=== PATIENT | female | born 1950 | race Caucasian/White ===

== ENCOUNTER 2016-05-08 05:30 | Inpatient (IN) | payer OTHER ==
--- NOTE | 2016-05-07 17:22 | GHP ---
DATE OF ADMISSION: 05/08/2016 HISTORY: The patient is a pleasant 66-year-old woman who sustained an L2 compression fracture in February of 2016 when picking up a heavy log that she tossed into a fire place and then fell backward. Currently, 80% of her symptoms are referable to left lower extremity pain and 20% are referable to low back pain. She does have a history of osteopenia. The patient denies any loss of bowel or bladder control, but she has had urinary retention for the last 1 year and uses a catheter occasionally. On a 1-10 scale, her daily pain is a 9. Treatments have included pain medication, epidural steroid injections, and physical therapy as well as massage therapy. She recently underwent an EMG that showed lumbar radiculopathy. SOCIAL HISTORY: Negative for tobacco. She uses alcohol occasionally. She is retired. FAMILY HISTORY: Cancer, lung disease, and heart disease. PAST MEDICAL HISTORY: Osteopenia, urinary retention, lumbar spinal stenosis, hypercholesterolemia, and coronary artery disease. PAST SURGICAL HISTORY: Bilateral cataract surgery and left tear duct surgery. DRUG ALLERGIES: None. MEDICATIONS: Fluoxetine, Troy, clonazepam, Lipitor, tamsulosin, and gabapentin. REVIEW OF SYSTEMS: A 10-point review is negative for any pertinent positives. PHYSICAL EXAM: VITAL SIGNS: Blood pressure is 128/82. Height is 5 feet 6 inches tall and weight is 130 pounds. CARDIAC: Regular rate and rhythm without any detectable murmur, rub, or gallop. LUNGS: Clear to auscultation. She has no wheezing or rhonchi. ABDOMEN: Benign with good bowel sounds and is nontender. NEUROLOGIC: Shows her gait to be antalgic. Strength of bilateral lower extremities is 5/5 throughout, with the exception of the left quadriceps, is 4/5. Light touch is intact to bilateral lower extremities. Patellar and Achilles reflexes are 1/4 bilaterally. Straight-leg raising is negative x2. SPINE: She does have an active shingles breakout at approximately T11 on the left. She is also tender to palpation in the left sciatic notch. L2 is mildly tender to palpation. RADIOGRAPHIC STUDIES: MRI of the lumbar spine dated 04/09/2016 shows an endplate fracture inferiorly at L2. This appears to be a compression fracture. She also has moderate degenerative disk disease, L3-4. There is scoliosis. There is also a left L2-3 disc herniation and severe stenosis, L3-4, L4-5, and moderate at L2-3. Recent DEXA scan does show osteoporosis. IMPRESSION: 1. Osteoporotic L2 compression fracture. 2. Left L2-3 disc herniation. 3. Left L3 radiculopathy. 4. Degenerative lumbar scoliosis. 5. Severe stenosis, L3-L5, and moderate stenosis, L2-3. PLAN: The patient will be admitted for an L2-L5 partial laminectomy and posterior fusion with instrumentation using intraspinous process devices. Potential risks, benefits, possible complications have been thoroughly discussed with the patient including, but not limited to, dural tear with CSF leak, meningitis, nerve root injury, partial or complete paralysis, lack of improvement in symptomatology, specifically her left leg pain and weakness, nonunion, breakage or pullout of internal fixation, need for further surgery, DVT, PE, pneumonia, stroke, heart attack, hemorrhage, blindness, and . The patient understands the risks and benefits and wishes to proceed with the aforementioned operation. I anticipate a 2-3 day hospital stay. /[id number]/MODL MTDD
[2016-05-08] MEDS ORDERED: LIDOCAINE 1% 5 ML SDV ONE (06:36)
[2016-05-08] MEDS ORDERED: BACITRACIN 50,000 UNITS/10 ML SYR IRR ONE (06:46)
[2016-05-08] MEDS ORDERED: BUPIVACAINE 0.25% 30 ML SDV ONE (06:46)
[2016-05-08] MEDS ORDERED: THROMBIN (RECOMBINANT) 20,000 UNIT VIAL TP ONE (06:46)
[2016-05-08] MEDS ORDERED: fentaNYL 250 MCG/5 ML INJ ONE (07:11)
[2016-05-08] MEDS ORDERED: PROPOFOL/EMULSION 500 MG/50 ML BOTTLE IV ONE (07:11)
[2016-05-08] MEDS ORDERED: MIDAZOLAM 2 MG/2 ML VIAL ONE (07:15)
[2016-05-08] MEDS ORDERED: REMIFENTANIL HCL 1 MG VIAL ONE (07:46)
[2016-05-08] MEDS ORDERED: ceFAZolin 2 GM/DEXTROSE 100 ML IV ONE (08:00)
[2016-05-08] MEDS ORDERED: VASOPRESSIN 20 UNIT/ML VIAL ONE (08:29)
[2016-05-08] MEDS ORDERED: AVITENE POWDER 1 GM JAR TP ONE (08:34)
[2016-05-08] MEDS ORDERED: SUGAMMADEX SODIUM 200 MG/2 ML VIAL IVP ONE (09:01)
[2016-05-08] MEDS ORDERED: THROMBIN (RECOMBINANT) 5,000 UNIT VIAL TP ONE (09:03)
[2016-05-08] MEDS ORDERED: PHENYLEPHRINE HCL 100 MCG/ML SYR ONE (10:07)
[2016-05-08] MEDS ORDERED: ROCURONIUM 50 MG/5 ML VIAL ONE ×2 (10:07)
[2016-05-08] MEDS ORDERED: epHEDrine SULFATE 10 MG/ML SYR ONE (10:07)
[2016-05-08] MEDS ORDERED: DEXAMETHASONE 4 MG/ML VIAL ONE (10:27)
[2016-05-08] MEDS ORDERED: ONDANSETRON 4 MG/2 ML VIAL ONE (10:27)
[2016-05-08] MEDS ORDERED: ceFAZolin 1 GM VIAL ONE (10:34)
[2016-05-08] MEDS ORDERED: ONDANSETRON DISINTEGRATING 4 MG TAB PO PRN (10:43)
[2016-05-08] MEDS ORDERED: PROMETHAZINE HCL 25 MG/ML INJ IVP PRN (10:43)
[2016-05-08] MEDS ORDERED: ONDANSETRON 4 MG/2 ML VIAL IVP PRN (10:43)
[2016-05-08] MEDS ORDERED: LACTULOSE 20 GM/30 ML UDCUP PO PRN (10:43)
[2016-05-08] MEDS ORDERED: POLYETHYLENE GLYCOL 3350 17 GM PKT PO PRN (10:43)
[2016-05-08] MEDS ORDERED: PROCHLORPERAZINE MALEATE 10 MG TAB PO PRN (10:43)
[2016-05-08] MEDS ORDERED: DIAZEPAM 5 MG TAB PO PRN (10:43)
[2016-05-08] MEDS ORDERED: diphenhydrAMINE 25 MG CAP PO PRN (10:43)
[2016-05-08] MEDS ORDERED: BISACODYL 10 MG SUPP PR PRN (10:43)
[2016-05-08] MEDS ORDERED: DIAZEPAM 10 MG/2 ML SYR IVP PRN (10:43)
[2016-05-08] MEDS ORDERED: MAGNESIUM HYDROXIDE 30 ML UDCUP PO PRN (10:43)
[2016-05-08] MEDS ORDERED: ACETAMINOPHEN 325 MG TAB PO PRN (10:43)
--- NOTE | 2016-05-08 10:43 | POSTOPPROG ---
Post Op Note Date of Operation: 05/08/16 Surgeon: Kaykay Woodard Third Miller: Jarrett De Los Santos SA Anesthesiologist: MD Jazmine Anesthesia: GET(General Endotracheal) Pre-op Diagnosis: Left L3 radic, L2 comp fx, L2-5 severe stenosis, scoliosis Post-op Diagnosis: same Indication: L2 comp fx, LLE pain, stenosis, scoliosis Procedure: L2-5 partial lamis, L2-5 post fusion, instru with ISPDs Findings: severe osteoporosis, sev. stenosisL2-5, scoliosis Inf/Abcess present in the surg proc area at time of surgery?: No Depth: Deep Incisional (Fascial) EBL: 100 cc Complications: None. 'No changes in neuromonitoring, Drains: Devin Harry
[2016-05-08] MEDS ORDERED: HYDROCODONE/APAP 5/325 TAB PO PRN (10:49)
[2016-05-08] MEDS: HYDROCODONE/APAP 10/325 TAB PO PRN (13:50)
--- NOTE | 2016-05-08 14:37 | GOP ---
DATE OF OPERATION: 05/08/2016 SURGEON: Kaykay Garza MD DEFECTIVE CIGARETTE SLITTER: Krishna De Los Santos SA. ANESTHESIA: General endotracheal intubation. ANESTHESIOLOGIST: PREOPERATIVE DIAGNOSIS: 1. L2 compression fracture. 2. Severe spinal stenosis L3-4, L4-5, and moderate stenosis L2-3. 3. Left L3 radiculopathy. 4. Degenerative lumbar scoliosis. POSTOPERATIVE DIAGNOSIS: 1. L2 compression fracture. 2. Severe spinal stenosis L3-4, L4-5, and moderate stenosis L2-3. 3. Left L3 radiculopathy. 4. Degenerative lumbar scoliosis. PROCEDURE PERFORMED: 1. L2-3, L3-4 and L4-5 partial laminectomies, bilateral foraminotomies. 2. L2-L5 posterolateral arthrodesis. 3. L2-L5 posterior nonsegmental instrumentation with [employer] interspinous process devices. 4. Use of size large bone morphogenic protein and crushed cancellous allograft for arthrodesis L2-L 5. FINDINGS: ESTIMATED BLOOD LOSS: 100 cc. INDICATIONS: Gabi is a pleasant 66-year-old woman who sustained a compression fracture in February of 2016. She has had severe left lower extremity pain and low back pain since then. She has tried numerous nonoperative treatments, including epidural steroid injection, pain medication and massage therapy. She also underwent an EMG of the left lower extremity that did show a lumbar radiculopath y. Most of her pain is in the left L3 distribution. A DEXA bone density scan did show osteoporosis . Patient is elected to undergo surgery. No guarantees were given in regard to surgical outcome. Potential risks, benefits, and possible complications have been thoroughly discussed with the patien t, including but not limited to, dural tear with CSF leak, meningitis, nerve root injury, partial or complete paralysis, cauda equina syndrome, lack of improvement of symptomatology, breakage or pullo ut of internal fixation, need for further surgery, infection, DVT, PE, pneumonia, stroke, heart giuseppe ck, hemorrhage, blindness, and . DESCRIPTION OF PROCEDURE: After obtaining both written and verbal consent from the patient, she was brought to the operating room where she underwent a general endotracheal intubation. Patient recei viky IV antibiotics. Shelton catheter was placed. The patient was rolled to the prone position on the Hedrick table. All 4 extremities were padded well. The face and eyes were padded per the anesthes iologist. A lateral fluoroscopic x-ray was obtained using an 18-gauge needle as a metallic marker. A time-out was then performed for the entire operating room team, confirming patient's name, date o f , planned surgical procedure, including levels and sides. The lumbar spine was prepped and d raped in a normal sterile fashion. A midline longitudinal incision was made from L2-L5. The incisi on was brought down through skin and subcutaneous tissues into the overlying dorsal fascia. Paraspi nal muscles were stripped in a subperiosteal fashion. A self-retaining retractor was placed. An in traoperative x-ray was obtained for localization. This showed the metallic marker to be at the L4 s pinous process. This was removed. The operating microscope was brought in for further visualizatio n. The patient's scoliosis was quite evident as was her significant osteoporosis. Under the operat ing microscope, a rongeur was used to remove the supraspinous and interspinous ligaments at L2-3, L3 -4 and L4-5. Local bone was saved for the arthrodesis. A 2-0 curved curette was used to create a p hermann between the ligamentum flavum and the epidural space at L2-3. It should also be mentioned that somatosensory evoked potentials, motor evoked potentials and EMGs were being performed throughout t he entire surgery. A 2 mm Kerrison and 3 mm Kerrison were used to create a laminotomy at L2-3. Lig amentum flavum was quite severely hypertrophied, causing pclrjzev-bf-xwrsib stenosis. Given the pat ient's left L3 radiculopathy, the L2-3 level on the left was very carefully observed. There was sev ere foraminal stenosis bilaterally, left greater than right, and this was decompressed using a 2 mm Kerrison. Care was taken to protect the dura at all times. The left foramen was visualized and the exiting L2 nerve root was fully decompressed as well as the traversing left L3 nerve root as well. The disk bulge was not a herniation or free fragment, and therefore it was left in place. Then, th e L3-4 level was addressed in a similar fashion. The ligamentum flavum was severely hypertrophied c ausing profound central lateral recess stenosis and foraminal stenosis. Furthermore the scoliosis p layed a part in the foraminal stenosis. The ligamentum flavum was removed using a 2 and 3 mm Kerris on, and foraminotomies were performed as well, and there was severe stenosis bilaterally. Then, the L4-5 level was addressed. This level also showed severe central stenosis, lateral recess stenosis and bilateral foraminal stenosis. This is mainly due to loss of disk space height and degenerative disk disease. The ligamentum flavum was removed completely, and the dura was fully decompressed as well as the exiting nerve roots. As mentioned, the patient had very severe osteoporosis. Then, at this time, Gel-Foam was placed over the dura at the L2-3, L3-4 and L4-5 levels. There were no polanco es in spinal cord monitoring. Using the [employer] Spine StabiLink System, the caliper was utilized t o measure the interspinous spaces. At L4-5, there was a 10 mm space at L3-4; it was 8 mm, and at L2 -3 the decompression and opening was 12 mm. Therefore the appropriate sized dual lamina interspinou s process clamps were assembled and placed. Initially, the 10 mm dual lamina interspinous process d evice was attached at the L4-5 level with very good purchase of the lamina interspinous process and tightened down. It was torqued per the denial resolution specialist's recommendation, and then the research home economist was rem estee. The tray device and the locking device were in good contact with the bone. Then, the same wa s performed at L3-4, which was an 8 mm dual lamina clamp and at L2-3 was a 12 mm. All had good purc hase and were placed in tandem from L2-L5. An AP and a lateral fluoroscopic view showed good positi on of internal fixation from L2-L5. Irrigation was performed. Hemostasis was obtained to the best of our ability, but because the patient still had some very mild oozing a [address] was place d deep to the fascial layer and sewn in with a 2-0 nylon suture. The deep fascial layer was closed using a #1 Vicryl, and then the subcutaneous layers were closed with a 2-[address] skin [address] aples. 20 cc of 0.25% Marcaine was infiltrated into the subcutaneous tissues for additional postope rative pain control. A sterile dressing was applied. Lumbar Warm and Form corset was placed. Mary ent was rolled to the supine position after x-rays had been obtained, showing good position of the i nterspinous process devices to L2-L5. There were no changes in spinal cord monitoring. Shelton jannette ter was removed, and patient was extubated in the operating room and brought to the recovery room in satisfactory condition. POSTOPERATIVE PLAN: Close neurologic observation, close airway observation, PT/OT and pain control. /[id number]/MODL
[2016-05-08] MEDS: D5W 1/2 NS W/ 20 KCl/L 1,000 ML IV SCH (14:59)
[2016-05-08] MEDS: morphINE SR 15 MG TAB PO SCH (20:32)
[2016-05-08] MEDS: SENNOSIDES/DOCUSATE SODIUM TAB PO SCH (20:32)
[2016-05-08] MEDS: clonazePAM 0.5 MG TAB PO SCH (20:32)
[2016-05-08] MEDS: FAMOTIDINE 20 MG/NACL 50 ML IV SCH (20:33)
[2016-05-08] MEDS ORDERED: GABAPENTIN 100 MG CAP PO SCH (21:00)
[2016-05-09] MEDS: D5W 1/2 NS W/ 20 KCl/L 1,000 ML IV SCH (02:15)
[2016-05-09] MEDS: HYDROCODONE/APAP 10/325 TAB PO PRN ×2 (02:16→19:25)
[2016-05-09] MEDS: HYDROmorphONE/DILAUDID 1 MG/ML SYR IVP PRN ×2 (06:35→19:25)
[2016-05-09] MEDS: SENNOSIDES/DOCUSATE SODIUM TAB PO SCH ×2 (09:42→21:14)
[2016-05-09] MEDS: morphINE SR 15 MG TAB PO SCH ×2 (09:42→21:14)
[2016-05-09] MEDS: FAMOTIDINE 20 MG/NACL 50 ML IV SCH ×2 (09:43→21:15)
[2016-05-09] MEDS: CHOLECALCIFEROL VIT D3 1,000 UNITS TAB PO SCH (09:43)
[2016-05-09] MEDS: IRBESARTAN 150 MG TAB PO SCH (09:43)
[2016-05-09] MEDS: ATORVASTATIN CALCIUM 10 MG TAB PO SCH (09:43)
[2016-05-09] MEDS: FLUoxetine 20 MG CAP PO SCH (09:43)
[2016-05-09] MEDS: clonazePAM 0.5 MG TAB PO SCH ×2 (09:43→21:13)
[2016-05-09 15:27] VITALS: O2SAT 93
--- NOTE | 2016-05-09 15:45 | SOAPPROG ---
SOAP Progress Note Assessment/Plan: Assessment: post op day 1, s/p L2-5 partial lami, post fusion, instru with ISPD. Pt doing quite well. LLE preop nerve pain has resolved. Plan: Discussed with pt her preop Gabepentin use. Will change order and start to wean her. Cont PT and OT (shower tomorrow). Probable d/c to home tomorrow with home health care. 05/09/16 15:42 Subjective: Pt very pleased that Left hip and leg pain are gone. Objective: Vital Signs Temp Pulse Resp BP Pulse Ox 36.8 C 66 16 107/68 93 05/09/16 15:26 05/09/16 15:26 05/09/16 15:26 05/09/16 15:26 05/09/16 15:26 05/08/16 05/09/16 05/10/16 05:59 05:59 05:59 Intake Total 3800 Output Total 1175 630 Balance 2625 -630 Lumbar drain functioning properly. BLE motor 5/5. Mechelle's negative x 2. ICD10 Worksheet Patient Problems: Problems Problem Status Onset Hypochloremia Acute Hyponatremia Acute Spinal stenosis Acute Urinary tract infection Acute
[2016-05-09] MEDS: GABAPENTIN 300 MG CAP PO SCH ×2 (16:25→21:14)
[2016-05-09 23:23] VITALS: PULSE 71; RESP 17; TEMP 98.5
[2016-05-10] MEDS ORDERED: FAMOTIDINE 20 MG TAB PO SCH (09:30)
--- NOTE | 2016-05-10 09:59 | SOAPPROG ---
SOAP Progress Note Assessment/Plan: Assessment: post op day 1, s/p L2-5 partial lami, post fusion, instru with ISPD. Pt doing quite well. LLE preop nerve pain has resolved. Plan: Discussed with pt her preop Gabepentin use. Will change order and start to wean her. Cont PT and OT (shower tomorrow). Probable d/c to home tomorrow with home health care. 05/09/16 15:42 05/10/16 09:58 post op day 2, pt doing very well Ready for discharge to home. Subjective: Pt has no leg pain. Objective: Vital Signs Temp Pulse Resp BP Pulse Ox 36.9 C 71 17 136/82 H 93 05/09/16 23:21 05/09/16 23:21 05/09/16 23:21 05/09/16 23:21 05/09/16 23:21 05/09/16 05/10/16 05/11/16 05:59 05:59 05:59 Intake Total 3800 400 Output Total 1175 1225 Balance 2625 -825 Lumbar wound clean and dry. Drain removed without difficulty BLE motor 5/5 ICD10 Worksheet Patient Problems: Problems Problem Status Onset Hypochloremia Acute Hyponatremia Acute Spinal stenosis Acute Urinary tract infection Acute
--- NOTE | 2016-05-10 10:06 | PDIAF ---
- Diagnosis Diagnosis: s/p L2-5 lami, fusion, instr Code Status: Full Code - Medication Management Discharge Medications: Medications to Continue on Transfer Atorvastatin Calcium [Lipitor 10 mg (*)] 10 mg PO DAILY 05/03/15 [Last Taken 08:00] Cholecalciferol Vit D3 [Vitamin D3 (*)] 2,000 units PO DAILY 05/03/15 [Last Taken 05/02/16] FLUoxetine [Prozac 20 MG (*)] 20 mg PO DAILY 05/03/15 [Last Taken 05/07/16 08:00 ] Irbesartan [Avapro 150 mg (*)] 150 mg PO DAILY 05/03/15 [Last Taken 05/07/16 08: 00] clonazePAM [Klonopin (*)] 0.5 mg PO BID 05/03/15 [Last Taken 05/07/16 08:00] Acetaminophen [Tylenol 325mg (*)] 325 - 650 mg PO Q4HRS PRN #0 tab 05/10/16 [ Last Taken Unknown] Atorvastatin Calcium [Lipitor 10 mg (*)] 10 mg PO DAILY #0 tab 05/10/16 [Last Taken Unknown] Cholecalciferol Vit D3 [Vitamin D3 (*)] 2,000 units PO DAILY #0 tab 05/10/16 [ Last Taken Unknown] Diazepam [Valium 5 MG (*)] 5 mg PO Q8 PRN #30 tab 05/10/16 [Last Taken Unknown] FLUoxetine [Prozac 20 MG (*)] 20 mg PO DAILY #0 cap 05/10/16 [Last Taken Unknown ] Gabapentin [Neurontin 300 MG (*)] 300 mg PO TID #42 cap 05/10/16 [Last Taken Unknown] Irbesartan [Avapro 150 mg (*)] 150 mg PO DAILY #0 tab 05/10/16 [Last Taken Unknown] clonazePAM [Klonopin (*)] 0.5 mg PO BID #0 tab 05/10/16 [Last Taken Unknown] morphINE SR [Ms Contin/Oramorph 15 mg (*)] 15 mg PO BID #20 tab 05/10/16 [Last Taken Unknown] Discharge Medications: Refer to the Discharge Home Medication list for PRN reason. PICC Care - Routine: N/A - Orders Services needed: Registered Nurse, Physical Therapy Home Care Face to Face: 05/10/16 Diet Recommendation: no restrictions on diet Diet Texture: Regular Texture Diet Jeffry Stockings Discontinue Date: 05/13/16 Wound Care Instructions: Daily dry dressing change to lumbar wound. Pt to shower daily with dressing off. Activity/Weight Bearing Restrictions: NO bending, lifting, twisting. - Follow Up Care Current Providers and Referrals: Lilian Sandoval MD [Primary Care Provider] -
[2016-05-10] MEDS: ATORVASTATIN CALCIUM 10 MG TAB PO SCH (10:14)
[2016-05-10] MEDS: CHOLECALCIFEROL VIT D3 1,000 UNITS TAB PO SCH (10:14)
[2016-05-10] MEDS: clonazePAM 0.5 MG TAB PO SCH (10:14)
[2016-05-10] MEDS: FLUoxetine 20 MG CAP PO SCH (10:14)
[2016-05-10] MEDS: GABAPENTIN 300 MG CAP PO SCH (10:15)
[2016-05-10] MEDS: morphINE SR 15 MG TAB PO SCH (10:15)
[2016-05-10] MEDS: SENNOSIDES/DOCUSATE SODIUM TAB PO SCH (10:15)
[2016-05-10] MEDS: IRBESARTAN 150 MG TAB PO SCH (10:24)
[2016-05-10 10:26] VITALS: BP 109/73
[2016-05-10] MEDS: FAMOTIDINE 20 MG/NACL 50 ML IV SCH (10:30)
--- NOTE | 2016-05-15 12:51 | GDS ---
HOSPITAL COURSE: The patient is a pleasant 66-year-old woman who sustained a compression fracture o f L2 in February 2016. Since that time, she has had severe left lower extremity pain and increasing back pain. She has tried numerous nonoperative treatments. She was admitted to the hospital for s urgical treatment of the fracture as well as severe stenosis at L3-4 and L4-5 and moderate stenosis at L2-3. On 05/08/2016, patient was admitted and underwent a general anesthetic. She then underwent L2-3, L3 -4, and L4-5 partial laminectomies with bilateral foraminotomies and an L2-L5 posterolateral arthrod esis with nonsegmental instrumentation using [employer] interspinous process devices. At the time of surgery, the patient was found to have osteoporosis, which we knew in advance. Surg frances went well. There were no changes in spinal cord monitoring during the surgical procedure. A 10 flat PATRICA drain was placed in the wound for postoperative hemostasis. Postoperatively, it should be noted that the patient's left lower extremity pain resolved immediately and she was very happy. She was seen in physical therapy and occupational therapy. She was kept on IV antibiotics until the dr de la cruz was removed by me on postoperative day #2. The patient tolerated the procedure well, and pain control was reasonably straightforward with MS Co ntin 15 mg 1 p.o. b.i.d. as well as Valium and Percocet p.r.n. Neurologically, she improved with in creased strength of the left lower extremity. The wound was clean, dry, and intact without any signs of infection during her hospital course, and the dressing was changed daily. The patient tolerated a regular diet. There was no significant nausea or vomiting. Patient was discharged to home on 05/10/2016 with home health services, including PT and registered nurse for both ambulation around the home as well as wound care and dressing changes. The patient's instructions are as follows: She needs to wear her back brace at all times except for during showers. She needs to have her dressing changed once a day and no ointment applied. She ne eds to avoid antiinflammatories and no bending, lifting, or twisting. Patient has a followup appoin tment in my office in approximately 2 weeks. If she were to notice any signs of infection or have a ny increasing pain or neurologic changes, she is to call my office immediately or go to the nearest emergency room. Prescriptions were given. These included Percocet, Valium, and Keflex. The iliana lu has done exceedingly well and is being discharged to home in satisfactory condition on 05/10/2016. /[id number]/MODL
== END 2016-05-10 14:32 | disposition home health service (06) | DRG 460 ==
LOC: F3N 05:30
PROVIDERS: ADMIT Orthopaedic Surgery Orthopaedic Surgery of the Spine; ATTEND Orthopaedic Surgery Orthopaedic Surgery of the Spine
PROC: 00NY0ZZ Release Lumbar Spinal Cord, Open Approach (ICD-10-PCS; principal; 2016-05-08 07:15)
PROC: 3E0U0GB Introduction of Recombinant Bone Morphogenetic Protein into Joints, Open Approach (ICD-10-PCS; principal; 2016-05-08 07:15)
PROC: 0SG10AJ Fusion of 2 or more Lumbar Vertebral Joints with Interbody Fusion Device, Posterior Approach, Anterior Column, Open Approach (ICD-10-PCS; principal; 2016-05-08 07:15)
DX: M51.16 Intervertebral disc disorders with radiculopathy, lumbar region (principal); M48.06 Spinal stenosis, lumbar region; M41.26 Other idiopathic scoliosis, lumbar region; M80.08XD Age-related osteoporosis with current pathological fracture, vertebra(e), subsequent encounter for fracture with routine healing; I10 Essential (primary) hypertension
CPT/HCPCS: 97116-GP; 97161-GP; 97165-GO; 97535-GO; C1713; C1762; G8978-GP-CI; G8979-GP-CI; G8980-GP-CI; G8987-GO-CJ; G8988-GO-CI; G8989-GO-CI; J0690; J1100; J1170; J2250; J2370; J2405; J2704; J3010

== ENCOUNTER 2016-05-31 15:38 | Emergency (ER) | payer OTHER ==
[2016-05-31] MEDS ORDERED: NS 1,000 ML IV ONE (15:54)
--- NOTE | 2016-05-31 16:12 | EDPHY ---
H & P Stated Complaint: Liquid stool, constipation, thinks has bowel obst. Time Seen by Provider: 05/31/16 15:53 HPI/ROS: CHIEF COMPLAINT: Constipation in the setting of chronic narcotic use HISTORY OF PRESENT ILLNESS: The patient presents to the ED with complaints of constipation in the setting of fairly frequent narcotic use since her lumbar surgery several weeks ago. The patient reports her last normal bowel movement was 2-3 days ago. She has been using MiraLax. The patient denies any acute numbness or weakness since her surgery. She has no complaints of fever. REVIEW OF SYSTEMS: A comprehensive 10 point review of systems is otherwise negative aside from elements mentioned in the history of present illness. Source: Patient Exam Limitations: No limitations - Personal History Current Tetanus/Diphtheria Vaccine: Unsure Current Tetanus Diphtheria and Acellular Pertussis (TDAP): Unsure - Medical/Surgical History Hx Asthma: No Hx Chronic Respiratory Disease: No Hx Diabetes: No Hx Cardiac Disease: No Hx Renal Disease: No Hx Cirrhosis: No Hx Alcoholism: No Hx HIV/AIDS: No Hx Splenectomy or Spleen Trauma: No Other PMH: htn, eye surgery after blocked tearduck. anxiety. depression, ORIF , fusion L1-5-2017. - Social History Smoking Status: Never smoked - Physical Exam Exam: General Appearance: Alert, no distress Eyes: Pupils equal and round no pallor or injection ENT, Mouth: Mucous membranes moist Respiratory: There are no retractions, lungs are clear to auscultation Cardiovascular: Regular rate and rhythm Gastrointestinal: Minimal lower abdominal tenderness, normal bowel sounds, no peritoneal signs Neurological: A&O, normal motor function, normal sensory exam, normal cranial nerves Skin: Surgical incision clean dry and intact Musculoskeletal: Neck is supple nontender Extremities: symmetrical, full range of motion Constitutional: Initial Vital Signs Temperature (C) 36.9 C 05/31/16 15:39 Heart Rate 98 05/31/16 15:39 Respiratory Rate 16 05/31/16 15:39 Blood Pressure 112/78 05/31/16 15:39 O2 Sat (%) 97 05/31/16 15:39 O2 Delivery Mode Room Air Allergies/Adverse Reactions: No Known Allergies Allergy (Verified 05/31/16 15:48) Home Medications: Medication Instructions Recorded Atorvastatin Calcium [Lipitor 10 10 mg PO DAILY 05/03/15 mg (*)] Cholecalciferol Vit D3 [Vitamin D3 2,000 units PO DAILY 05/03/15 (*)] FLUoxetine [Prozac 20 MG (*)] 20 mg PO DAILY 05/03/15 Irbesartan [Avapro 150 mg (*)] 150 mg PO DAILY 05/03/15 clonazePAM [Klonopin (*)] 0.5 mg PO BID 05/03/15 Acetaminophen [Tylenol 325mg (*)] 325 - 650 mg PO Q4HRS PRN #0 tab 05/10/16 Atorvastatin Calcium [Lipitor 10 10 mg PO DAILY #0 tab 05/10/16 mg (*)] Cholecalciferol Vit D3 [Vitamin D3 2,000 units PO DAILY #0 tab 05/10/16 (*)] Diazepam [Valium 5 MG (*)] 5 mg PO Q8 PRN #30 tab 05/10/16 FLUoxetine [Prozac 20 MG (*)] 20 mg PO DAILY #0 cap 05/10/16 Gabapentin [Neurontin 300 MG (*)] 300 mg PO TID #42 cap 05/10/16 Irbesartan [Avapro 150 mg (*)] 150 mg PO DAILY #0 tab 05/10/16 clonazePAM [Klonopin (*)] 0.5 mg PO BID #0 tab 05/10/16 Docusate Sodium [Colace 100 MG (*)] 100 mg PO BID PRN #30 cap 05/31/16 Magnesium Citrate [Magnesium 300 ml PO ONCE #1 bottle 05/31/16 Citrate 300 ml (*)] Oxycodone HCl/Acetaminophen 05/31/16 Medical Decision Making - Diagnostics Imaging: KUB x-ray: Mild right-sided constipation noted, no perforation or obstruction. Images reviewed by myself and with radiologist Dr. Chen. ED Course/Re-evaluation: The patient presents to the ED with complaints of constipation with chronic narcotic use. The patient has only been using Metamucil as a laxative. The patient has a benign abdominal examination. A KUB of her abdomen demonstrates no evidence of a bowel perforation or obstruction. The patient will be discharged home with a prescription for magnesium citrate and Colace. I have asked her to return to the emergency department for vomiting , worsening abdominal pain, fever, acute neurologic symptoms or other concerns. She will follow up with her primary care provider this week as scheduled. Differential Diagnosis: Differential diagnose this considered includes constipation, perforation, obstruction - Data Points Laboratory Results: Laboratory Results 05/31/16 16:10 05/31/16 16:10 05/31/16 05/31/16 16:10 16:10 WBC 6.37 10^3/uL 10^3/uL (3.80-9.50) RBC 4.39 10^6/uL 10^6/uL (4.18-5.33) Hgb 14.5 g/dL g/dL (12.6-16.3) Hct 42.2 % % (38.0-47.0) MCV 96.1 fL fL (81.5-99.8) MCH 33.0 pg pg (27.9-34.1) MCHC 34.4 g/dL g/dL (32.4-36.7) RDW 14.0 % % (11.5-15.2) Plt Count 110 10^3/uL L 10^3/uL (150-400) MPV 11.2 fL fL (8.7-11.7) Neut % (Auto) 55.2 % % (39.3-74.2) Lymph % (Auto) 26.5 % % (15.0-45.0) [place] % (Auto) 14.4 % H % (4.5-13.0) Eos % (Auto) 2.8 % % (0.6-7.6) Baso % (Auto) 0.8 % % (0.3-1.7) Nucleat RBC Rel Count 0.0 % % (0.0-0.2) Absolute Neuts (auto) 3.51 10^3/uL 10^3/uL (1.70-6.50) Absolute Lymphs (auto) 1.69 10^3/uL 10^3/uL (1.00-3.00) Absolute Monos (auto) 0.92 10^3/uL H 10^3/uL (0.30-0.80) Absolute Eos (auto) 0.18 10^3/uL 10^3/uL (0.03-0.40) Absolute Basos (auto) 0.05 10^3/uL 10^3/uL (0.02-0.10) Absolute Nucleated RBC 0.00 10^3/uL 10^3/uL (0-0.01) Immature Gran % 0.3 % % (0.0-1.1) Immature Gran # 0.02 10^3/uL 10^3/uL (0.00-0.10) Sodium 139 mEq/L mEq/L (134-144) Potassium 3.2 mEq/L L mEq/L (3.5-5.2) Chloride 105 mEq/L mEq/L (97-110) Carbon Dioxide 18 mEq/l L mEq/l (22-31) Anion Gap 16 mEq/L mEq/L (8-16) BUN 11 mg/dL mg/dL (7-23) Creatinine 0.6 mg/dL mg/dL (0.6-1.0) Estimated GFR > 60 Glucose 116 mg/dL H mg/dL (70-100) Calcium 10.7 mg/dL H mg/dL (8.5-10.4) Phosphorus 1.9 mg/dL L mg/dL (2.5-4.5) Medications Given: Discontinued Medications Sodium Chloride (Ns) 1,000 mls @ 0 mls/hr IV ONCE ONE PRN Reason: Wide Open Stop: 05/31/16 15:55 Last Admin: 05/31/16 16:19 Dose: 1,000 mls Departure - Departure Disposition: Home, Routine, Self-Care Clinical Impression: Constipation Condition: Good Instructions: Constipation (ED) Additional Instructions: 1. Please take magnesium citrate as prescribed for constipation. 2. Please return to the ED for severe abdominal pain, vomiting worsening symptoms. 3. Please take Colace as directed for assistance with your constipation while using narcotic pain medications. 4. Please schedule a follow-up appointment with your primary care provider for any unimproved symptoms. Referrals: Lilian Sandoval MD [Primary Care Provider] - As per Instructions Prescriptions: Docusate Sodium [Colace 100 MG (*)] 100 mg PO BID PRN #30 cap PRN Reason: for constipation Magnesium Citrate [Magnesium Citrate 300 ml (*)] 300 ml PO ONCE #1 bottle
[2016-05-31 16:24] LABS: % IMMATURE GRANULYOCYTES 0.3 % (0.0-1.1); ABSOLUTE IMMATURE GRANULOCYTES 0.02 10^3/uL (0.00-0.10); ADD DIFF? NO; ADD MORPH? NO; ADD SCAN? NO; ATYPICAL LYMPHOCYTE FLAG 10 (0-99); FRAGMENT RBC FLAG 0 (0-99); HEMATOCRIT 42.2 % (38.0-47.0); HEMOGLOBIN 14.5 g/dL (12.6-16.3); LEFT SHIFT FLG 0 (0-99); LIPEMIA HEMOLYSIS FLAG 90 (0-99); MEAN CELL HEMOGLOBIN CONCENTR. 34.4 g/dL (32.4-36.7); MEAN CELL VOLUME 96.1 fL (81.5-99.8); MEAN PLATELET VOLUME 11.2 fL (8.7-11.7); PLATELET CLUMPS FLAG 0 (0-99); PLATELET COUNT 110 10^3/uL (150-400); RED BLOOD CELL COUNT 4.39 10^6/uL (4.18-5.33)
[2016-05-31 16:37] LABS: ANION GAP 16 mEq/L (8-16); CALCIUM 10.7 mg/dL (8.5-10.4); CARBON DIOXIDE 18 mEq/l (22-31); CHLORIDE 105 mEq/L (97-110); CREATININE 0.6 mg/dL (0.6-1.0); GLOMERULAR FILTRATION RATE > 60; GLUCOSE 116 mg/dL (70-100); POTASSIUM 3.2 mEq/L (3.5-5.2); SODIUM 139 mEq/L (134-144)
[2016-05-31 17:14] VITALS: BP 121/64; PULSE 74; RESP 18; TEMP 97.9; O2SAT 95
== END 2016-05-31 17:25 | disposition home or self-care (01) ==
DX: K59.00 Constipation, unspecified (principal); I10 Essential (primary) hypertension
CPT/HCPCS: 96374

== ENCOUNTER → 2016-05-31 | Outpatient (CLI) | payer OTHER | LOC: FIMAGING 15:01 | PROVIDERS: ATTEND Orthopaedic Surgery Orthopaedic Surgery of the Spine | DX: Z09 Encounter for follow-up examination after completed treatment for conditions other than malignant neoplasm (principal); Z98.1 Arthrodesis status ==

== ENCOUNTER 2016-06-18 15:51 | Inpatient (IN) | payer OTHER ==
--- NOTE | 2016-06-18 16:13 | EDPHY ---
H & P Stated Complaint: laminectomy with ? overmedication Time Seen by Provider: 06/18/16 16:13 - Personal History Current Tetanus/Diphtheria Vaccine: No - Medical/Surgical History Hx Asthma: No Hx Chronic Respiratory Disease: No Hx Diabetes: No Hx Cardiac Disease: No Hx Renal Disease: No Hx Cirrhosis: No Hx Alcoholism: No Hx HIV/AIDS: No Hx Splenectomy or Spleen Trauma: No Other PMH: htn, eye surgery after blocked tearduck. anxiety. depression, ORIF , fusion L1-5-2017. - Social History Smoking Status: Never smoked Constitutional: Initial Vital Signs Temperature (C) 36.7 C 06/18/16 15:57 Heart Rate 100 06/18/16 15:57 Respiratory Rate 22 H 06/18/16 15:57 Blood Pressure 101/46 L 06/18/16 15:57 O2 Sat (%) 92 06/18/16 15:57 O2 Delivery Mode Room Air Allergies/Adverse Reactions: No Known Allergies Allergy (Verified 06/18/16 15:52) Home Medications: Medication Instructions Recorded Acetaminophen [Tylenol 325mg (*)] 325 - 650 mg PO Q4HRS PRN #0 tab 05/10/16 Atorvastatin Calcium [Lipitor 10 10 mg PO DAILY #0 tab 05/10/16 mg (*)] Cholecalciferol Vit D3 [Vitamin D3 2,000 units PO DAILY #0 tab 05/10/16 (*)] Diazepam [Valium 5 MG (*)] 5 mg PO Q8 PRN #30 tab 05/10/16 FLUoxetine [Prozac 20 MG (*)] 20 mg PO DAILY #0 cap 05/10/16 Gabapentin [Neurontin 300 MG (*)] 300 mg PO TID #42 cap 05/10/16 Irbesartan [Avapro 150 mg (*)] 150 mg PO DAILY #0 tab 05/10/16 Tramadol HCl 50 mg PO Q4H PRN 06/18/16 oxyCODONE/APAP 5/325 [Percocet 1 tab PO Q6H PRN 06/18/16 5/325 (*)] Medical Decision Making - Diagnostics Imaging: Imaging Impressions Head CT 06/18/16 17:18 Impression: 1. Mild cerebral and cerebellar atrophy. 2. No acute hemorrhage, hydrocephalus, or mass effect. 3. Cerebrovascular atherosclerosis. 4. No definite acute infarct. 5. Mild microvascular ischemic gliosis. 6. No epidural or subdural hematoma. Findings and recommendations discussed with Emergency Department physician, Kin Hardin MD at 17:56 hour, 06/18/2016. Final report concurs with initial preliminary interpretation. ED Course/Re-evaluation: CHIEF COMPLAINT: Confusion, chills, constipation. HISTORY OF PRESENT ILLNESS: The patient is a 66-year-old female status post L2- 5 fusion 6 weeks ago who presents with one week of constipation, confusion, and chills. She was sent in by her back specialist who believes she has been taking too many narcotics. She denies fever, chest pain, shortness of breath, or other complaints. The patient is able to answer basic questions but appears to be altered and the history is thus limited. REVIEW OF SYSTEMS: Limited due to AMS. PHYSICAL EXAM: HR, BP, O2 Sat, RR. Temp noted General Appearance: Alert, well hydrated, and non-toxic appearing. Patient lying curled in bed. Answers questions mostly appropriately. Head: Atraumatic without scalp tenderness or obvious injury Eyes: Pupils equal, round, reactive to light and accommodation, EOMI, no trauma , no injection. Ears: Clear bilaterally, no perforation, normal landmarks Nose: Atraumatic, no rhinorrhea, clear. Throat: There is no erythema or exudates, no lesions, normal tonsils, mucus membranes moist. Neck: Supple, 2+ carotid upstroke, nontender, no lymphadenopathy. Respiratory: No retractions, no distress, no wheezes, and no accessory muscle use. Lungs are clear to auscultation bilaterally. Cardiovascular: Regular rate and rhythm, no murmurs, rubs, or gallops. Bilateral carotid, radial, dorsalis pedis, and posterior tibial pulses intact. Good capillary refill all extremities. Gastrointestinal: Abdomen is soft, nontender, non-distended, no masses, no rebound, no guarding, no peritoneal signs. Musculoskeletal: Normal active ROM of all extremities, atraumatic. Neurological: Alert, appropriate, and interactive. The patient has normal DTRs and non-focal cranial nerves, motor, sensory, and cerebellar exam. Skin: No rashes, good turgor, no nodules on palpation. Past medical history: Hypertension, anxiety, depression. Past surgical history: Lumbar fusion. Family history: N/A. Social history: Here with daughter. DIAGNOSTICS/PROCEDURES/CRITICAL CARE TIME: I reviewed the patient's imaging on the PACS system. See "imaging" section for radiologist reports. DIFFERENTIAL DIAGNOSIS: The differential diagnosis included but was not limited to hypoglycemia, infectious process, electrolyte abnormality, head injury, UTI, neurologic process, anemia, cardiac process, and intoxicants. MEDICAL DECISION MAKING: I reviewed the note sent by the patient's Dr. Garza who reports that the patient has a one week history of confusion, constipation, and chills probably from being over-medicated and needs to be admitted. The patient is 6 weeks status-post Lumbar 2-5 fusion. On exam her surgical incision looks clean, dry, and intact. She is altered and a head CT has been ordered. She denies any other complaints but the history is limited. We will obtain blood work, blood cultures , and urine sample to determine what is the cause of the patient's symptoms as it may be more complex than simple over-medication. An IV was established. WBC elevated at 13.05. Lactic acid elevated at 3.3. Potassium low at 2.6. Patient does not meet sepsis criteria. 1750: Head CT results conveyed to me negative by Dr. Patel, radiology. Patient will be straight cathed to obtain urine as she has not urinated yet. 1805: Consulted with Dr. Pepper, hospitalist. She accepts admission. We discussed sepsis criteria. This patient does not meet SERS criteria. She is clearly dehydrated and hypoperfusing. 1837: Consulted with Dr. Sandoval, the patient's PCP. She is aware of the patient and will admit her. - Data Points Laboratory Results: Laboratory Results 06/18/16 16:30 06/18/16 16:30 06/18/16 06/18/16 06/18/16 18:05 18:05 16:30 WBC RBC Hgb Hct MCV MCH MCHC RDW Plt Count MPV Neut % (Auto) Lymph % (Auto) [place] % (Auto) Eos % (Auto) Baso % (Auto) Nucleat RBC Rel Count Absolute Neuts (auto) Absolute Lymphs (auto) Absolute Monos (auto) Absolute Eos (auto) Absolute Basos (auto) Absolute Nucleated RBC Immature Gran % Seg Neutrophils % Band Neutrophils % Lymphocytes % Monocytes % Immature Gran # Absolute Seg Neuts Absolute Band Neuts Absolute Lymphocytes Absolute Monocytes RBC/WBC/PLT Morphology Platelet Estimate Smear Review By PT 17.2 SEC H SEC (12.0-15.0) INR 1.41 H (0.83-1.16) APTT 32.9 SEC SEC (23.0-38.0) VBG Lactic Acid Sodium Potassium Chloride Carbon Dioxide Anion Gap BUN Creatinine Estimated GFR Glucose Calcium Total Bilirubin Conjugated Bilirubin Unconjugated Bilirubin Urine Color GIANNA Urine Appearance HAZY Urine pH 6.0 (5.0-7.5) Ur Specific [place] 1.011 (1.002-1.030) Urine Protein 1+ H (NEGATIVE) Urine Ketones NEGATIVE (NEGATIVE) Urine Blood 1+ H (NEGATIVE) Urine Nitrate POSITIVE H (NEGATIVE) Urine Bilirubin NEGATIVE (NEGATIVE) Urine Urobilinogen 2.0 EU H EU (0.2-1.0) Ur Leukocyte Esterase 3+ H (NEGATIVE) Urine RBC 1-3 /hpf /hpf (0-3) Urine WBC 50-182 /hpf H /hpf (0-3) Ur Epithelial Cells NONE SEEN /lpf /lpf (NONE-1+) Urine Bacteria 3+ /hpf H /hpf (NONE SEEN) Urine Glucose NEGATIVE (NEGATIVE) Urine Opiates Screen NEGATIVE (NEGATIVE) Acetaminophen Urine Barbiturates NEGATIVE (NEGATIVE) Ur Phencyclidine Scrn NEGATIVE (NEGATIVE) Ur Amphetamine Screen NEGATIVE (NEGATIVE) U Benzodiazepines Scrn NON-NEGATIVE H (NEGATIVE) Urine Cocaine Screen NEGATIVE (NEGATIVE) U Marijuana (THC) Screen NEGATIVE (NEGATIVE) Ethyl Alcohol 06/18/16 06/18/16 06/18/16 16:30 16:30 16:30 WBC 13.05 10^3/uL H 10^3/uL (3.80-9.50) RBC 4.31 10^6/uL 10^6/uL (4.18-5.33) Hgb 14.0 g/dL g/dL (12.6-16.3) Hct 38.7 % % (38.0-47.0) MCV 89.8 fL fL (81.5-99.8) MCH 32.5 pg pg (27.9-34.1) MCHC 36.2 g/dL g/dL (32.4-36.7) RDW 14.7 % % (11.5-15.2) Plt Count 56 10^3/uL L 10^3/uL (150-400) MPV 11.3 fL fL (8.7-11.7) Neut % (Auto) Not Reported Lymph % (Auto) Not Reported [place] % (Auto) Not Reported Eos % (Auto) Not Reported Baso % (Auto) Not Reported Nucleat RBC Rel Count 0.0 % % (0.0-0.2) Absolute Neuts (auto) Not Reported Absolute Lymphs (auto) Not Reported Absolute Monos (auto) Not Reported Absolute Eos (auto) Not Reported Absolute Basos (auto) Not Reported Absolute Nucleated RBC 0.00 10^3/uL 10^3/uL (0-0.01) Immature Gran % Not Reported Seg Neutrophils % 54 % % Band Neutrophils % 13 % % Lymphocytes % 8 % % Monocytes % 25 % % Immature Gran # Not Reported Absolute Seg Neuts 7.05 10^/uL H 10^/uL (1.70-6.50) Absolute Band Neuts 1.70 10^3/uL H 10^3/uL (0.00-0.70) Absolute Lymphocytes 1.04 10^3/uL 10^3/uL (1.00-3.00) Absolute Monocytes 3.26 10^3/uL H 10^3/uL (0.30-0.80) RBC/WBC/PLT Morphology NORMAL (NORMAL) Platelet Estimate ADEQUATE (ADEQ) Smear Review By Pending PT INR APTT VBG Lactic Acid 3.3 mmol/L H mmol/L (0.7-2.1) Sodium 128 mEq/L L mEq/L (134-144) Potassium 2.6 mEq/L L* mEq/L (3.5-5.2) Chloride 90 mEq/L L mEq/L (97-110) Carbon Dioxide 23 mEq/l mEq/l (22-31) Anion Gap 15 mEq/L mEq/L (8-16) BUN 49 mg/dL H mg/dL (7-23) Creatinine 1.3 mg/dL H mg/dL (0.6-1.0) Estimated GFR 41 Glucose 116 mg/dL H mg/dL (70-100) Calcium 10.2 mg/dL mg/dL (8.5-10.4) Total Bilirubin 3.4 mg/dL H mg/dL (0.1-1.4) Conjugated Bilirubin 1.9 mg/dL H mg/dL (0.0-0.5) Unconjugated Bilirubin 1.5 mg/dL H mg/dL (0.0-1.1) Urine Color Urine Appearance Urine pH Ur Specific [place] Urine Protein Urine Ketones Urine Blood Urine Nitrate Urine Bilirubin Urine Urobilinogen Ur Leukocyte Esterase Urine RBC Urine WBC Ur Epithelial Cells Urine Bacteria Urine Glucose Urine Opiates Screen Acetaminophen < 10 mcg/mL L mcg/mL (10.0-30.0) Urine Barbiturates Ur Phencyclidine Scrn Ur Amphetamine Screen U Benzodiazepines Scrn Urine Cocaine Screen U Marijuana (THC) Screen Ethyl Alcohol < 10 mg/dL mg/dL (0-10) Medications Given: Discontinued Medications Sodium Chloride (Ns) 1,000 mls @ 0 mls/hr IV ONCE ONE PRN Reason: Wide Open Stop: 06/18/16 19:44 Last Admin: 06/18/16 16:35 Dose: 1,000 mls Departure - Departure Disposition: [facility] Inpatient Acute Clinical Impression: Hypokalemia, Hyponatremia, Hypochloremia, Renal insufficiency Altered mental status Qualifiers: Altered mental status type: unspecified Qualified Code(s): R41.82 - Altered mental status, unspecified Condition: Fair Report Scribed for: Kin Hardin Report Scribed by: Abilio Banks Date of Report: 06/18/16 Time of Report: 16:55
[2016-06-18 16:39] LABS: ADD DIFF? YES; ADD MORPH? NO; ADD SCAN? NO; ATYPICAL LYMPHOCYTE FLAG 70 (0-99); FRAGMENT RBC FLAG 0 (0-99); HEMATOCRIT 38.7 % (38.0-47.0); LEFT SHIFT FLG 20 (0-99); LIPEMIA HEMOLYSIS FLAG 90 (0-99); MEAN CELL HEMOGLOBIN 32.5 pg (27.9-34.1); MEAN CELL HEMOGLOBIN CONCENTR. 36.2 g/dL (32.4-36.7); MEAN CELL VOLUME 89.8 fL (81.5-99.8); MEAN PLATELET VOLUME 11.3 fL (8.7-11.7); PLATELET CLUMPS FLAG 0 (0-99); PLATELET COUNT 56 10^3/uL (150-400); RED BLOOD CELL COUNT 4.31 10^6/uL (4.18-5.33); RED CELL DISTRIBUTION WIDTH 14.7 % (11.5-15.2)
[2016-06-18 17:06] LABS: INR 1.41 (0.83-1.16); PROTIME(PATIENT) 17.2 SEC (12.0-15.0)
[2016-06-18 17:07] LABS: APTT 32.9 SEC (23.0-38.0)
[2016-06-18 17:08] LABS: ANION GAP 15 mEq/L (8-16); BILIRUBIN,TOTAL 3.4 mg/dL (0.1-1.4); CALCIUM 10.2 mg/dL (8.5-10.4); CARBON DIOXIDE 23 mEq/l (22-31); CHLORIDE 90 mEq/L (97-110); CREATININE 1.3 mg/dL (0.6-1.0); ETHANOL SERUM < 10 mg/dL (0-10); GLOMERULAR FILTRATION RATE 41; GLUCOSE 116 mg/dL (70-100); SODIUM 128 mEq/L (134-144)
[2016-06-18 17:20] LABS: POTASSIUM 2.6 mEq/L (3.5-5.2)
[2016-06-18 17:30] LABS: PLATELET ESTIMATE ADEQUATE (ADEQ)
[2016-06-18 17:35] LABS: BILIRUBIN-CONJUGATED 1.9 mg/dL (0.0-0.5); BILIRUBIN-UNCONJUGATED 1.5 mg/dL (0.0-1.1); LACGHOST ORDER
[2016-06-18] MEDS ORDERED: POTASSIUM CL 20 MEQ TAB ONE (18:47)
[2016-06-18] MEDS ORDERED: NS 1,000 ML IV ONE (19:43)
--- NOTE | 2016-06-18 20:05 | SOAPPROG ---
SOAP Progress Note Assessment/Plan: Assessment: Plan: 06/18/16 20:15 1. Mental status change: per hx, this has been going on for about a week. May be primarily related to electrolyte abnormalities, dehydration, not eating well as her tox screen is negative except for benzodiazepines, which she has been on long-term. WBC is mildly elevated, though she is non-toxic appearing. Will hydrate, replace K+. She had some blood-tinged sputum that I observed, so will check CXR. Blood cx pending. UA just came back positive, which could also explain her sx. Will treat and send for cx. 2. Back pain: Had surgery not that long ago, and states she fell last night and broke her bones. Per friend, Dr. Woodard didn't check lumbar spine xray in office today, so will go ahead and check. Will hold percocet as she doesn't appear to have been taking it, and use tramadol instead for pain. 3. Hyponatremia--will hydrate 4. Hypokalemia--has received some K+ PO while here, so will continue to replace 5. Dehydration 6. Hypertension--normally on irbesartan. Will hold for now, and BP ok. 7. DVT prophylaxis: will use sequential compression device. 06/18/16 20:24 06/18/16 20:26 06/18/16 20:46 06/18/16 21:08 06/18/16 21:13 Subjective: 66 yo woman who underwent lumbar lami/fusion on 05/08/[address] Woodard. Surgery went well. Pt had been recovering well. Her brother stayed with her post -operatively for awhile, and since then, a friend of hers has been staying with her. Her brother called this afternoon from [place], concerned that she was very confused and not doing well. She had a f/u appt with Dr. Woodard this afternoon. Her friend took her to that appointment, and then subsequently brought her to the ER for confusion. Pt states she fell in the bathroom last night and broke all her bones. Her friend reports that Aman, the friend who has been staying with her, states she started to become confused about a week ago. She states that pt has become confused with narcotics in the past, but it usually resolves. This has persisted to where she isn't really able to care for herself. Pt didn't remember that she'd see Dr. Woodard today. She isn't all that sure what she has been taking. She does report some runny nose. She coughed up some bloody sputum while I was talking with her. She denies any SOB, fever, abdominal pain. She reports constipation and may have taken a laxative to relieve it. Appetite has been poor, and she hasn't been eating or drinking very well. She has a hx of alcoholism, but ran out of alcohol while her brother was here, and it hasn't been replaced. She also has a hx of urinary retention and frequent UTIs, but states that has been much better since the surgery. She denies dysuria. In the ED, her WBC is mildly elevated at 13.05. Differential is pending. H/H normal. Plt count low at 56, not a new finding, but lower than previous (110 on 05/31/16). INR is elevated at 1.4. Na is low at 128, K+ low at 2.6, Bun 49, Cr 1.3, bili up at 3.4. Urine tox screen is +for benzodiazepines, neg for alcohol, opiates. CT head neg. Blood cx and UA pending. Objective: Vital Signs Temp Pulse Resp BP Pulse Ox 36.7 C 77 18 111/67 95 06/18/16 19:25 06/18/16 19:25 06/18/16 19:25 06/18/16 19:25 06/18/16 19:25 PT 17.2 SEC (12.0-15.0) H 06/18/16 16:30 INR 1.41 (0.83-1.16) H 06/18/16 16:30 General: awake, alert. Fidgety but NAD HEENT: NC, AT. PERRL, EOMI. No scleral icterus. Auditory canals clear. TMs without erythema. Good light reflex. O/p without erythema. Neck: supple. No thyromegaly, thyroid tenderness, thyroid nodules. No carotid bruits. Lungs: clear bilaterally Back: some mild ecchymoses L back below scapula. No swelling, and not tender with palpation. Tender over surgical incision in lumbar spine. Incision is well- healed. Cardiovascular: RRR without murmur Abdomen: normal bowel sounds, soft, NT. No hepatosplenomegaly, masses Extremities: no clubbing, cyanosis, edema Neurologic: alert. Answers questions appropriately but inaccurately per her friend regarding events of today. Does acknowledge confusion. Moving all extremities. Restless. States its because her back hurts. Back brace around her thoracic spine rather than lumbar spine. ICD10 Worksheet Patient Problems: Problems Problem Status Onset Altered mental status Acute Hypochloremia Acute Hypokalemia Acute Hyponatremia Acute Renal insufficiency Acute Hypochloremia Acute Hyponatremia Acute Spinal stenosis Acute Urinary tract infection Acute
[2016-06-18 20:15] LABS: COLOR AMBER; LEUKOCYTE ESTERASE,URINE 3+ (NEGATIVE); NITRITE,URINE POSITIVE (NEGATIVE)
[2016-06-18 20:23] LABS: BACTERIA 3+ /hpf (NONE SEEN); WBC,URINE 50-182 /hpf (0-3)
[2016-06-18] MEDS ORDERED: LACTULOSE 20 GM/30 ML UDCUP PO PRN (20:27)
[2016-06-18] MEDS ORDERED: POLYETHYLENE GLYCOL 3350 17 GM PKT PO PRN (20:27)
[2016-06-18] MEDS ORDERED: ONDANSETRON DISINTEGRATING 4 MG TAB PO PRN (20:27)
[2016-06-18] MEDS ORDERED: ONDANSETRON 4 MG/2 ML VIAL IVP PRN (20:27)
[2016-06-18] MEDS ORDERED: BISACODYL 10 MG SUPP PR PRN (20:27)
[2016-06-18] MEDS ORDERED: MAGNESIUM HYDROXIDE 30 ML UDCUP PO PRN (20:27)
[2016-06-18] MEDS ORDERED: DIAZEPAM 5 MG TAB PO PRN (20:39)
[2016-06-18] MEDS ORDERED: CIPROFLOXACIN 250 MG TAB PO SCH (20:48)
--- NOTE | 2016-06-18 21:44 | GHP ---
[f rep st] HISTORY AND PHYSICAL DATE OF ADMISSION: 06/18/2016 HISTORY OF PRESENT ILLNESS: The patient is a 66-year-old woman who underwent lumbar laminectomy/fusion on 05/08/[address] Woodard. The surgery went well and the patient had been recovering well. Her brother stayed with her postoperatively for a while and since then, a friend of hers has been staying with her. Her brother called this afternoon from [place] concerned that she was very confused and not doing very well. She had a followup appointment scheduled this afternoon with Dr. Woodard, and her friend took her to that appointment and then subsequently brought her to the emergency department for further evaluation of the confusion. The patient states that she fell in the bathroom last night and broke all her bones. Her friend who accompanies her reports that Aman, the friend who had been staying with the patient, states that she started to become confused about a week ago. She reports also that the patient has become confused with narcotics in the past but that usually resolves. This confusion has persisted to where she really isn't able to take care of herself. The patient did not remember that she had seen Dr. Woodard today, and she isn't all that sure what she has been taking in terms of medication. She does report some runny nose. She coughed up some bloody sputum while I was talking with her. She denies any shortness of breath, fever , abdominal pain. She does report some constipation and may have taken a laxative to relieve it. Her appetite has been for poor, and she has not been eating or drinking very well. She does have a history of alcoholism but ran out of alcohol while her brother was here and it has not been replaced. She also has a history of urinary retention associated with urinary tract infection , but has not had any problems with that since her surgery. She has not had any dysuria. In the ED her white blood cell count is mildly elevated at 13.05. The differential is pending. Her hemoglobin and hematocrit are normal. Platelet count is low at 56, but this is not a new finding, although lower than previous. Last time it was assessed was on 05/31/2016 and platelet count at that time was 110. Her INR is mildly elevated at 1.4, sodium is low 128, potassium low at 2.6, BUN 49, creatinine 1.3. Bilirubin is mildly elevated at 3.4. Her urine tox screen is positive for benzodiazepines and negative for alcohol and opiates. CT of her head was negative. Blood cultures and UA are pending at this time. PAST MEDICAL HISTORY: Is significant for anxiety, chronic cough, elevated cholesterol, high blood pressure, rib fracture, right shoulder fracture, urinary retention, alcohol abuse. MEDICATIONS: Tylenol p.r.n., atorvastatin 10 mg daily, vitamin D 2000 international units daily, fluoxetine 20 mg daily, gabapentin 300 mg three times daily which she reports that she discontinued, irbesartan 150 mg daily, Percocet 5/325 q.6 hours p.r.n., tramadol 50 mg q.4 hours p.r.n. ALLERGIES: Amoxicillin causes vomiting, and Levaquin has caused a tendinopathy. PAST SURGICAL HISTORY: Tonsillectomy, cataracts, tear duct surgery, L2 through 5 lumbar laminectomy/fusion in 2017. FAMILY HISTORY: Her father of lymphoma. Her mother of pancreatic cancer. She has 1 brother with mental health issues and sister with lupus. REVIEW OF SYSTEMS: CONSTITUTIONAL: She denies any fever or chills. Decreased appetite. HEENT: She has had some runny nose but no sore throat. RESPIRATORY : No cough or shortness of breath. CARDIOVASCULAR: No chest pain. GI: No abdominal pain. No nausea, vomiting. She does report some constipation and may have had diarrhea in response to a laxative. I think this is a somewhat unreliable history. GENITOURINARY: No dysuria. MUSCULOSKELETAL: Low back pain. SKIN: No rashes. No itching. NEUROLOGIC: She does acknowledge confusion. PHYSICAL EXAMINATION: VITAL SIGNS: Blood pressure is 115/69, heart rate 84, respiratory rate 16, O2 saturation 95% on room air. Temp 36.7. GENERAL: She is awake, alert, and cooperative. She is somewhat fidgety and restless but in no acute distress. HEENT: Normocephalic atraumatic. Pupils are equal, round, reactive to light. Extraocular movements are intact. No scleral icterus. Auditory canals are clear. The tympanic membranes are without erythema. Good light reflex. Oropharynx without erythema or exudate. NECK: Supple. No cervical adenopathy. No thyromegaly, thyroid tenderness or thyroid nodules. No carotid bruits. LUNGS: Clear bilaterally. BACK: She has some mild ecchymoses on her left back below the scapula. No swelling and no tenderness with palpation. She is tender over the surgical incision in her lumbar spine. The incision is well healed. CARDIOVASCULAR: Regular rate and rhythm without murmur. ABDOMEN: Normoactive bowel sounds. Soft, nontender. No hepatosplenomegaly or masses. EXTREMITIES: No clubbing, cyanosis, or edema. NEUROLOGIC: She is alert. She is answering questions appropriately but inaccurately per her friend regarding events of today. She does acknowledge confusion. She is moving all extremities. She is restless, states it is because her back hurts. Her back brace was actually around her thoracic spine rather than her lumbar spine. ASSESSMENT AND PLAN: 1. Mental status change. Per her history, this has been going on for about a week. It may be primarily related to her electrolyte abnormalities, dehydration and not eating well. Her tox screen is negative except for benzodiazepines which she has been taking long-term. Her white blood cell count is mildly elevated, though she is nontoxic appearing. We will hydrate and replace potassium. She did have some blood-tinged sputum that I observed, so we will check chest x-ray. Blood cultures are pending. Urinalysis just came back in and is positive, which may also explain her symptoms. We will treat for urinary tract infection. 2. Back pain. She had surgery not that long ago and states she fell last night and broke her bones. Accuracy of that history is not entirely clear per her friend. Dr. Woodard did not check a lumbar spine x-ray in the office today so we will go ahead and check that. 3. Hyponatremia. We will hydrate. 4. Hypokalemia. She did receive some potassium orally while here in the emergency department, so we will continue to replace. 5. Dehydration. 6. Hypertension normally on irbesartan. We will hold for now as her blood pressure is slightly on the low side; though not worrisome. 7. Deep venous thrombosis prophylaxis. We will use sequential compression device. /[id number]/MODL MTDD
[2016-06-18] MEDS ORDERED: POTASSIUM CL 10 MEQ TAB PO ONE (23:45)
[2016-06-19] MEDS: SULFAMETHOX/TMP 800/160 MG 1 TAB PO SCH ×2 (00:45→09:02)
[2016-06-19] MEDS: SENNOSIDES/DOCUSATE SODIUM TAB PO SCH ×3 (00:45→20:30)
[2016-06-19] MEDS: NS W/ 20 KCl/L 1,000 ML IV SCH ×3 (00:46→23:42)
[2016-06-19] MEDS: traMADol 50 MG TAB PO PRN ×2 (01:33→19:08)
[2016-06-19 05:44] LABS: ADD DIFF? YES; ADD MORPH? NO; FRAGMENT RBC FLAG 0 (0-99); HEMATOCRIT 33.9 % (38.0-47.0); HEMOGLOBIN 12.5 g/dL (12.6-16.3); LEFT SHIFT FLG 30 (0-99); LIPEMIA HEMOLYSIS FLAG 90 (0-99); MEAN CELL HEMOGLOBIN 33.2 pg (27.9-34.1); MEAN CELL HEMOGLOBIN CONCENTR. 36.9 g/dL (32.4-36.7); MEAN CELL VOLUME 89.9 fL (81.5-99.8); MEAN PLATELET VOLUME 13.5 fL (8.7-11.7); PLATELET CLUMPS FLAG 0 (0-99); PLATELET COUNT 64 10^3/uL (150-400); RED BLOOD CELL COUNT 3.77 10^6/uL (4.18-5.33); RED CELL DISTRIBUTION WIDTH 14.9 % (11.5-15.2)
[2016-06-19 05:48] LABS: ADD SCAN? NO; ATYPICAL LYMPHOCYTE FLAG 110 (0-99)
[2016-06-19 05:59] LABS: ALANINE AMINOTRANSFERASE 50 IU/L (9-52); ALBUMIN 2.7 g/dL (3.5-5.0); ALKALINE PHOSPHATASE 128 IU/L (38-126); ANION GAP 11 mEq/L (8-16); ASPARTATE AMINOTRANSFERASE 70 IU/L (14-46); BILIRUBIN,TOTAL 3.1 mg/dL (0.1-1.4); CALCIUM 9.5 mg/dL (8.5-10.4); CARBON DIOXIDE 19 mEq/l (22-31); CHLORIDE 103 mEq/L (97-110); GLOMERULAR FILTRATION RATE 55; GLUCOSE 99 mg/dL (70-100); POTASSIUM 3.1 mEq/L (3.5-5.2); SODIUM 133 mEq/L (134-144); TOTAL PROTEIN 5.7 g/dL (6.3-8.2)
[2016-06-19 06:10] LABS: BILIRUBIN-UNCONJUGATED 1.1 mg/dL (0.0-1.1)
[2016-06-19 06:16] LABS: PLATELET ESTIMATE DECREASED (ADEQ)
[2016-06-19] MEDS ORDERED: POTASSIUM CL 10 MEQ TAB PO ONE ×2 (07:25→20:13)
[2016-06-19] MEDS: ATORVASTATIN CALCIUM 10 MG TAB PO SCH (09:02)
[2016-06-19] MEDS: FLUoxetine 20 MG CAP PO SCH (09:02)
[2016-06-19] MEDS: CHOLECALCIFEROL VIT D3 1,000 UNITS TAB PO SCH (09:02)
--- NOTE | 2016-06-19 09:20 | SOAPPROG ---
SOAP Progress Note Assessment/Plan: Assessment: Plan: 06/18/16 20:15 1. Mental status change: per hx, this has been going on for about a week. May be primarily related to electrolyte abnormalities, dehydration, not eating well as her tox screen is negative except for benzodiazepines, which she has been on long-term. WBC is mildly elevated, though she is non-toxic appearing. Will hydrate, replace K+. She had some blood-tinged sputum that I observed, so will check CXR. Blood cx pending. UA just came back positive, which could also explain her sx. Will treat and send for cx. 2. Back pain: Had surgery not that long ago, and states she fell last night and broke her bones. Per friend, Dr. Woodard didn't check lumbar spine xray in office today, so will go ahead and check. Will hold percocet as she doesn't appear to have been taking it, and use tramadol instead for pain. 3. Hyponatremia--will hydrate 4. Hypokalemia--has received some K+ PO while here, so will continue to replace 5. Dehydration 6. Hypertension--normally on irbesartan. Will hold for now, and BP ok. 7. DVT prophylaxis: will use sequential compression device. 06/18/16 20:24 06/18/16 20:26 06/18/16 20:46 06/18/16 21:08 06/18/16 21:13 06/19/16 09:16 1. 06/19/16 09:17 1. Mental status change: better this morning but not at baseline. CXR negative 2. UTI: cx pending. Initial blood cx with gram + rods, E.coli. Likely from urine. She is afebrile. WBC is a little more elevated today. Will change from bactrim to ceftriaxone as she has hx of tendinopathy with levaquin 3. Back pain: no complaints of pain today so will cancel LS spine xray. 4. electrolyte abnormalities: improving with hydration, K+ replacement 5. dehydration: creatinine now normal. Will buff cap IV once she is taking PO adequately. 6. hypertension: will continue to hold irbesartan. BPs ok. 7. abnormal LFTs: will follow. Not done last night so unclear if they are increasing or decreasing. No abdominal pain. 06/19/16 09:22 06/19/16 09:24 06/19/16 09:25 Subjective: Feeling a little better today. Sitting up in bed eating. No complaints of back pain. Objective: Vital Signs Temp Pulse Resp BP Pulse Ox 36.6 C 80 18 108/68 97 06/19/16 08:40 06/19/16 08:40 06/19/16 08:40 06/19/16 08:40 06/19/16 08:40 Laboratory Results 06/19/16 05:31 06/19/16 05:31 06/18/16 06/19/16 06/20/16 05:59 05:59 05:59 Intake Total 1250 Balance 1250 PT 17.2 SEC (12.0-15.0) H 06/18/16 16:30 INR 1.41 (0.83-1.16) H 06/18/16 16:30 General: well-appearing, brighter this morning. No restlessness. Neck: no masses, adenopathy Lungs: clear Cardiovascular: RRR without murmur Abdomen: soft, NT Extremities: no edema Neuro: remains somewhat confused though a little better than last night ICD10 Worksheet Patient Problems: Problems Problem Status Onset Altered mental status Acute Hypochloremia Acute Hypokalemia Acute Hyponatremia Acute Renal insufficiency Acute Hypochloremia Acute Hyponatremia Acute Spinal stenosis Acute Urinary tract infection Acute
[2016-06-19] MEDS ORDERED: POTASSIUM CL 20 MEQ TAB PO ONE (18:26)
[2016-06-19 18:56] LABS: POTASSIUM 3.9 mEq/L (3.5-5.2)
[2016-06-20 05:20] LABS: % IMMATURE GRANULYOCYTES 1.1 % (0.0-1.1); ABSOLUTE IMMATURE GRANULOCYTES 0.14 10^3/uL (0.00-0.10); ADD DIFF? NO; ADD MORPH? NO; ADD SCAN? YES; FRAGMENT RBC FLAG 0 (0-99); HEMATOCRIT 34.4 % (38.0-47.0); HEMOGLOBIN 12.5 g/dL (12.6-16.3); LEFT SHIFT FLG 20 (0-99); LIPEMIA HEMOLYSIS FLAG 90 (0-99); MEAN CELL HEMOGLOBIN CONCENTR. 36.3 g/dL (32.4-36.7); MEAN CELL VOLUME 90.8 fL (81.5-99.8); MEAN PLATELET VOLUME 13.2 fL (8.7-11.7); PLATELET CLUMPS FLAG 10 (0-99); PLATELET COUNT 75 10^3/uL (150-400); RED BLOOD CELL COUNT 3.79 10^6/uL (4.18-5.33); RED CELL DISTRIBUTION WIDTH 15.3 % (11.5-15.2)
[2016-06-20 05:28] LABS: ATYPICAL LYMPHOCYTE FLAG 260 (0-99)
[2016-06-20 05:35] LABS: ALANINE AMINOTRANSFERASE 62 IU/L (9-52); ALBUMIN 2.4 g/dL (3.5-5.0); ALKALINE PHOSPHATASE 149 IU/L (38-126); ANION GAP 9 mEq/L (8-16); ASPARTATE AMINOTRANSFERASE 97 IU/L (14-46); BILIRUBIN,TOTAL 2.8 mg/dL (0.1-1.4); CALCIUM 8.8 mg/dL (8.5-10.4); CARBON DIOXIDE 16 mEq/l (22-31); CHLORIDE 106 mEq/L (97-110); CREATININE 0.9 mg/dL (0.6-1.0); GLOMERULAR FILTRATION RATE > 60; GLUCOSE 91 mg/dL (70-100); POTASSIUM 4.1 mEq/L (3.5-5.2); SODIUM 131 mEq/L (134-144); TOTAL PROTEIN 5.5 g/dL (6.3-8.2)
[2016-06-20 05:42] LABS: BILIRUBIN-CONJUGATED 1.7 mg/dL (0.0-0.5); BILIRUBIN-UNCONJUGATED 1.1 mg/dL (0.0-1.1)
[2016-06-20 06:19] LABS: SCAN NEGATIVE
[2016-06-20] MEDS: NS W/ 20 KCl/L 1,000 ML IV SCH ×2 (08:13→16:20)
--- NOTE | 2016-06-20 08:48 | SOAPPROG ---
SOAP Progress Note Assessment/Plan: Assessment: Plan: 06/20/16 08:48 e coli bacteremia, UTI with e coli, sensitive to rocephin, continue current dose and schedule, confirmed with ID confusion--add speech consult, clarity compared to baseline unclear l spine surgery--seems to be doing well. She was on gabapentin, but this has been tapered off safety concerns--PT/OT/ST Subjective: The patient feels fairly good. No unusual pain. Back pain is reasonable. Bladder symptoms of frequency persist. No dysuria. 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 She reports gluer and wedger dilated left pupil. No MARTINS Objective: Vital Signs Temp Pulse Resp BP Pulse Ox 36.7 C 61 18 124/96 H 95 06/20/16 07:49 06/20/16 07:49 06/20/16 07:49 06/20/16 07:49 06/20/16 07:49 Microbiology 06/18/16 22:20 Urine Culture - Final Urine,Catheterized Escherichia Coli Laboratory Results 06/20/16 05:02 06/20/16 05:02 06/19/16 06/20/16 06/21/16 05:59 05:59 05:59 Intake Total 1250 1050 Output Total 600 Balance 1250 450 PT 17.2 SEC (12.0-15.0) H 06/18/16 16:30 INR 1.41 (0.83-1.16) H 06/18/16 16:30 Gen: pleasant, tangential. States today is Thursday (Thursday) Knows June and 2016 but not number date HEENT: anisocoria, speech clear, content fair Lungs: dry cough, no crackles Heart: RRR no murmur Abd + bs soft NT, ND LE's no edema Neuro: scattered history and tangential answers CT head negative on admission. BCx's + for e coli, rocephin should cover CXR negative WBC improving LFT's elevating a bit electrolytes better ICD10 Worksheet Patient Problems: Problems Problem Status Onset Altered mental status Acute Hypochloremia Acute Hypokalemia Acute Hyponatremia Acute Renal insufficiency Acute Hypochloremia Acute Hyponatremia Acute Spinal stenosis Acute Urinary tract infection Acute
[2016-06-20] MEDS: FLUoxetine 20 MG CAP PO SCH (09:45)
[2016-06-20] MEDS: CHOLECALCIFEROL VIT D3 1,000 UNITS TAB PO SCH (09:45)
[2016-06-20] MEDS: ATORVASTATIN CALCIUM 10 MG TAB PO SCH (09:45)
[2016-06-20] MEDS: SENNOSIDES/DOCUSATE SODIUM TAB PO SCH ×2 (09:51→20:30)
[2016-06-20] MEDS: ACETAMINOPHEN 325 MG TAB PO PRN ×2 (16:16→22:33)
[2016-06-20 18:56] LABS: POTASSIUM 4.4 mEq/L (3.5-5.2)
[2016-06-21 04:54] LABS: % IMMATURE GRANULYOCYTES 1.7 % (0.0-1.1); ABSOLUTE IMMATURE GRANULOCYTES 0.18 10^3/uL (0.00-0.10); ADD DIFF? NO; ADD MORPH? NO; ADD SCAN? YES; FRAGMENT RBC FLAG 0 (0-99); HEMATOCRIT 34.1 % (38.0-47.0); LEFT SHIFT FLG 10 (0-99); LIPEMIA HEMOLYSIS FLAG 90 (0-99); MEAN CELL HEMOGLOBIN 32.7 pg (27.9-34.1); MEAN CELL HEMOGLOBIN CONCENTR. 35.2 g/dL (32.4-36.7); MEAN CELL VOLUME 92.9 fL (81.5-99.8); MEAN PLATELET VOLUME 12.5 fL (8.7-11.7); PLATELET CLUMPS FLAG 0 (0-99); PLATELET COUNT 79 10^3/uL (150-400); RED BLOOD CELL COUNT 3.67 10^6/uL (4.18-5.33); RED CELL DISTRIBUTION WIDTH 15.7 % (11.5-15.2)
[2016-06-21 04:55] LABS: ATYPICAL LYMPHOCYTE FLAG 210 (0-99)
[2016-06-21 05:13] LABS: ALANINE AMINOTRANSFERASE 63 IU/L (9-52); ALBUMIN 2.2 g/dL (3.5-5.0); ALKALINE PHOSPHATASE 140 IU/L (38-126); ANION GAP 6 mEq/L (8-16); ASPARTATE AMINOTRANSFERASE 94 IU/L (14-46); BILIRUBIN,TOTAL 2.3 mg/dL (0.1-1.4); CALCIUM 8.8 mg/dL (8.5-10.4); CARBON DIOXIDE 15 mEq/l (22-31); CHLORIDE 110 mEq/L (97-110); CREATININE 0.7 mg/dL (0.6-1.0); GLOMERULAR FILTRATION RATE > 60; GLUCOSE 88 mg/dL (70-100); SODIUM 131 mEq/L (134-144); TOTAL PROTEIN 5.3 g/dL (6.3-8.2)
[2016-06-21 05:19] LABS: BILIRUBIN-CONJUGATED 1.2 mg/dL (0.0-0.5); BILIRUBIN-UNCONJUGATED 1.1 mg/dL (0.0-1.1)
[2016-06-21 05:35] LABS: SCAN NEGATIVE
[2016-06-21] MEDS: CHOLECALCIFEROL VIT D3 1,000 UNITS TAB PO SCH (08:14)
[2016-06-21] MEDS: FLUoxetine 20 MG CAP PO SCH (08:14)
[2016-06-21] MEDS: ATORVASTATIN CALCIUM 10 MG TAB PO SCH (08:14)
[2016-06-21] MEDS: ACETAMINOPHEN 325 MG TAB PO PRN (08:18)
[2016-06-21] MEDS: SENNOSIDES/DOCUSATE SODIUM TAB PO SCH ×2 (08:21→20:16)
--- NOTE | 2016-06-21 10:19 | SOAPPROG ---
SOAP Progress Note Assessment/Plan: Assessment:E/coli sepsis from UTI. Plan:Cont IV antibiotics. PT/OT to assess safety at home. ID to help with choice of antibiotics when she gets home. 06/21/16 10:18 Subjective: Feeling better. No chills or sweats. Back is still painful but improved. Objective: Vital Signs Temp Pulse Resp BP Pulse Ox 36.3 C 61 16 128/73 H 90 L 06/21/16 07:16 06/21/16 07:16 06/21/16 07:16 06/21/16 07:16 06/21/16 07:16 Microbiology 06/18/16 22:20 Urine Culture - Final Urine,Catheterized Escherichia Coli Laboratory Results 06/21/16 04:20 06/21/16 04:20 06/20/16 06/21/16 06/22/16 05:59 05:59 05:59 Intake Total 1050 400 Output Total 600 801 200 Balance 450 -401 -200 PT 17.2 SEC (12.0-15.0) H 06/18/16 16:30 INR 1.41 (0.83-1.16) H 06/18/16 16:30 Afebrile. Lungs clear to asc. COR RRR, no significant murmur. No edema. ICD10 Worksheet Patient Problems: Problems Problem Status Onset Altered mental status Acute Hypochloremia Acute Hypokalemia Acute Hyponatremia Acute Renal insufficiency Acute Hypochloremia Acute Hyponatremia Acute Spinal stenosis Acute Urinary tract infection Acute
[2016-06-21] MEDS ORDERED: ALBUTEROL 3 ML DEYVIAL IH PRN (10:31)
[2016-06-21] MEDS ORDERED: OXYCODONE/APAP 5/325 TAB PO PRN (10:32)
[2016-06-21] MEDS: CEFUROXIME AXETIL 250 MG TAB PO SCH ×2 (12:44→20:11)
[2016-06-21] MEDS: IRBESARTAN 150 MG TAB PO SCH (12:55)
[2016-06-21] MEDS: GABAPENTIN 300 MG CAP PO SCH ×2 (17:31→20:16)
[2016-06-21 18:06] LABS: POTASSIUM 3.8 mEq/L (3.5-5.2)
[2016-06-21] MEDS ORDERED: POTASSIUM CL 10 MEQ TAB PO ONE (19:37)
[2016-06-22 05:13] LABS: POTASSIUM 3.8 mEq/L (3.5-5.2)
[2016-06-22] MEDS: GABAPENTIN 300 MG CAP PO SCH (07:33)
[2016-06-22] MEDS: SENNOSIDES/DOCUSATE SODIUM TAB PO SCH ×2 (07:33→23:33)
[2016-06-22] MEDS: ATORVASTATIN CALCIUM 10 MG TAB PO SCH (07:33)
[2016-06-22] MEDS: FLUoxetine 20 MG CAP PO SCH (07:33)
[2016-06-22] MEDS: CEFUROXIME AXETIL 250 MG TAB PO SCH ×2 (07:34→20:18)
[2016-06-22] MEDS: IRBESARTAN 150 MG TAB PO SCH (07:34)
[2016-06-22] MEDS: CHOLECALCIFEROL VIT D3 1,000 UNITS TAB PO SCH (07:35)
[2016-06-22] MEDS ORDERED: POTASSIUM CL 10 MEQ TAB PO ONE ×2 (07:48→19:43)
--- NOTE | 2016-06-22 11:50 | SOAPPROG ---
SOAP Progress Note Assessment/Plan: Assessment: 66 yo female w/ UTI/confusion - UTI - moved to ceftin po per ID on urine culture, will need 7 d treatment, bladder is finally starting to feel less spasms, has been having to get up hourly to void per her report and has been challenging sleeping, but today she reports she feels she is turning the corner and feeling better. -confusion/ms changes/encephalopathy - likely 2/2 UTI and possibly gabapentin as well. Will d/c gabapentin - she reports it would make her hallucinate about spiders in colors. Feeling more oriented and closer to baseline currently. Per RN Sherry she still has some fluctuations in cognition intermittently, would like this to stabilize prior to her being safe for d/c to home. -back pain - doing ok overall s/p surgery 3 weeks ago w/ Dr. Woodard, wearing brace, pain under fair control overall. -dispo - if cognition stays clear over next 24 hours possible d/c tomorrow w/ oral abx. Plan: 06/22/16 11:45 Subjective: Feels like she is doing better, less discomfort in bladder, thinking "more clearly" Objective: Vital Signs Temp Pulse Resp BP Pulse Ox 36.7 C 64 18 124/77 H 94 06/22/16 07:19 06/22/16 07:19 06/22/16 07:19 06/22/16 07:19 06/22/16 07:19 Laboratory Results 06/21/16 04:20 06/22/16 04:34 06/21/16 06/22/16 06/23/16 05:59 05:59 05:59 Intake Total 400 500 Output Total 801 200 Balance -401 300 PT 17.2 SEC (12.0-15.0) H 06/18/16 16:30 INR 1.41 (0.83-1.16) H 06/18/16 16:30 Gen: A&O, pleasant, sitting up in bed, answers questions appropriately HEENT: anisocoria (not new), decreased vision (not new) Chest: cta b CV: rrr Back: wearing brace Abd: soft nt nd mild suprapubic discomfort Ext: no edema ICD10 Worksheet Patient Problems: Problems Problem Status Onset Urinary tract infection Acute Hyponatremia Acute Spinal stenosis Acute Hypochloremia Acute Hypokalemia Acute Hyponatremia Acute Hypochloremia Acute Renal insufficiency Acute Altered mental status Acute
[2016-06-22 18:56] LABS: POTASSIUM 3.8 mEq/L (3.5-5.2)
[2016-06-22] MEDS: ACETAMINOPHEN 325 MG TAB PO PRN (20:18)
[2016-06-22 22:50] VITALS: O2SAT 94
[2016-06-23 05:32] LABS: POTASSIUM 3.9 mEq/L (3.5-5.2)
[2016-06-23] MEDS ORDERED: POTASSIUM CL 10 MEQ TAB PO ONE (07:29)
[2016-06-23 07:36] VITALS: BP 128/75; PULSE 58; RESP 12; TEMP 97.8
[2016-06-23] MEDS: SENNOSIDES/DOCUSATE SODIUM TAB PO SCH (08:43)
[2016-06-23] MEDS: CEFUROXIME AXETIL 250 MG TAB PO SCH (08:43)
[2016-06-23] MEDS: ATORVASTATIN CALCIUM 10 MG TAB PO SCH (08:44)
[2016-06-23] MEDS: CHOLECALCIFEROL VIT D3 1,000 UNITS TAB PO SCH (08:44)
[2016-06-23] MEDS: IRBESARTAN 150 MG TAB PO SCH (08:44)
[2016-06-23] MEDS: FLUoxetine 20 MG CAP PO SCH (09:01)
--- NOTE | 2016-06-23 09:06 | SOAPPROG ---
SOAP Progress Note Assessment/Plan: Assessment: Plan: 06/18/16 20:15 1. Mental status change: per hx, this has been going on for about a week. May be primarily related to electrolyte abnormalities, dehydration, not eating well as her tox screen is negative except for benzodiazepines, which she has been on long-term. WBC is mildly elevated, though she is non-toxic appearing. Will hydrate, replace K+. She had some blood-tinged sputum that I observed, so will check CXR. Blood cx pending. UA just came back positive, which could also explain her sx. Will treat and send for cx. 2. Back pain: Had surgery not that long ago, and states she fell last night and broke her bones. Per friend, Dr. Woodard didn't check lumbar spine xray in office today, so will go ahead and check. Will hold percocet as she doesn't appear to have been taking it, and use tramadol instead for pain. 3. Hyponatremia--will hydrate 4. Hypokalemia--has received some K+ PO while here, so will continue to replace 5. Dehydration 6. Hypertension--normally on irbesartan. Will hold for now, and BP ok. 7. DVT prophylaxis: will use sequential compression device. 06/18/16 20:24 06/18/16 20:26 06/18/16 20:46 06/18/16 21:08 06/18/16 21:13 06/19/16 09:16 1. 06/19/16 09:17 1. Mental status change: better this morning but not at baseline. CXR negative 2. UTI: cx pending. Initial blood cx with gram + rods, E.coli. Likely from urine. She is afebrile. WBC is a little more elevated today. Will change from bactrim to ceftriaxone as she has hx of tendinopathy with levaquin 3. Back pain: no complaints of pain today so will cancel LS spine xray. 4. electrolyte abnormalities: improving with hydration, K+ replacement 5. dehydration: creatinine now normal. Will buff cap IV once she is taking PO adequately. 6. hypertension: will continue to hold irbesartan. BPs ok. 7. abnormal LFTs: will follow. Not done last night so unclear if they are increasing or decreasing. No abdominal pain. 06/19/16 09:22 06/19/16 09:24 06/19/16 09:25 06/23/16 09:06 Mental status change: much improved, though still with some confusion at times. Feels getting off gabapentin has made all the difference. PT/OT recommendation is for SNF rehab. She is very much against this, and feels she has adequate help at home from her housemate. I am concerned that this isn't likely as much as she may need. She is open to home care. Will discuss with PT, OT, and discharge planning to see how she does today, and if safe to go home. UTI/urosepsis: now on ceftin. Has remained afebrile. Still with spasm. Back pain: doing fairly well, using minimal medication for pain. Hypertension: back on irbesartan and doing well. 06/23/16 09:08 06/23/16 09:14 Subjective: Continues to feel better overall. Bladder still with spasm and back hurts. Using tylenol and tramadol for pain. PT and OT recommendations are for SNF rehab. She is adamant against this. Has a housemate who she feels she can rely on. Is open to home care. Objective: Vital Signs Temp Pulse Resp BP Pulse Ox 36.6 C 58 L 12 128/75 H 94 06/23/16 07:33 06/23/16 07:33 06/23/16 07:33 06/23/16 08:44 06/23/16 07:33 Laboratory Results 06/21/16 04:20 06/23/16 04:39 06/22/16 06/23/16 06/24/16 05:59 05:59 05:59 Intake Total 500 300 Output Total 200 300 Balance 300 0 PT 17.2 SEC (12.0-15.0) H 06/18/16 16:30 INR 1.41 (0.83-1.16) H 06/18/16 16:30 General: sitting up in bed, awake, alert Lungs: clear Cardiovascular: RRR without murmur Abdomen: +bowel sounds, soft, NT Extremities: no edema ICD10 Worksheet Patient Problems: Problems Problem Status Onset Altered mental status Acute Hypochloremia Acute Hypokalemia Acute Hyponatremia Acute Renal insufficiency Acute Hypochloremia Acute Hyponatremia Acute Spinal stenosis Acute Urinary tract infection Acute
--- NOTE | 2016-06-23 12:39 | PDIAF ---
- Diagnosis Code Status: Full Code - Medication Management Discharge Medications: Medications to Continue on Transfer Acetaminophen [Tylenol 325mg (*)] 325 - 650 mg PO Q4HRS PRN #0 tab 05/10/16 [ Last Taken Unknown] Atorvastatin Calcium [Lipitor 10 mg (*)] 10 mg PO DAILY #0 tab 05/10/16 [Last Taken Unknown] Cholecalciferol Vit D3 [Vitamin D3 (*)] 2,000 units PO DAILY #0 tab 05/10/16 [ Last Taken Unknown] Diazepam [Valium 5 MG (*)] 5 mg PO Q8 PRN #30 tab 05/10/16 [Last Taken Unknown] FLUoxetine [Prozac 20 MG (*)] 20 mg PO DAILY #0 cap 05/10/16 [Last Taken Unknown ] Irbesartan [Avapro 150 mg (*)] 150 mg PO DAILY #0 tab 05/10/16 [Last Taken Unknown] Tramadol HCl 50 mg PO Q4H PRN 06/18/16 [Last Taken Unknown] Cefuroxime Axetil [Ceftin (*)] 500 mg PO BID #0 tab 06/23/16 [Last Taken Unknown ] Discharge Medications: Refer to the Discharge Home Medication list for PRN reason. - Orders Services needed: Home Care, Registered Nurse, Physical Therapy, Occupational Therapy Home Care Face to Face: I certify that this patient was under my care and that I had the required [id number] encounter meeting the encounter requirements on the discharge day. My findings support the fact that the patient is homebound as defined in CMS Chapter 7 Medicare Benefits Manual 30.1.1, The condition of the patient is such that there exists a normal inability to leave home and consequently, leaving home would require a considerable and taxing effort. - Follow Up Care Current Providers and Referrals: Lilian Sanodval MD [Primary Care Provider] -
--- NOTE | 2016-06-29 14:29 | GDS ---
[f rep st] DISCHARGE SUMMARY DISCHARGE DIAGNOSES: 1. Mental status change. 2. Urosepsis. 3. Hyponatremia. 4. Hypokalemia. HOSPITAL COURSE: The patient is a 66-year-old woman who underwent lumbar laminectomy/fusion on 05/08/2016 and had been doing well at home. One week prior to admission, she was noted to be somewhat confused, and was subsequently admitted after increasing confusion at home and inability to care for herself. She was found to have a positive urinalysis in the emergency department and was placed on Bactrim. Preliminary blood cultures came back positive for E coli, and she was switched to ceftriaxone. She was also noted to be dehydrated with a creatinine of 1.3, and both sodium and potassium were low. She was hydrated and her electrolytes were replaced. Chest x-ray was negative. Blood and urine cultures subsequently showed E coli, resistant to Bactrim, ampicillin, gentamicin, and Levaquin but sensitive to ceftriaxone. Her mental status improved significantly with antibiotic treatment and treatment of her electrolyte abnormalities. She was switched to oral Ceftin prior to discharge, and continued to do well. She was assessed by PT, OT for safety to return home given her recent surgery, ongoing back pain, and mental status changes. By the time of discharge, she was judged safe to return home with home health followup. MEDICATIONS ON DISCHARGE: Cefuroxime 500 mg b.i.d. for a total of 7 days, Tylenol, atorvastatin 10 mg daily, vitamin D, diazepam 5 mg every 8 hours as needed, fluoxetine 20 mg daily, irbesartan 150 mg daily, tramadol 50 mg every 4 hours as needed for pain. Medications discontinued during her hospital stay included gabapentin because of possible relationship to mental status changes and oxycodone. FOLLOWUP: The patient will follow up with Lilian Sandoval MD, on discharge. /[id number]/MODL MTDD
== END 2016-06-23 15:51 | disposition home health service (06) | DRG 689 ==
LOC: OBSVTOIN 20:27 → F3E 21:07
PROVIDERS: ADMIT Internal Medicine; ATTEND Internal Medicine
DX: N39.0 Urinary tract infection, site not specified (principal); B96.20 Unspecified Escherichia coli [E. coli] as the cause of diseases classified elsewhere; R78.81 Bacteremia; G93.41 Metabolic encephalopathy; I10 Essential (primary) hypertension; Z98.1 Arthrodesis status; E87.1 Hypo-osmolality and hyponatremia; E87.6 Hypokalemia; E86.0 Dehydration
CPT/HCPCS: 80305; 92507-GN; 92523-GN; 97116-GP; 97162-GP; 97165-GO; 97530-GP; 97535-GO; G0480; G8978-GP-CK; G8979-GP-CI; G8987-GO-CJ; G8988-GO-CI; G8989-GO-CI; G9165-GN-CJ; G9166-GN-CI; J0696

== ENCOUNTER → 2016-09-01 | Outpatient (CLI) | payer OTHER | LOC: FIMAGING 13:40 | PROVIDERS: ATTEND Internal Medicine | DX: Z12.31 Encounter for screening mammogram for malignant neoplasm of breast (principal) | CPT/HCPCS: G0202 ==

== ENCOUNTER 2017-11-27 13:34 | Inpatient (IN) | payer OTHER ==
--- NOTE | 2017-11-27 17:09 | GHP ---
POST ADMISSION PHYSICIAN EVALUATION AND REHABILITATION TREATMENT PLAN DATE OF ADMISSION: 11/27/2017 DATE OF EVALUATION: 11/27/2017 TIME OF EVALUATION: 1515. REFERRING FACILITY: [facility]. REFERRING PHYSICIAN: Cody Leon MD IMPAIRMENT GROUP: [id number]. DATE OF ONSET: 11/24/2017. CONSULTING PHYSICIANS: There were none. REHABILITATION DIAGNOSIS: Debility with leg weakness, status post lumbar spinal fusion. ETIOLOGIC DIAGNOSIS: Other nontraumatic spinal cord dysfunction. DATE OF SURGERY: 11/25/2017. HISTORY OF PRESENT ILLNESS: This patient was admitted to [facility] on 01/2018, for an elective lumbar laminectomy, L2-3, and decompression with removal of instrumentation and exploration of fusion mass due to spinal stenosis of the lumbar region with neurogenic claudication. Her postoperative course was complicated by epidural bleed and hematoma resulting in spinal stenosis and neurologic impairment. She returned to the OR and had evacuation of the hematoma and more extensive hardware removal at L1 to L3. She had developed neurologic deficits to the left lower extremity below the knee including dullness to sensation and weakness at the ankle and foot. She was unable to stand and ambulate on her own, and so she was discharged to inpatient rehabilitation. STUDIES AND LABS IN THE HOSPITAL: I do not have a comprehensive list. She had multiple imaging of her lumbar spine. On 11/25/2017, her hemoglobin was 11.3 and her hematocrit was 32.2. There was mention made in some of the notes of renal insufficiency, but I do not have renal labs. PRECAUTIONS: She is a fall risk. She has orthopedic spinal precautions. ACTIVE COMORBIDITIES: She has the tier 3 comorbidity of hemiparesis with left lower extremity weakness. Otherwise, she has no tier 1, tier 2 or tier 3 comorbidities. PAST MEDICAL HISTORY: 1. Lumbar spinal stenosis, and previous disk herniations and compression fractures. 2. Osteoporosis. 3. Anxiety/depression. 4. Urinary tract infections. 5. Neurogenic bladder. 6. Hypertension. 7. She has had bilateral cataract surgery. PAST SURGICAL HISTORY: She has had previous lumbar spinal surgery. PRE-HOSPITAL MEDICATIONS: 1. Clonazepam. 2. Fluoxetine 20 mg q. day. 3. Irbesartan 150 mg p.o. q. day. 4. Meloxicam 15 mg p.o. q. day. 5. Vitamin D. ADMISSION MEDICATIONS: 1. Clonazepam 0.5 mg p.o. b.i.d. 2. Fluoxetine 20 mg p.o. q. day. 3. Irbesartan 150 mg p.o. q. day. 4. Methocarbamol 750 mg p.o. q.8 hours p.r.n. 5. Oxycodone/acetaminophen 1-2 tablets p.o. q.4 hours p.r.n. ALLERGIES: She has had an intolerance to gabapentin with severe dizziness. PSYCHOSOCIAL HISTORY: She is . Her [place] on [place] in [place] and is currently unable to obtain a visa. She is a nonsmoker. She has worked a variety of jobs at [employer] and is retired. Her brother is visiting from out of town to provide assistance. FAMILY HISTORY: Noncontributory. REVIEW OF SYSTEMS: She reports constipation. She has pain in the thighs which radiates at times down to her calves. She has weakness of the left lower extremity greater than the right lower extremity. She has had difficulty sleeping, partly because of the pain. She also has pain at her surgical site. She has a reduced appetite and has had weight loss over several years. She reports that she has esophageal motility problems and has had "a scraping of scar tissue" from 7 cm of her esophagus. Dry foods, especially meat after it has been chewed, can get stuck and she regurgitates it. Otherwise, a 10-point review of systems is negative. PHYSICAL EXAM: VITALS: Blood pressure is 140/88, heart rate is 84, respiratory rate is 16, oxygen saturation is 97% on room air, temperature is 36.6 degrees centigrade. Her weight is not yet recorded in the chart. GENERAL : This is a well-nourished, well-developed but thin woman, lying in bed dressed in hospital gown, cooperative and in no acute distress. HEENT: Extraocular movements are intact. Pupils are unequal, but both are reactive. Mucous membranes are moist. Dentition is in good condition. She has an uncrowded airway, Mallampati class I. NECK: Supple. HEART: There is a regular rate and rhythm with no murmurs, rubs, or gallops. LUNGS: Clear to auscultation bilaterally. ABDOMEN: Soft, nontender, nondistended with normoactive bowel sounds and no hepatosplenomegaly. EXTREMITIES: There is no cyanosis, clubbing, or edema. Radial and dorsalis pedis pulses are 2+ bilaterally. NEUROLOGIC: She is alert and oriented x3. Cranial nerves 2-12 are grossly intact. She has normal motor strength in the upper extremities. In the lower extremities, she has marked weakness. In the left lower extremity , she has minimal plantar flexion or dorsiflexion of the foot. She has 2/6 strength at the hamstrings. The right lower extremity is somewhat stronger than the left lower extremity. Sensation is present but reduced to light touch on the left lower extremity. CURRENT LEVEL OF FUNCTION: Per the preadmission screen, she was on a regular diet and had standby assist for eating. Grooming required minimal assist. Dressing required minimal assist to don her brace, and lower extremity dressing required total assist. Toileting required assistance. She required straight catheterization for bladder emptying. She was continent of bowel. Bed mobility required moderate assist for log rolling to sit and voice cuing for technique. She transferred with moderate assistance of 2. Her knees buckled. She required cues to maintain posture and to use her upper extremities. Equipment used was a lumbar spine orthosis and a Vielka Stedy. Seated balance required minimal assist. She had excessive forward and backward lean. Endurance was fair. She was able to take 2-3 side steps with her knees buckling. She was considered a fall risk, and per therapies hip flexors bilaterally were 2/5 in strength. Knee extension was 3+/5 in strength. Right ankle dorsiflexion and plantar flexion were 4/5, left ankle dorsiflexion was 1/5 , and plantar flexion was 2/5. IMPRESSION: This is a 67-year-old woman with a history of lumbar spine degeneration including osteoporotic compression fractures and disk herniation with lumbar surgery years previously. She had a fall while at her 's horse farm in [place] and subsequently had considerably increased pain. She has a history of likely neurogenic bladder going back as far as 2014 for which she self-catheterizes. Due to the fall and the pain, she had neurosurgical consultation and then underwent surgery with L3-L4 hardware removal and laminectomy. Unfortunately, she suffered a hematoma distal to L3-L4 following her surgery and needed repeat surgery for evacuation of the hematoma and further hardware removal at level L1 to L3. Following the hematoma and surgery , she had much increased leg weakness and was unable to ambulate. She was otherwise medically stable and was discharged to inpatient rehabilitation. She is an excellent candidate for rehabilitation. She will benefit from physical therapy and occupational therapy regarding mobility and activities of daily living, and from nursing care regarding neurogenic bladder, constipation, wound healing and medications. She needs the care of a physician for pain and symptom management, medications to address bladder emptying and hypertension, risk for infection, and risk for deep venous thrombosis. Her goal is to complete a rehabilitation stay and then return home with family and supportive services. For a safe discharge, it is anticipated that she will have independence for eating; modified independence for grooming, dressing, bed mobility, and transfers with or without a sliding board. She will have independence with wheelchair mobility. She will ambulate for short distances using a front-wheeled walker. She will have modified independence for use of a straight catheter. She will likely continue to require assistance for laundry, shopping, and household management. She will have therapy with Physical Therapy and Occupational Therapy for 90 minutes per day for each discipline on 5-7 days of the week. Her expected duration of stay is 10-14 days. It is anticipated that upon discharge she will continue to benefit from home health services including physical therapy. PLAN: 1. Debility with bilateral lower extremity weakness, left greater than right, following L3-L4 laminectomy, hematoma causing spinal cord compression, repeat surgery for evacuation of hematoma and further removal of old hardware from L1 to L3. PT and OT to optimize mobility and activities of daily living. 2. Neurogenic bladder. It is hoped that following her surgery she may have return of neurologic control of bladder emptying. She will have regular bladder scanning, and the rehabilitation bladder program, and Nursing will assist in catheterization as needed. Will have a trial of bethanechol starting at 5 mg 4 times daily. Consider titrating if there is no effect at 5 mg. 3. Weight loss with possible esophageal motility issues. She will have consultation with a dietitian regarding optimizing her nutrition with more manageable diet textures. 4. Hypertension. Continue irbesartan and adjust or add antihypertensives as needed. 5. Neuropathic pain and difficulty sleeping. Trial of nortriptyline 25 mg at h.s. Unfortunately, she has been intolerant of gabapentin in the past. 6. Constipation. I have initiated a bowel protocol with senna 1 tablet b.i.d. , polyethylene glycol 17 g q. day, and a bisacodyl suppository as needed. 7. History of depression and anxiety. Continue fluoxetine and clonazepam. 8. Postoperative anemia and possible history of renal insufficiency. I have ordered a CBC and a basic metabolic profile for the morning on 11/28/2017. 9. Prophylaxis. She has greatly reduced mobility. I have initiated enoxaparin 40 mg subcutaneous q. day at a prophylactic dose. She is likely not at increased risk for GI bleeding, so I have not placed her on a proton pump inhibitor. 10. Followup. She will see Surgeon, Dr. Cody Leon, most likely after her discharge from inpatient rehabilitation. It is likely that her chris can be removed at approximately 2 weeks post surgery. This will be discussed further with the surgeon if she is to remain in inpatient rehabilitation beyond that time. /[id number]/MODL MTDD
[2017-11-27] MEDS: METHOCARBAMOL 750 MG TAB PO PRN (18:15)
[2017-11-27] MEDS: BETHANECHOL 5 MG TAB PO SCH ×2 (18:15→19:40)
[2017-11-27] MEDS: OXYCODONE/APAP 5/325 TAB PO PRN (19:48)
[2017-11-27] MEDS: NORTRIPTYLINE HCL 25 MG CAP PO SCH (21:02)
[2017-11-27] MEDS: clonazePAM 0.5 MG TAB PO SCH (21:02)
[2017-11-27] MEDS: SENNOSIDES 1 TAB PO SCH (21:02)
[2017-11-27] MEDS: BISACODYL 10 MG SUPP PR PRN (21:37)
[2017-11-28] MEDS: BETHANECHOL 5 MG TAB PO SCH ×4 (06:06→21:40)
[2017-11-28] MEDS: OXYCODONE/APAP 5/325 TAB PO PRN ×2 (07:40→22:52)
[2017-11-28 07:50] LABS: PLATELET COUNT 94 10^3/uL (150-400)
[2017-11-28] MEDS: POLYETHYLENE GLYCOL 3350 17 GM PKT PO SCH (09:37)
[2017-11-28] MEDS: IRBESARTAN 150 MG TAB PO SCH (09:38)
[2017-11-28] MEDS: FLUoxetine 20 MG CAP PO SCH (09:39)
[2017-11-28] MEDS: SENNOSIDES 1 TAB PO SCH ×2 (09:39→21:41)
[2017-11-28] MEDS: ENOXAPARIN 40 MG/0.4 ML SYR SC SCH (09:39)
[2017-11-28] MEDS: clonazePAM 0.5 MG TAB PO SCH ×2 (09:43→21:41)
--- NOTE | 2017-11-28 14:10 | SOAPPROG ---
SOAP Progress Note Assessment/Plan: Assessment/Plan: Ms. Randle is a 67 y/o female s/p L3/L4 lamintectomy and harware removal. Had a post-operative hematoma contributing to weakness. Pt with a history of neurogenic bladder prior. 1. Debility with bilateral lower extremity weakness, left greater than right, following L3-L4 laminectomy, hematoma causing spinal cord compression, repeat surgery for evacuation of hematoma and further removal of old hardware from L1 to L3. * PT and OT to optimize mobility and activities of daily living. 2. Neurogenic bladder. It is hoped that following her surgery she may have return of neurologic control of bladder emptying. She will have regular bladder scanning, and the rehabilitation bladder program and Nursing will assist in catheterization as needed. * Will have a trial of bethanechol starting at 5 mg 4 times daily. Consider titrating if there is no effect at 5 mg. * RN to teach catheterization from a seated position 3. Weight loss with possible esophageal motility issues. She will have consultation with a dietitian regarding optimizing her nutrition with more manageable diet textures. 4. Hypertension. * Continue irbesartan and adjust or add antihypertensives as needed. 5. Neuropathic pain and difficulty sleeping. * Trial of nortriptyline 25 mg at h.s. * she has been intolerant of gabapentin in the past. * Not sure if PCP has ever considered SNRI for anxiety and pain management? 6. Constipation. * bowel protocol with senna 1 tablet b.i.d., polyethylene glycol 17 g q. day, and a bisacodyl suppository as needed. 7. History of depression and anxiety. * Continue fluoxetine and clonazepam. 8. Postoperative anemia - Significant drop - (about a 5 point drop) No evidence of bleeding. Will recheck in the am to assure stability 9. History of renal insufficiency- Stable/improved 10. Hypercalcemia - Resolved 11. Hyponatremia - Slightly low at 134 - improved since last BMP (was 131) 12. Prophylaxis. She has greatly reduced mobility. I have initiated enoxaparin 40 mg subcutaneous q. day at a prophylactic dose. She is likely not at increased risk for GI bleeding, so I have not placed her on a proton pump inhibitor. Followup. She will see Surgeon, Dr. Cody Leon, most likely after her discharge from inpatient rehabilitation. It is likely that her chris can be removed at approximately 2 weeks post surgery. This will be discussed further with the surgeon if she is to remain in inpatient rehabilitation beyond that time. 11/28/17 14:12 Subjective: Feeling Ok today - continues to have neuropathic pain but reports did sleep better last night with the addition of the nortryptiline. Not having any abdominal pain, no SOB. Good appetite Objective: Vital Signs Temp Pulse Resp BP Pulse Ox 98.4 F 105 H 16 123/84 H 96 11/28/17 09:30 11/28/17 09:30 11/28/17 09:30 11/28/17 09:38 11/28/17 09:30 Laboratory Results 11/28/17 06:20 11/28/17 06:20 11/27/17 11/28/17 11/29/17 05:59 05:59 05:59 Intake Total 250 100 Output Total 1130 600 Balance -880 -500 Physical Exam - Physical Exam General Appearance: alert, no apparent distress EENT: PERRL/EOMI Respiratory: lungs clear Cardiac/Chest: regular rate, rhythm Abdomen: non-tender, soft Skin: normal color, other (mild swelling of BLE) Neuro/Psych: alert, normal mood/affect ICD10 Worksheet Patient Problems: Problems Problem Status Onset Altered mental status Acute Hypochloremia Acute Hypochloremia Acute Hypokalemia Acute Hyponatremia Acute Hyponatremia Acute Renal insufficiency Acute Spinal stenosis Acute Urinary tract infection Acute
[2017-11-28] MEDS: NORTRIPTYLINE HCL 25 MG CAP PO SCH (21:41)
[2017-11-29] MEDS: BETHANECHOL 5 MG TAB PO SCH ×4 (05:34→20:25)
[2017-11-29] MEDS: OXYCODONE/APAP 5/325 TAB PO PRN ×2 (07:17→16:11)
[2017-11-29] MEDS: POLYETHYLENE GLYCOL 3350 17 GM PKT PO SCH (09:10)
[2017-11-29] MEDS: IRBESARTAN 150 MG TAB PO SCH (09:11)
[2017-11-29] MEDS: clonazePAM 0.5 MG TAB PO SCH ×2 (09:11→20:25)
[2017-11-29] MEDS: SENNOSIDES 1 TAB PO SCH ×2 (09:11→20:24)
[2017-11-29] MEDS: FLUoxetine 20 MG CAP PO SCH (09:11)
[2017-11-29] MEDS: ENOXAPARIN 40 MG/0.4 ML SYR SC SCH (09:11)
--- NOTE | 2017-11-29 11:31 | SOAPPROG ---
SOAP Progress Note Assessment/Plan: Assessment/Plan: Ms. Randle is a 67 y/o female s/p L3/L4 lamintectomy and harware removal. Had a post-operative hematoma contributing to weakness. Pt with a history of neurogenic bladder prior. 1. Debility with bilateral lower extremity weakness, left greater than right, following L3-L4 laminectomy, hematoma causing spinal cord compression, repeat surgery for evacuation of hematoma and further removal of old hardware from L1 to L3. * PT and OT to optimize mobility and activities of daily living. 2. Neurogenic bladder. It is hoped that following her surgery she may have return of neurologic control of bladder emptying. She will have regular bladder scanning, and the rehabilitation bladder program and Nursing will assist in catheterization as needed. * Will have a trial of bethanechol starting at 5 mg 4 times daily. Consider titrating if there is no effect at 5 mg. * RN to teach catheterization from a seated position 3. Weight loss with possible esophageal motility issues. She will have consultation with a dietitian regarding optimizing her nutrition with more manageable diet textures. 4. Hypertension. * Continue irbesartan and adjust or add antihypertensives as needed. 5. Neuropathic pain and difficulty sleeping. * Trial of nortriptyline 25 mg at h.s. * she has been intolerant of gabapentin in the past. * Not sure if PCP has ever considered SNRI for anxiety and pain management? 6. Constipation. * bowel protocol with senna 1 tablet b.i.d., polyethylene glycol 17 g q. day, and a bisacodyl suppository as needed. * Will add a dose of relistor today since pt without bm since and likely 2/2 decreased mobility in combo with opioids 7. History of depression and anxiety. * Continue fluoxetine and clonazepam. 8. Postoperative anemia - Significant drop - (about a 5 point drop) - Recheck on 11/29- Improved /stable 9. History of renal insufficiency- Stable/improved 10. Hypercalcemia - Resolved 11. Hyponatremia - Slightly low at 134 - improved since last BMP (was 131) 12. Prophylaxis. She has greatly reduced mobility- Continue enoxaparin 40 mg subcutaneous q. day at a prophylactic dose. She is likely not at increased risk for GI bleeding, so not placed her on a proton pump inhibitor. Followup. She will see Surgeon, Dr. Cody Edward, most likely after her discharge from inpatient rehabilitation. It is likely that her chris can be removed at approximately 2 weeks post surgery. This will be discussed further with the surgeon if she is to remain in inpatient rehabilitation beyond that time. 11/29/17 11:27 Subjective: Feeling a little tired today - no new pain but continues to have pain in her low back as usual. NO bm for about 4 days. Feeling constipated. Overall no new SOB, no cp. Objective: Vital Signs Temp Pulse Resp BP Pulse Ox 97.8 F 83 16 129/89 H 92 11/29/17 06:22 11/29/17 06:22 11/29/17 06:22 11/29/17 09:11 11/29/17 06:22 Laboratory Results 11/29/17 06:15 11/28/17 06:20 11/28/17 11/29/17 11/30/17 05:59 05:59 05:59 Intake Total 250 640 480 Output Total 1130 1625 Balance -880 -986 480 Physical Exam - Physical Exam General Appearance: alert, other (Mild distress) Respiratory: lungs clear, normal breath sounds Cardiac/Chest: regular rate, rhythm Abdomen: non-tender, soft Skin: warm/dry Neuro/Psych: alert ICD10 Worksheet Patient Problems: Problems Problem Status Onset Altered mental status Acute Hypochloremia Acute Hypochloremia Acute Hypokalemia Acute Hyponatremia Acute Hyponatremia Acute Renal insufficiency Acute Spinal stenosis Acute Urinary tract infection Acute
[2017-11-29] MEDS ORDERED: METHYLNALTREXONE BROMIDE 12 MG/0.6 ML INJ SC ONE (12:25)
[2017-11-29] MEDS: NORTRIPTYLINE HCL 25 MG CAP PO SCH (20:24)
[2017-11-30] MEDS: OXYCODONE/APAP 5/325 TAB PO PRN ×2 (03:30→08:21)
[2017-11-30] MEDS: BETHANECHOL 5 MG TAB PO SCH (05:42)
[2017-11-30] MEDS: ENOXAPARIN 40 MG/0.4 ML SYR SC SCH (08:12)
[2017-11-30] MEDS: POLYETHYLENE GLYCOL 3350 17 GM PKT PO SCH (08:13)
[2017-11-30] MEDS: clonazePAM 0.5 MG TAB PO SCH ×2 (08:13→21:13)
[2017-11-30] MEDS: IRBESARTAN 150 MG TAB PO SCH (08:13)
[2017-11-30] MEDS: FLUoxetine 20 MG CAP PO SCH (08:13)
[2017-11-30] MEDS: SENNOSIDES 1 TAB PO SCH ×2 (08:14→21:13)
--- NOTE | 2017-11-30 09:22 | SOAPPROG ---
SOAP Progress Note Assessment/Plan: Assessment: Debility with bilateral lower extremity weakness, left greater than right, following L3-L4 laminectomy, hematoma causing spinal cord compression, repeat surgery for evacuation of hematoma and further removal of old hardware from L1 to L3. * Initial functional independence measure is 61 on 11/30/2017. Minimal assist for bed mobility to help with her legs. Transfers require maximal assist. She has self-propelled wheelchair 150 ft. Grooming and hygiene is done from the wheelchair with modified independence. Upper body dressing requires setup and cues. Lower body dressing requires total to max if she tries to do it sitting up S she does better if supine, minimal assist. Shower required setup and supervision. Bath transfer required maximal assist. * Continue PT and OT to optimize mobility and activities of daily living. Neurogenic bladder. No response to bethanechol, and may be causing urinary frequency at night. * Discontinue bethanechol 11/30/2017. * Continue rehabilitation bladder program. * Nursing instructing patient on how to self cath while seated. Neuropathic pain and difficulty sleeping. * Increased nortriptyline from 25 mg at HS to 50 mg at HS on 11/30/2017. * Discontinue oxycodone/acetaminophen combination. Initiate acetaminophen 1000 mg q.8 hours and oxycodone 5-15 mg every 3 hr as needed, starting 11/30/2017. Consider initiation of long-acting opiate. Postoperative anemia and possible history of renal insufficiency. * Anemia progressed since hospitalization, with hemoglobin decreased from 11.2 to-8.9; subsequent improvement to 9.4 on 11/29/2017. * No renal insufficiency but has mild hyponatremia on labs 11/29/2017. Constipation. Refractory to current laxatives, physical x2, enema x1, and a dose of methylnaltrexone. * Increase senna from 1 tablet twice daily to 2 tablets twice daily starting . * Continue polyethylene glycol q.day, continue physical suppository p.r.n.. * Ordered magnesium citrate to be used on a p.r.n. basis. Osteoporosis. No vitamin-D deficiency. * She reports having used a bisphosphonate in the past. There is mention in hospital paperwork of history of hypercalcemia. Vitamin-D level at 93 on labs from 11/28/2017 is high enough to be concerned about toxicity. * Check comprehensive metabolic profile in several days to follow up on history of hypercalcemia and on mild hyponatremia. Hypertension. Continue irbesartan and adjust or add antihypertensives as needed. History of depression and anxiety. Continue fluoxetine and clonazepam. * Consider changing from fluoxetine to to duloxetine for neuropathic pain effect. Weight loss with possible esophageal motility issues. She will have consultation with a dietitian regarding optimizing her nutrition with more manageable diet textures. Prophylaxis. She has greatly reduced mobility. I have initiated enoxaparin 40 mg subcutaneous q. day at a prophylactic dose. She is likely not at increased risk for GI bleeding, so I have not placed her on a proton pump inhibitor. DISPOSITION: Lives in a 1 story home with 3 steps to enter. Brother, who is retired, is visiting and can stay indefinitely. She has a roommate who can help as well. Initial goal is safe transfers and community mobility with wheelchair. Tentative discharge date set for 12/16/2017. FOLLOW-UP: D/W Surgeon, Dr. Cody Leon. Can see for follow-up after her discharge from inpatient rehabilitation. Faulkner can be removed at approximately 2 weeks post surgery. He may come see her on the rehab unit.. 11/30/17 11:32 Subjective: Complains of pain bilateral buttocks and left inguinal region. Takes a while for her to find a comfortable position for sleep. She is not sure if nortriptyline has helped. She has urinary frequency at night every hour half and it is complicated process for her to use the Vielka Stedy to transfer to the bedside commode. She then finds the bedside commode very uncomfortable and is unable to sit on it for very long. She has not yet moved her bowels since admission. Otherwise without complaints. No cough or dyspnea, no fevers or chills. Objective: Vital Signs Temp Pulse Resp BP Pulse Ox 36.9 C 95 16 158/93 H 95 11/30/17 06:22 11/30/17 06:22 11/30/17 06:22 11/30/17 08:13 11/30/17 06:22 Laboratory Results 11/29/17 06:15 11/28/17 06:20 11/29/17 11/30/17 12/01/17 05:59 05:59 05:59 Intake Total 640 1270 Output Total 1628 1303 Balance -985 -33 - Time Spent With Patient Time Spent With Patient: Greater that 35 minutes floor time today, including more than 50% of time in coordination of care during staffing, and counseling patient. Physical Exam - Physical Exam General Appearance: WD/WN, alert, no apparent distress Respiratory: normal breath sounds, No crackles, No rhonchi, No wheezing Cardiac/Chest: regular rate, rhythm, No edema, No diastolic murmur, No systolic murmur Skin: normal color, warm/dry Neuro/Psych: alert, normal mood/affect, oriented x 3, motor weakness (Bilateral lower extremities left greater than right) ICD10 Worksheet Patient Problems: Problems Problem Status Onset Altered mental status Acute Hypochloremia Acute Hypochloremia Acute Hypokalemia Acute Hyponatremia Acute Hyponatremia Acute Renal insufficiency Acute Spinal stenosis Acute Urinary tract infection Acute
[2017-11-30] MEDS ORDERED: MAGNESIUM CITRATE 300 ML BOTTLE PO PRN (09:40)
[2017-11-30] MEDS: oxyCODONE IR 5 MG TAB PO SCH ×4 (11:46→21:11)
[2017-11-30] MEDS: ACETAMINOPHEN 500 MG TAB PO SCH ×2 (15:12→21:11)
[2017-11-30] MEDS: NORTRIPTYLINE HCL 25 MG CAP PO SCH (21:12)
[2017-12-01] MEDS: oxyCODONE IR 5 MG TAB PO SCH ×3 (03:05→06:02)
[2017-12-01] MEDS: BISACODYL 10 MG SUPP PR PRN (05:56)
[2017-12-01] MEDS: ACETAMINOPHEN 500 MG TAB PO SCH ×3 (06:02→20:53)
--- NOTE | 2017-12-01 08:18 | PDOREHIP ---
Admission [facility] - Admission - 3 Day Assessment Period Admission Date/Day 1: 11/27/17 Day 2: 11/28/17 Day 3: 11/29/17 - Active Diagnoses Comorbidities and Co-existing Conditions at Admission: 23422. None of the Above - Skin Conditions Unhealed Pressure Ulcer (1 or more/Stage 1 or >)-Admission: 0. No
[2017-12-01] MEDS: clonazePAM 0.5 MG TAB PO SCH ×2 (08:37→20:54)
[2017-12-01] MEDS: IRBESARTAN 150 MG TAB PO SCH (08:37)
[2017-12-01] MEDS: ENOXAPARIN 40 MG/0.4 ML SYR SC SCH (08:38)
[2017-12-01] MEDS: FLUoxetine 20 MG CAP PO SCH (08:38)
[2017-12-01] MEDS: oxyCODONE IR 5 MG TAB PO PRN ×2 (08:38→17:58)
[2017-12-01] MEDS: POLYETHYLENE GLYCOL 3350 17 GM PKT PO SCH (08:39)
[2017-12-01] MEDS: SENNOSIDES 1 TAB PO SCH ×2 (08:40→20:52)
--- NOTE | 2017-12-01 09:34 | SOAPPROG ---
BC Progress Note Assessment/Plan: 67-year-old woman status post evacuation of lumbar hematoma and compression of cauda equina following a L3-L4 laminectomy, bilateral lower extremity weakness left greater than right, lower motor neuron bowel and bladder. MRI 11/25/2017 shows stenosis at the level of L2 and L3 with the conus ending at L1. Today's update: Patient with lower motor neuron bowel and bladder, likely will need manual disimpaction for bowel management. She has had debatable results with suppositories. Continue bowel medications, acknowledging that manual evacuation will likely be necessary both now and after discharge if she is experiencing lower motor neuron bowel. Regarding her bladder management, and she did do self catheterization prior to this most recent surgery. She is no longer physically capable of doing that in the same way, we are placing a Shelton catheter which will likely remain in place until she is either able to do self catheterization again or she can discharge with this and follow up with a urologist. Additionally, her surgeon is reportedly aware of her wound, some discharged today on examination, continue dry dressings with Steri-Strips in place for the time being. Changing her scheduled oxycodone to as needed. She also notes some difficulty with swallowing, observed to cough with thin liquids. Requesting speech therapy evaluation. A total of 40 min was spent on the floor in the care of the patient, the majority of which was spent in counseling coordination of care regarding cauda equina syndrome and complications. She would benefit from working with physiatry after discharge. Additional issues reviewed without change today include neuropathic pain, postoperative anemia and history of renal insufficiency, osteoporosis, hypertension, depression and anxiety, weight loss with possible esophageal motility issues. 12/01/17 09:21 Subjective: Chief complaint: Neurogenic bowel and bladder No acute events overnight. Patient denies any new shortness of breath or chest pain, no new numbness, tingling, or weakness. She endorses that she did self catheterization before her current episode of care but because of reduced mobility has not been able to do so here. She has had elevated postvoid residuals and sometimes requiring catheterization. She has also had some constipation and has not been responsive to bowel medications as expected. Reviewed her imaging, MRI from 11/25/2017 showed the conus ended at L1 and she had laminectomy and hematoma at L2 and L3 with spinal canal stenosis. Surgical wound had chris removed early per report from Dr. Galaviz, she denies pain but there is some discharge. She also would like her pain medications brought on an as-needed basis rather than scheduled throughout the night. She endorses a history of dysphagia preceding this episode of care Objective: Vital Signs Temp Pulse Resp BP Pulse Ox 36.6 C 88 16 124/91 H 93 12/01/17 06:10 12/01/17 06:10 12/01/17 06:10 12/01/17 06:10 12/01/17 06:10 Laboratory Results 11/29/17 06:15 11/28/17 06:20 11/30/17 12/01/17 12/02/17 05:59 05:59 05:59 Intake Total 1270 475 Output Total 1303 400 Balance -33 475 -400 Physical Exam - Physical Exam General Appearance: WD/WN, alert, no apparent distress EENT: No scleral icterus (R), No scleral icterus (L) Respiratory: other (Observed cough with thin liquids when she was not on an optimum swallowing position), No respiratory distress, No accessory muscle use Cardiac/Chest: normal peripheral pulses, regular rate, rhythm, No edema Skin: normal color, warm/dry, other (Surgical wound in the spine was taken down with Steri-Strips in place, no chris. There was some serosanguineous discharge from the wound, no purulence, no surrounding erythema or warmth. It was not painful.), No cyanosis, No diaphoresis Extremities: non-tender, No pedal edema, No calf tenderness, No swelling Neuro/Psych: alert, normal mood/affect, other (Left leg hip flexor was 3/5, 4/5 on the right.) ICD10 Worksheet Patient Problems: Problems Problem Status Onset Altered mental status Acute Hypochloremia Acute Hypochloremia Acute Hypokalemia Acute Hyponatremia Acute Hyponatremia Acute Renal insufficiency Acute Spinal stenosis Acute Urinary tract infection Acute
[2017-12-01] MEDS ORDERED: ONDANSETRON DISINTEGRATING 4 MG TAB PO PRN (12:33)
[2017-12-01] MEDS: NORTRIPTYLINE HCL 25 MG CAP PO SCH (20:53)
[2017-12-02] MEDS: oxyCODONE IR 5 MG TAB PO PRN ×3 (04:44→12:28)
[2017-12-02] MEDS: ACETAMINOPHEN 500 MG TAB PO SCH ×3 (06:22→21:25)
[2017-12-02] MEDS: BISACODYL 10 MG SUPP PR SCH (06:23)
[2017-12-02] MEDS: METHOCARBAMOL 750 MG TAB PO PRN (06:31)
[2017-12-02 08:12] LABS: PLATELET COUNT 133 10^3/uL (150-400)
[2017-12-02] MEDS: clonazePAM 0.5 MG TAB PO SCH ×2 (08:27→20:29)
[2017-12-02] MEDS: FLUoxetine 20 MG CAP PO SCH (08:28)
[2017-12-02] MEDS: ENOXAPARIN 40 MG/0.4 ML SYR SC SCH (08:29)
[2017-12-02] MEDS: SENNOSIDES 1 TAB PO SCH ×2 (08:29→20:27)
[2017-12-02] MEDS: POLYETHYLENE GLYCOL 3350 17 GM PKT PO SCH (08:29)
[2017-12-02] MEDS: IRBESARTAN 150 MG TAB PO SCH (08:31)
[2017-12-02] MEDS ORDERED: MAGNESIUM CITRATE 300 ML BOTTLE PO ONE (12:24)
--- NOTE | 2017-12-02 15:20 | SOAPPROG ---
SOAP Progress Note Assessment/Plan: Assessment: 67-year-old woman status post evacuation of lumbar hematoma and compression of cauda equina following a L3-L4 laminectomy, bilateral lower extremity weakness left greater than right, lower motor neuron bowel and bladder. MRI 11/25/2017 shows stenosis at the level of L2 and L3 with the conus ending at L1. Debility with bilateral lower extremity weakness, left greater than right, following L3-L4 laminectomy, hematoma causing spinal cord compression, repeat surgery for evacuation of hematoma and further removal of old hardware from L1 to L3. * Initial functional independence measure is 61 on 11/30/2017. Minimal assist for bed mobility to help with her legs. Transfers require maximal assist. She has self-propelled wheelchair 150 ft. Grooming and hygiene is done from the wheelchair with modified independence. Upper body dressing requires setup and cues. Lower body dressing requires total to max if she tries to do it sitting up S she does better if supine, minimal assist. Shower required setup and supervision. Bath transfer required maximal assist. * Continue PT and OT to optimize mobility and activities of daily living. Neurogenic bladder. No response to bethanechol, and may be causing urinary frequency at night. * Discontinued bethanechol 11/30/2017. * Shelton catheter placed 12/01/2017 as she is unable to self catheterization; she was accustomed to doing it it from a standing position and cannot stand currently. Neuropathic pain and difficulty sleeping. * Increased nortriptyline from 25 mg at HS to 50 mg at HS on 11/30/2017. * Discontinue oxycodone/acetaminophen combination. Initiate acetaminophen 1000 mg q.8 hours and oxycodone 5-15 mg every 3 hr as needed, starting 11/30/2017. Consider initiation of long-acting opiate. Postoperative anemia and possible history of renal insufficiency. * Anemia progressed since hospitalization, with hemoglobin decreased from 11.2 to-8.9; subsequent improvement to 9.4 on 11/29/2017. * Essentially stable with hemoglobin 9.2 on 12/02/2017. * No renal insufficiency but has mild hyponatremia on labs 11/29/2017. Wound care. Mccool inadvertently removed early. * No S/Sx infection. Minimal serous drainage. Continue to monitor daily. Hyponatremia, stable at 134 on labs 12/02/2017. Hypercalcemia, chronic. Check PTH and PO4. Constipation. Refractory to current laxatives, physical x2, enema x1, and a dose of methylnaltrexone. * Increase senna from 1 tablet twice daily to 2 tablets twice daily starting . Continue polyethylene glycol q.day, continue bisacodyl suppository p.r.n.. No response cong magnesium citrate on 12/01/2017. * Possible neurogenic bowel but nurse attempted manual disimpaction 12/02/2017 and found no stool in the vault. Repeat magnesium citrate 12/02/2017. Tolerates seated on toilet better than bedside commode. * Active bowel sounds and flatulence are encouraging signs. Osteoporosis. No vitamin-D deficiency. * She reports having used a bisphosphonate in the past. There is mention in hospital paperwork of history of hypercalcemia. Vitamin-D level at 93 on labs from 11/28/2017 is high enough to be concerned about toxicity. * Check comprehensive metabolic profile in several days to follow up on history of hypercalcemia and on mild hyponatremia. Hypertension. Continue irbesartan and adjust or add antihypertensives as needed. History of depression and anxiety. Continue fluoxetine and clonazepam. * Consider changing from fluoxetine to to duloxetine for neuropathic pain effect. Weight loss with possible esophageal motility issues. She will have consultation with a dietitian regarding optimizing her nutrition with more manageable diet textures. Prophylaxis. She has greatly reduced mobility. I have initiated enoxaparin 40 mg subcutaneous q. day at a prophylactic dose. She is likely not at increased risk for GI bleeding, so I have not placed her on a proton pump inhibitor. DISPOSITION: Lives in a 1 story home with 3 steps to enter. Brother, who is retired, is visiting and can stay indefinitely. She has a roommate who can help as well. Initial goal is safe transfers and community mobility with wheelchair. Tentative discharge date set for 12/16/2017. FOLLOW-UP: D/W Surgeon, Dr. Cody Leon. Can see for follow-up after her discharge from inpatient rehabilitation. Mccool can be removed at approximately 2 weeks post surgery. He may come see her on the rehab unit.. 12/02/17 15:05 Subjective: Continues to complain of gluteal pain bilateral. Is especially severe when she tries to sit on the bedside commode. As result she has not been able to move her bowels; she says she can't sit long enough. However nurse reports that she was able to sit 6-8 minutes approximately 30 min after receiving a suppository with no bowel movement this morning. Otherwise doing well. No fevers or chills , no cough or dyspnea. Objective: Vital Signs Temp Pulse Resp BP Pulse Ox 36.8 C 82 15 133/96 H 92 12/02/17 06:16 12/02/17 06:16 12/02/17 06:16 12/02/17 08:31 12/02/17 06:16 Laboratory Results 12/02/17 06:00 12/02/17 06:00 12/01/17 12/02/17 12/03/17 05:59 05:59 05:59 Intake Total 475 610 75 Output Total 1100 Balance 475 -490 75 Physical Exam - Physical Exam General Appearance: WD/WN, alert, no apparent distress Respiratory: normal breath sounds, No crackles, No rhonchi, No wheezing Cardiac/Chest: regular rate, rhythm, No diastolic murmur, No systolic murmur Abdomen: normal bowel sounds, non-tender, soft, No distended Skin: normal color, warm/dry, other (Incision over spine with 1 small open area approximately 1 x 2 mm and slight serous drainage. No erythema, no purulence, no swelling.) Neuro/Psych: alert, normal mood/affect, oriented x 3, motor weakness (Bilateral legs) ICD10 Worksheet Patient Problems: Problems Problem Status Onset Altered mental status Acute Hypochloremia Acute Hypochloremia Acute Hypokalemia Acute Hyponatremia Acute Hyponatremia Acute Renal insufficiency Acute Spinal stenosis Acute Urinary tract infection Acute
[2017-12-02] MEDS: NORTRIPTYLINE HCL 25 MG CAP PO SCH (20:28)
[2017-12-03] MEDS: oxyCODONE IR 5 MG TAB PO PRN ×4 (01:25→23:30)
[2017-12-03] MEDS: ACETAMINOPHEN 500 MG TAB PO SCH ×3 (05:51→21:06)
[2017-12-03] MEDS: ENOXAPARIN 40 MG/0.4 ML SYR SC SCH (08:04)
[2017-12-03] MEDS: IRBESARTAN 150 MG TAB PO SCH (08:04)
[2017-12-03] MEDS: clonazePAM 0.5 MG TAB PO SCH ×2 (08:04→21:06)
[2017-12-03] MEDS: FLUoxetine 20 MG CAP PO SCH (08:04)
[2017-12-03] MEDS: SENNOSIDES 1 TAB PO SCH ×2 (08:04→20:25)
[2017-12-03] MEDS: POLYETHYLENE GLYCOL 3350 17 GM PKT PO SCH (08:04)
--- NOTE | 2017-12-03 09:45 | SOAPPROG ---
BC Progress Note Assessment/Plan: 67-year-old woman status post evacuation of lumbar hematoma and compression of cauda equina following a L3-L4 laminectomy, bilateral lower extremity weakness left greater than right, lower motor neuron bowel and bladder. MRI 11/25/2017 shows stenosis at the level of L2 and L3 with the conus ending at L1. Today's update: Neurogenic bowel today, lower motor neuron, is the main issue. She on x-ray, she had obstipation. She has not had a good bowel movement since then. Bowel medications have resulted in incontinence of diarrhea. Plan today for repeat manual disimpaction followed by a mineral oil enema. Next step would likely be a GI consult as she may actually require intervention. She is very frustrated with the situation, rightfully so. Regarding her neuropathic pain, she had a delirium with gabapentin in the acute care setting, also avoiding pre-Galaviz. Similar pharmacology. Given that she is stable on a antidepressant, fluoxetine, for her depression, I hesitate make any changes to a SNRI or a tricyclic antidepressant. That essentially leaves typical pain relievers and opioid medications for pain control which is not ideal for neuropathic pain. She is aware of this, we will continue with nonspecific pain treatment for now. Also encouraged her to speak with lease of from case management about nonpharmacologic pain management strategies. Her wound was not observed directly today, but no discharge, wound dressing was changed yesterday. A total of 35 min was spent on the floor in the care of the patient, the majority of which was spent in counseling coordination of care regarding cauda equina syndrome and complications, specifically neurogenic bowel. She would benefit from working with physiatry after discharge. She would also benefit from follow up with GI for upper esophageal motility issues. Other issues reviewed without change today include neurogenic bladder, postoperative anemia and possible history of renal insufficiency, hyponatremia, osteoporosis, hypertension, history of anxiety, weight loss. 12/01/17 09:21 12/03/17 09:39 Subjective: Chief complaint: Lower motor neuron bowel No acute events overnight. Patient denies any new shortness of breath or chest pain, no new numbness, tingling, or weakness. She is frustrated that she has had liquid stools in the setting of obstipation related to lower motor neuron bowel. She denies any abdominal pain. No recent nausea or vomiting. She also endorses shooting type pain in her legs that she associates with"sciatica", notes that she had delirium in the acute care setting for gabapentin, not sure if she has tried pre gal but this is related medication. She is also on fluoxetine and has been for many years on a stable dose for depression. Objective: Vital Signs Temp Pulse Resp BP Pulse Ox 36.6 C 95 16 129/78 H 93 12/03/17 05:52 12/03/17 05:52 12/03/17 05:52 12/03/17 08:04 12/03/17 05:52 Laboratory Results 12/02/17 06:00 12/02/17 06:00 12/02/17 12/03/17 12/04/17 05:59 05:59 05:59 Intake Total 610 475 Output Total 1100 1400 Balance -490 -925 Physical Exam - Physical Exam General Appearance: WD/WN, alert, mild distress EENT: No scleral icterus (R), No scleral icterus (L) Respiratory: lungs clear, normal breath sounds, No respiratory distress, No accessory muscle use, No rales, No rhonchi, No wheezing Cardiac/Chest: normal peripheral pulses, regular rate, rhythm, No edema, No diastolic murmur, No systolic murmur Abdomen: soft, other (Stool palpable in the lower aspect of her abdomen, no tenderness or pain) Skin: normal color, warm/dry, other (Dressing in place over surgical wound, no breakthrough, wound dressing was changed yesterday.), No cyanosis, No diaphoresis Extremities: non-tender, No pedal edema, No calf tenderness, No swelling Neuro/Psych: alert, normal mood/affect, oriented x 3 ICD10 Worksheet Patient Problems: Problems Problem Status Onset Altered mental status Acute Hypochloremia Acute Hypochloremia Acute Hypokalemia Acute Hyponatremia Acute Hyponatremia Acute Renal insufficiency Acute Spinal stenosis Acute Urinary tract infection Acute
[2017-12-03] MEDS: BISACODYL 10 MG SUPP PR SCH (10:38)
[2017-12-03] MEDS: NORTRIPTYLINE HCL 25 MG CAP PO SCH (20:24)
[2017-12-03] MEDS: METHOCARBAMOL 750 MG TAB PO PRN (23:30)
[2017-12-04] MEDS: ACETAMINOPHEN 500 MG TAB PO SCH ×3 (05:44→23:01)
[2017-12-04] MEDS: oxyCODONE IR 5 MG TAB PO PRN (08:20)
[2017-12-04] MEDS: BISACODYL 10 MG SUPP PR SCH (09:33)
[2017-12-04] MEDS: POLYETHYLENE GLYCOL 3350 17 GM PKT PO SCH (09:36)
[2017-12-04] MEDS: clonazePAM 0.5 MG TAB PO SCH ×2 (09:41→20:43)
[2017-12-04] MEDS: FLUoxetine 20 MG CAP PO SCH (09:41)
[2017-12-04] MEDS: IRBESARTAN 150 MG TAB PO SCH (09:41)
[2017-12-04] MEDS: SENNOSIDES 1 TAB PO SCH ×2 (09:41→20:43)
[2017-12-04] MEDS: morphINE SR 15 MG TAB PO SCH ×2 (10:19→20:43)
[2017-12-04] MEDS: ENOXAPARIN 40 MG/0.4 ML SYR SC SCH (10:20)
--- NOTE | 2017-12-04 11:10 | SOAPPROG ---
SOAP Progress Note Assessment/Plan: Assessment: 67-year-old woman status post evacuation of lumbar hematoma and compression of cauda equina following a L3-L4 laminectomy, bilateral lower extremity weakness left greater than right, lower motor neuron bowel and bladder. MRI 11/25/2017 shows stenosis at the level of L2 and L3 with the conus ending at L1. Debility with bilateral lower extremity weakness, left greater than right, following L3-L4 laminectomy, hematoma causing spinal cord compression, repeat surgery for evacuation of hematoma and further removal of old hardware from L1 to L3. * Initial functional independence measure is 61 on 11/30/2017. Minimal assist for bed mobility to help with her legs. Transfers require maximal assist. She has self-propelled wheelchair 150 ft. Grooming and hygiene is done from the wheelchair with modified independence. Upper body dressing requires setup and cues. Lower body dressing requires total to max if she tries to do it sitting up S she does better if supine, minimal assist. Shower required setup and supervision. Bath transfer required maximal assist. * Continue PT and OT to optimize mobility and activities of daily living. Neuropathic pain and difficulty sleeping. * Increased nortriptyline from 25 mg at HS to 50 mg at HS on 11/30/2017. * Discontinue oxycodone/acetaminophen combination. Initiated acetaminophen 1000 mg q.8 hours and oxycodone 5-15 mg every 3 hr as needed, starting 2017. * Starting morphine SR 15 mg twice daily on 12/04/2017. * Transition from fluoxetine plus nortriptyline to duloxetine 12/05 and 2017. Constipation. * Increase senna from 1 tablet twice daily to 2 tablets twice daily starting . Continue polyethylene glycol q.day, continue bisacodyl suppository p.r.n.. No response cong magnesium citrate on 12/01/2017. Had 2nd dose on 2017. * Possible neurogenic bowel. Has had several large watery stools with current laxatives plus 2 doses of magnesium citrate. Recheck abdominal x-ray today, , to see if imaging consistent with obstipation has resolved. Postoperative anemia and possible history of renal insufficiency. * Anemia progressed since hospitalization, with hemoglobin decreased from 11.2 to-8.9; subsequent improvement to 9.4 on 11/29/2017. * Essentially stable with hemoglobin 9.2 on 12/02/2017. Wound care. Urania inadvertently removed early. * No S/Sx infection. Minimal serous drainage. Continue to monitor daily. Chronic/stable issues: Neurogenic bladder. No response to bethanechol, and may be causing urinary frequency at night. * Discontinued bethanechol 11/30/2017. * Shelton catheter placed 12/01/2017 as she is unable to self catheterization; she was accustomed to doing it it from a standing position and cannot stand currently. Hyponatremia, stable at 134 on labs 12/02/2017. Osteoporosis. No vitamin-D deficiency. * She reports having used a bisphosphonate in the past. There is mention in hospital paperwork of history of hypercalcemia. Vitamin-D level at 93 on labs from 11/28/2017. * Chronic mild hypercalcemia with normal PTH on 12/02/2017. Hypertension. Continue irbesartan and adjust or add antihypertensives as needed. History of depression and anxiety. * Change from fluoxetine to to duloxetine for neuropathic pain effect. Weight loss with possible esophageal motility issues. She will have consultation with a dietitian regarding optimizing her nutrition with more manageable diet textures. Prophylaxis. She has greatly reduced mobility. I have initiated enoxaparin 40 mg subcutaneous q. day at a prophylactic dose. She is likely not at increased risk for GI bleeding, so I have not placed her on a proton pump inhibitor. DISPOSITION: Lives in a 1 story home with 3 steps to enter. Brother, who is retired, is visiting and can stay indefinitely. She has a roommate who can help as well. Initial goal is safe transfers and community mobility with wheelchair. Tentative discharge date set for 12/16/2017. FOLLOW-UP: D/W Surgeon, Dr. Cody Leon. Can see for follow-up after her discharge from inpatient rehabilitation. Urania can be removed at approximately 2 weeks post surgery. He may come see her on the rehab unit.. 12/04/17 11:11 Subjective: Had poor sleep overnight, partly due to pain. Declined suppository and bowel protocol this morning as it is too painful in her buttocks for her to sit on the toilet. Pain improved after 15 mg of oxycodone this morning. She reports she has transferring well using the sliding board. Otherwise without complaints. No cough or dyspnea, no fevers or chills. Objective: Vital Signs Temp Pulse Resp BP Pulse Ox 36.9 C 93 16 125/78 H 90 L 12/04/17 06:20 12/04/17 06:20 12/04/17 06:20 12/04/17 06:20 12/04/17 06:20 Laboratory Results 12/02/17 06:00 12/02/17 06:00 12/03/17 12/04/17 12/05/17 05:59 05:59 05:59 Intake Total 475 1060 Output Total 1400 1025 Balance -925 35 Physical Exam - Physical Exam General Appearance: WD/WN, alert, no apparent distress Respiratory: normal breath sounds, No crackles, No rhonchi, No wheezing Cardiac/Chest: regular rate, rhythm, No edema, No diastolic murmur, No systolic murmur Skin: normal color, warm/dry Neuro/Psych: alert, normal mood/affect, oriented x 3, motor weakness (Bilateral lower extremities) ICD10 Worksheet Patient Problems: Problems Problem Status Onset Altered mental status Acute Hypochloremia Acute Hypochloremia Acute Hypokalemia Acute Hyponatremia Acute Hyponatremia Acute Renal insufficiency Acute Spinal stenosis Acute Urinary tract infection Acute
[2017-12-04] MEDS: METHOCARBAMOL 750 MG TAB PO PRN (15:41)
[2017-12-05] MEDS: METHOCARBAMOL 750 MG TAB PO PRN ×3 (01:45→21:29)
[2017-12-05] MEDS: BISACODYL 10 MG SUPP PR SCH (06:00)
[2017-12-05] MEDS: ACETAMINOPHEN 500 MG TAB PO SCH ×3 (06:00→21:26)
[2017-12-05] MEDS: POLYETHYLENE GLYCOL 3350 17 GM PKT PO SCH (09:02)
[2017-12-05] MEDS: morphINE SR 15 MG TAB PO SCH ×2 (09:03→20:00)
[2017-12-05] MEDS: clonazePAM 0.5 MG TAB PO SCH ×2 (09:03→20:00)
[2017-12-05] MEDS: IRBESARTAN 150 MG TAB PO SCH (09:04)
[2017-12-05] MEDS: SENNOSIDES 1 TAB PO SCH ×2 (09:09→20:00)
[2017-12-05] MEDS: ENOXAPARIN 40 MG/0.4 ML SYR SC SCH (09:11)
[2017-12-05] MEDS ORDERED: LACTULOSE 20 GM/30 ML UDCUP PO PRN (12:01)
[2017-12-05] MEDS ORDERED: MAGNESIUM HYDROXIDE 30 ML UDCUP PO PRN (12:01)
--- NOTE | 2017-12-05 12:10 | HOSPPROG ---
Hospitalist Progress Note Assessment/Plan: Assessment: 67 yo F p/w cauda equina following L3-L4 lami c/b likely neurogenic bowel/bladder resulting in urinary retention/constipation Plan: # Cauda equina. Ongoing work w/ therapies for LE paresis -examined L spine wound, healing very well w/o surrounding erythema, cont dressing changes # Urinary retention. 2/2 neurogenic bladder, continue pacheco # Constipation. Acute, 2/2 likely neurogenic bowel, significant bowel distension present on abd x-ray (personally interpreted) despite small liquid stool w/ mag citrate -d/w RN and patient, we will engage in more aggressive laxatives today w/ miralax/MoM/lactulose and gauge effect, if she has neurogenic bowel then enemas/ suppository may be less effective -if not relieved by tomorrow, will give go-lytely # HTN. Chronic, cont ARB, SBP 120 # Neuropathic pain. Adjusting from nortript to cymbalta + morphine SR Diet. Regular PPx. ABRAHAN Ramsey SCDs Code. Full Dispo. Lives in a 1 story home with 3 steps to enter. Brother, who is retired, is visiting and can stay indefinitely. She has a roommate who can help as well. Initial goal is safe transfers and community mobility with wheelchair. Tentative discharge date set for 12/16/2017. Subjective: no BMs, mild pain when on toilet for extended period Objective: Vital Signs Temp Pulse Resp BP Pulse Ox 36.6 C 93 16 119/79 94 12/05/17 06:27 12/05/17 06:27 12/05/17 06:27 12/05/17 09:04 12/05/17 06:27 Laboratory Results 12/02/17 06:00 12/02/17 06:00 12/04/17 12/05/17 12/06/17 05:59 05:59 05:59 Intake Total 1060 1300 250 Output Total 1025 1175 Balance 35 125 250 - Physical Exam Constitutional: no apparent distress, not in pain, chronically ill appearing, No uncomfortable Cardiovascular: regular rate and rhythym, no murmur, rub, or gallop, No edema Respiratory: no respiratory distress, no rales or rhonchi, clear to auscultation Gastrointestinal: soft, non-tender abdomen, no palpable masses, No normoactive bowel sounds (hypoactive bowel sounds), No distension Skin: No erythema (no tenderness, no induration, no drainage from L spine site) Neurologic: AAOx3 Psychiatric: interacting appropriately, not anxious, not encephalopathic, thought process linear ICD10 Worksheet Patient Problems: Problems Problem Status Onset Urinary tract infection Acute Hyponatremia Acute Spinal stenosis Acute Hypochloremia Acute Hypokalemia Acute Hyponatremia Acute Hypochloremia Acute Renal insufficiency Acute Altered mental status Acute
[2017-12-05] MEDS ORDERED: DULoxetine 30 MG CAP PO SCH (21:00)
[2017-12-06] MEDS: ACETAMINOPHEN 500 MG TAB PO SCH ×3 (05:55→21:31)
[2017-12-06] MEDS: BISACODYL 10 MG SUPP PR SCH (05:55)
[2017-12-06] MEDS: ENOXAPARIN 40 MG/0.4 ML SYR SC SCH (09:05)
[2017-12-06] MEDS: clonazePAM 0.5 MG TAB PO SCH ×2 (09:05→21:31)
[2017-12-06] MEDS: IRBESARTAN 150 MG TAB PO SCH (09:05)
[2017-12-06] MEDS: POLYETHYLENE GLYCOL 3350 17 GM PKT PO SCH (09:05)
[2017-12-06] MEDS: SENNOSIDES 1 TAB PO SCH ×2 (09:05→21:31)
[2017-12-06] MEDS: morphINE SR 15 MG TAB PO SCH ×2 (09:05→21:31)
--- NOTE | 2017-12-06 12:36 | HOSPPROG ---
Hospitalist Progress Note Assessment/Plan: Assessment: 67 yo F p/w cauda equina following L3-L4 lami c/b likely neurogenic bowel/bladder resulting in urinary retention/constipation Plan: # Cauda equina. Ongoing work w/ therapies for LE paresis -examined L spine wound, healing very well w/o surrounding erythema, cont dressing changes # Urinary retention. 2/2 neurogenic bladder, continue pacheco # Constipation. Acute, 2/2 likely neurogenic bowel, resolved w/ solid stool # HTN. Chronic, cont ARB, SBP 120 # Neuropathic pain. Adjusting from nortript to cymbalta + morphine SR, weaning of fluoxetine Diet. Regular PPx. Lovenox, DC SCDs Code. Full Dispo. Lives in a 1 story home with 3 steps to enter. Brother, who is retired, is visiting and can stay indefinitely. She has a roommate who can help as well. Initial goal is safe transfers and community mobility with wheelchair. Tentative discharge date set for 12/16/2017. Subjective: had solid BM, slept well, responding to robaxin Objective: Vital Signs Temp Pulse Resp BP Pulse Ox 36.6 C 82 16 122/86 H 93 12/06/17 06:15 12/06/17 06:15 12/06/17 06:15 12/06/17 09:05 12/06/17 06:15 Laboratory Results 12/02/17 06:00 12/02/17 06:00 12/05/17 12/06/17 12/07/17 05:59 05:59 05:59 Intake Total 1300 990 Output Total 1175 1250 Balance 125 -260 - Physical Exam Constitutional: no apparent distress, appears nourished, not in pain, No uncomfortable Cardiovascular: regular rate and rhythym, no murmur, rub, or gallop, No edema Respiratory: no respiratory distress, no rales or rhonchi, clear to auscultation Gastrointestinal: normoactive bowel sounds, soft, non-tender abdomen, No guarding, No distension Genitourinary: pacheco in urethra Skin: other (no erythema around surg site, no tenderness, no induration, closing well) Neurologic: AAOx3, weakness (L foot drop w/ minimal dorsiflexion of toes) Psychiatric: interacting appropriately, not anxious, not encephalopathic, thought process linear ICD10 Worksheet Patient Problems: Problems Problem Status Onset Altered mental status Acute Hypochloremia Acute Hypochloremia Acute Hypokalemia Acute Hyponatremia Acute Hyponatremia Acute Renal insufficiency Acute Spinal stenosis Acute Urinary tract infection Acute
[2017-12-06] MEDS: DULoxetine 30 MG CAP PO SCH (21:33)
[2017-12-07] MEDS: ACETAMINOPHEN 500 MG TAB PO SCH ×3 (05:02→22:33)
[2017-12-07] MEDS: BISACODYL 10 MG SUPP PR SCH ×2 (05:07→12:36)
[2017-12-07] MEDS: IRBESARTAN 150 MG TAB PO SCH (08:55)
[2017-12-07] MEDS: morphINE SR 15 MG TAB PO SCH ×2 (08:56→22:34)
[2017-12-07] MEDS: SENNOSIDES 1 TAB PO SCH ×2 (08:56→22:34)
[2017-12-07] MEDS: DULoxetine 30 MG CAP PO SCH ×2 (08:57→22:34)
[2017-12-07] MEDS: clonazePAM 0.5 MG TAB PO SCH ×2 (08:57→22:34)
[2017-12-07] MEDS: ENOXAPARIN 40 MG/0.4 ML SYR SC SCH (08:57)
[2017-12-07] MEDS: POLYETHYLENE GLYCOL 3350 17 GM PKT PO SCH (08:57)
--- NOTE | 2017-12-07 09:52 | SOAPPROG ---
SOAP Progress Note Assessment/Plan: Assessment: 67-year-old woman status post evacuation of lumbar hematoma and compression of cauda equina following a L3-L4 laminectomy, bilateral lower extremity weakness left greater than right, lower motor neuron bowel and bladder. MRI 11/25/2017 shows stenosis at the level of L2 and L3 with the conus ending at L1. Debility with bilateral lower extremity weakness, left greater than right, following L3-L4 laminectomy, hematoma causing spinal cord compression, repeat surgery for evacuation of hematoma and further removal of old hardware from L1 to L3. * Initial functional independence measure is 61 on 11/30/2017. Minimal assist for bed mobility to help with her legs. Transfers require maximal assist. She has self-propelled wheelchair 150 ft. Grooming and hygiene is done from the wheelchair with modified independence. Upper body dressing requires setup and cues. Lower body dressing requires total to max if she tries to do it sitting up S she does better if supine, minimal assist. Shower required setup and supervision. Bath transfer required maximal assist. * Continue PT and OT to optimize mobility and activities of daily living. Neuropathic pain and difficulty sleeping. * Increased nortriptyline from 25 mg at HS to 50 mg at HS on 11/30/2017. * Discontinue oxycodone/acetaminophen combination. Initiated acetaminophen 1000 mg q.8 hours and oxycodone 5-15 mg every 3 hr as needed, starting 2017. * Starting morphine SR 15 mg twice daily on 12/04/2017. * Transition from fluoxetine plus nortriptyline to duloxetine 12/05 and 2017. Constipation. * Increase senna from 1 tablet twice daily to 2 tablets twice daily starting . Continue polyethylene glycol q.day, continue bisacodyl suppository p.r.n.. No response cong magnesium citrate on 12/01/2017. Had 2nd dose on 2017. * Possible neurogenic bowel. Has had several large watery stools with current laxatives plus 2 doses of magnesium citrate. Recheck abdominal x-ray today, , to see if imaging consistent with obstipation has resolved. Postoperative anemia and possible history of renal insufficiency. * Anemia progressed since hospitalization, with hemoglobin decreased from 11.2 to-8.9; subsequent improvement to 9.4 on 11/29/2017. * Essentially stable with hemoglobin 9.2 on 12/02/2017. Wound care. [place] inadvertently removed early. * No S/Sx infection. Minimal serous drainage. Continue to monitor daily. Chronic/stable issues: Neurogenic bladder. No response to bethanechol, and may be causing urinary frequency at night. * Discontinued bethanechol 11/30/2017. * Shelton catheter placed 12/01/2017 as she is unable to self catheterization; she was accustomed to doing it it from a standing position and cannot stand currently. Hyponatremia, stable at 134 on labs 12/02/2017. Osteoporosis. No vitamin-D deficiency. * She reports having used a bisphosphonate in the past. There is mention in hospital paperwork of history of hypercalcemia. Vitamin-D level at 93 on labs from 11/28/2017. * Chronic mild hypercalcemia with normal PTH on 12/02/2017. Hypertension. Continue irbesartan and adjust or add antihypertensives as needed. History of depression and anxiety. * Change from fluoxetine to to duloxetine for neuropathic pain effect. Weight loss with possible esophageal motility issues. She will have consultation with a dietitian regarding optimizing her nutrition with more manageable diet textures. Prophylaxis. She has greatly reduced mobility. I have initiated enoxaparin 40 mg subcutaneous q. day at a prophylactic dose. She is likely not at increased risk for GI bleeding, so I have not placed her on a proton pump inhibitor. DISPOSITION: Lives in a 1 story home with 3 steps to enter. Brother, who is retired, is visiting and can stay indefinitely. She has a roommate who can help as well. Initial goal is safe transfers and community mobility with wheelchair. Tentative discharge date set for 12/16/2017. FOLLOW-UP: D/W Surgeon, Dr. Cody Leon. Can see for follow-up after her discharge from inpatient rehabilitation. [place] can be removed at approximately 2 weeks post surgery. He may come see her on the rehab unit.. 12/04/17 11:11 Subjective: Had a bowel movement yesterday. Also had emesis with dinner. No abdominal pain. Has an appetite this morning. Slept well. Feels she has some strength coming back to her legs, and has done standing and pre gait activities in parallel bars. Objective: Vital Signs Temp Pulse Resp BP Pulse Ox 36.6 C 99 16 124/93 H 93 12/07/17 06:23 12/07/17 06:23 12/07/17 06:23 12/07/17 08:55 12/07/17 06:23 Laboratory Results 12/02/17 06:00 12/02/17 06:00 12/06/17 12/07/17 12/08/17 05:59 05:59 05:59 Intake Total 990 400 Output Total 1250 1100 Balance -260 -700 Physical Exam - Physical Exam General Appearance: WD/WN, alert, no apparent distress Respiratory: normal breath sounds, No crackles, No rhonchi, No wheezing Cardiac/Chest: regular rate, rhythm, No edema, No diastolic murmur, No systolic murmur Abdomen: normal bowel sounds, non-tender, soft, No distended Skin: normal color, warm/dry Neuro/Psych: alert, normal mood/affect, oriented x 3 ICD10 Worksheet Patient Problems: Problems Problem Status Onset Altered mental status Acute Hypochloremia Acute Hypochloremia Acute Hypokalemia Acute Hyponatremia Acute Hyponatremia Acute Renal insufficiency Acute Spinal stenosis Acute Urinary tract infection Acute
[2017-12-08] MEDS: METHOCARBAMOL 750 MG TAB PO PRN ×2 (01:37→20:23)
[2017-12-08] MEDS: BISACODYL 10 MG SUPP PR SCH (06:31)
[2017-12-08] MEDS: ACETAMINOPHEN 500 MG TAB PO SCH ×3 (06:31→21:50)
[2017-12-08] MEDS: clonazePAM 0.5 MG TAB PO SCH ×2 (08:54→20:23)
[2017-12-08] MEDS: DULoxetine 30 MG CAP PO SCH ×2 (08:54→20:22)
[2017-12-08] MEDS: POLYETHYLENE GLYCOL 3350 17 GM PKT PO SCH (08:55)
[2017-12-08] MEDS: morphINE SR 15 MG TAB PO SCH ×2 (08:55→20:23)
[2017-12-08] MEDS: ENOXAPARIN 40 MG/0.4 ML SYR SC SCH (08:56)
[2017-12-08] MEDS: SENNOSIDES 1 TAB PO SCH ×2 (08:56→20:22)
[2017-12-08] MEDS: IRBESARTAN 150 MG TAB PO SCH (08:56)
--- NOTE | 2017-12-08 10:15 | SOAPPROG ---
SOAP Progress Note Assessment/Plan: 67-year-old woman status post evacuation of lumbar hematoma and compression of cauda equina following a L3-L4 laminectomy, bilateral lower extremity weakness left greater than right, lower motor neuron bowel and bladder. MRI 11/25/2017 shows stenosis at the level of L2 and L3 with the conus ending at L1. Today's update: Neurogenic bowel, lower motor neuron, continues to be an issue for her. She endorses that she has had scant bowel movements, mostly liquidy. Plan to get a follow-up KUB today. If she is not retaining stool, plan to change bowel program to have more solid stools, if she is still retaining stool , consider repeat enema and GI consult for obstipation in the setting of lower motor neuron neurogenic bowel. She endorses her mood is somewhat low today in the setting of the recent of a friend and her CT. She was also changed from her long-standing SSRI to a new antidepressant strategy to focus on neuropathic pain. Monitor closely for mood changes. Occasional nausea and emesis is premorbid, no significant change. Continue with Shelton. A total of 35 min was spent on the floor in the care of the patient, the majority of which was spent in counseling coordination of care regarding cauda equina syndrome and complications, specifically neurogenic bowel, as well as low mood. She would benefit from working with physiatry after discharge. She would also benefit from follow up with GI for upper esophageal motility issues. Urology for neurogenic bladder. Other issues reviewed without change today include postoperative anemia and possible history of renal insufficiency, hyponatremia, osteoporosis, hypertension, history of anxiety and depression, weight loss. 12/01/17 09:21 12/03/17 09:39 12/08/17 10:12 Subjective: Chief complaint: Neurogenic bowel and low mood No acute events overnight. Patient denies any new shortness of breath or chest pain, no new numbness, tingling, or weakness. She notes that stools been small and liquidy, no significant bowel movements. Generally she does have small bowel movements with the suppository. She denies any abdominal pain, nausea and vomiting is at her baseline, feels that she has an appetite. Denies that she has had any large bowel movements since her last abdominal x-ray last week. Endorses that sensation and strength is improving in her legs but still impaired. She feels that the new antidepressant, duloxetine 30 mg twice daily has been fine. She endorsed that in the past week her longstanding friend and her CT also diet. She is aware of counseling resources, feels hopeful. Objective: Vital Signs Temp Pulse Resp BP Pulse Ox 36.7 C 90 16 124/86 H 94 12/08/17 06:26 12/08/17 06:26 12/08/17 06:26 12/08/17 06:26 12/08/17 06:26 Laboratory Results 12/02/17 06:00 12/02/17 06:00 12/07/17 12/08/17 12/09/17 05:59 05:59 05:59 Intake Total 400 1500 Output Total 1100 850 Balance -700 650 Physical Exam - Physical Exam General Appearance: WD/WN, alert, no apparent distress EENT: No scleral icterus (R), No scleral icterus (L) Respiratory: No respiratory distress, No accessory muscle use Cardiac/Chest: normal peripheral pulses, regular rate, rhythm, No edema Skin: normal color, warm/dry, No cyanosis, No diaphoresis Extremities: No pedal edema, No swelling Neuro/Psych: alert, other (Decreased sensation to light touch in the bilateral lower limbs, better on the left, strength improving.), No normal mood/affect ( Somewhat low mood, normal affect) ICD10 Worksheet Patient Problems: Problems Problem Status Onset Altered mental status Acute Hypochloremia Acute Hypochloremia Acute Hypokalemia Acute Hyponatremia Acute Hyponatremia Acute Renal insufficiency Acute Spinal stenosis Acute Urinary tract infection Acute
[2017-12-08] MEDS: LUBIPROSTONE 8 MCG CAP PO SCH (20:29)
[2017-12-08] MEDS ORDERED: LUBIPROSTONE 24 MCG CAP PO SCH (21:00)
[2017-12-09] MEDS: ACETAMINOPHEN 500 MG TAB PO SCH ×3 (06:20→21:08)
[2017-12-09] MEDS: BISACODYL 10 MG SUPP PR SCH (06:21)
[2017-12-09] MEDS: clonazePAM 0.5 MG TAB PO SCH ×2 (08:34→21:09)
[2017-12-09] MEDS: DULoxetine 30 MG CAP PO SCH ×2 (08:35→21:09)
[2017-12-09] MEDS: SENNOSIDES 1 TAB PO SCH ×2 (08:35→21:09)
[2017-12-09] MEDS: IRBESARTAN 150 MG TAB PO SCH (08:35)
[2017-12-09] MEDS: morphINE SR 15 MG TAB PO SCH ×2 (08:36→21:09)
[2017-12-09] MEDS: LUBIPROSTONE 8 MCG CAP PO SCH ×2 (08:36→21:32)
[2017-12-09] MEDS: METHYLNALTREXONE BROMIDE 12 MG/0.6 ML INJ SC SCH (08:37)
[2017-12-09] MEDS: ENOXAPARIN 40 MG/0.4 ML SYR SC SCH (08:49)
--- NOTE | 2017-12-09 11:09 | SOAPPROG ---
SOAP Progress Note Assessment/Plan: Assessment: 67-year-old woman status post evacuation of lumbar hematoma and compression of cauda equina following a L3-L4 laminectomy, bilateral lower extremity weakness left greater than right, lower motor neuron bowel and bladder. MRI 11/25/2017 shows stenosis at the level of L2 and L3 with the conus ending at L1. Debility with bilateral lower extremity weakness, left greater than right, following L3-L4 laminectomy, hematoma causing spinal cord compression, repeat surgery for evacuation of hematoma and further removal of old hardware from L1 to L3. * Initial functional independence measure is 61 on 11/30/2017, improved to 71 as of 12/07/2017. Standby assist for bed mobility with cues for spinal precautions. Transfers require standby assist for slide board, moderate assist for sit to stand. She ambulated 3 ft x 2, moderate assist, knee blocking, AFOs. She has self-propelled wheelchair 150 ft. Grooming and hygiene is done from the wheelchair with modified independence. Upper body dressing modified independent. Lower body dressing requires minimal to moderate assist. Bathing and toileting with modified independence, transfers with standby assist. * Continue PT and OT to optimize mobility and activities of daily living. Neuropathic pain and difficulty sleeping. * Increased nortriptyline from 25 mg at HS to 50 mg at HS on 11/30/2017. * Discontinue oxycodone/acetaminophen combination. Initiated acetaminophen 1000 mg q.8 hours and oxycodone 5-15 mg every 3 hr as needed, starting 2017. * Starting morphine SR 15 mg twice daily on 12/04/2017. * Transition from fluoxetine plus nortriptyline to duloxetine over 2 days, 12/05 and 12/06/2017. Constipation. Refractory to senna, polyethylene glycol, magnesium citrate, bisacodyl suppositories. * Constipation and neurogenic bowel issues discussed with Dr. Russ of Gastroenterology, , 12/08/2017. He does not believe that colonoscopy for disimpaction is an option. Per his advice initiated: * Methylnaltrexone 8 mcg QOD to remove the opiate induced constipation effect from the picture. * Discontinuation of polyethylene glycol. * Lubiprostone 8 mcg BID. * Continue senna and continue daily bisacodyl suppository. * Check electrolytes and magnesium q.3 days while on this protocol. Postoperative anemia and possible history of renal insufficiency. * Anemia progressed since hospitalization, with hemoglobin decreased from 11.2 to-8.9; subsequent improvement to 9.4 on 11/29/2017. * Essentially stable with hemoglobin 9.2 on 12/02/2017. Wound care. [place] inadvertently removed early. * No S/Sx infection. Minimal serous drainage. Continue to monitor daily. Chronic/stable issues: Neurogenic bladder. No response to bethanechol, and may be causing urinary frequency at night. * Discontinued bethanechol 11/30/2017. * Shelton catheter placed 12/01/2017 as she is unable to self catheterization; she was accustomed to doing it it from a standing position and cannot stand currently. Hyponatremia, stable at 134 on labs 12/02/2017. Osteoporosis. No vitamin-D deficiency. * She reports having used a bisphosphonate in the past. There is mention in hospital paperwork of history of hypercalcemia. Vitamin-D level at 93 on labs from 11/28/2017. * Chronic mild hypercalcemia with normal PTH on 12/02/2017. Hypertension. Continue irbesartan and adjust or add antihypertensives as needed. History of depression and anxiety. * Change from fluoxetine to to duloxetine for neuropathic pain effect. Weight loss with possible esophageal motility issues. She will have consultation with a dietitian regarding optimizing her nutrition with more manageable diet textures. Prophylaxis. She has greatly reduced mobility. I have initiated enoxaparin 40 mg subcutaneous q. day at a prophylactic dose. She is likely not at increased risk for GI bleeding, so I have not placed her on a proton pump inhibitor. DISPOSITION: Lives in a 1 story home with 3 steps to enter. Brother, who is retired, is visiting and can stay indefinitely. She has a roommate who can help as well. Initial goal is safe transfers and community mobility with wheelchair. Tentative discharge date set for 12/16/2017. FOLLOW-UP: D/W Surgeon, Dr. Cody Leon. Can see for follow-up after her discharge from inpatient rehabilitation. Pipestem can be removed at approximately 2 weeks post surgery. He may come see her on the rehab unit.. 12/09/17 09:57 Objective: Vital Signs Temp Pulse Resp BP Pulse Ox 36.6 C 91 15 127/84 H 93 12/09/17 06:51 12/09/17 06:51 12/09/17 06:51 12/09/17 08:35 12/09/17 06:51 Laboratory Results 12/02/17 06:00 12/02/17 06:00 12/08/17 12/09/17 12/10/17 05:59 05:59 05:59 Intake Total 1500 1050 Output Total 850 1050 Balance 650 0 ICD10 Worksheet Patient Problems: Problems Problem Status Onset Altered mental status Acute Hypochloremia Acute Hypochloremia Acute Hypokalemia Acute Hyponatremia Acute Hyponatremia Acute Renal insufficiency Acute Spinal stenosis Acute Urinary tract infection Acute
[2017-12-09] MEDS: METHOCARBAMOL 750 MG TAB PO PRN (21:11)
[2017-12-10] MEDS: ACETAMINOPHEN 500 MG TAB PO SCH ×3 (05:34→21:26)
[2017-12-10] MEDS: BISACODYL 10 MG SUPP PR SCH (07:17)
--- NOTE | 2017-12-10 08:29 | SOAPPROG ---
SOAP Progress Note Assessment/Plan: 67-year-old woman status post evacuation of lumbar hematoma and compression of cauda equina following a L3-L4 laminectomy, bilateral lower extremity weakness left greater than right, lower motor neuron bowel and bladder. MRI 11/25/2017 shows stenosis at the level of L2 and L3 with the conus ending at L1. Today's update: Continue LMN neurogenic bowel program in setting of recent large , formed stool per her report. Likely repeat a KUB next week to ensure no further retention. No changes to medications today. Otherwise no new neurological issues, continue rehabilitation plan. A total of 15 min was spent on the floor in the care of the patient, the majority of which was spent in the counseling and coordination of care regarding bowel program management options. She would benefit from working with physiatry after discharge. She would also benefit from follow up with GI for upper esophageal motility issues. Urology for neurogenic bladder. Other issues reviewed without change today include postoperative anemia and possible history of renal insufficiency, hyponatremia, osteoporosis, hypertension, history of anxiety and depression, weight loss. 12/01/17 09:21 12/03/17 09:39 12/08/17 10:12 12/10/17 08:26 12/10/17 08:29 Subjective: Chief complaint: Neurogenic bowel, lower motor neuron No acute events overnight. Patient endorsed a large comma formed stool yesterday. No abdominal discomfort, no fever, chills, no shortness of breath or chest pain, no new numbness, tingling, or weakness. Feels good about current bowel program. In much brighter spirits today. Objective: Vital Signs Temp Pulse Resp BP Pulse Ox 36.6 C 92 14 121/84 H 92 12/09/17 19:43 12/09/17 19:43 12/09/17 19:43 12/09/17 19:43 12/09/17 19:43 Laboratory Results 12/02/17 06:00 12/02/17 06:00 12/09/17 12/10/17 12/11/17 05:59 05:59 05:59 Intake Total 1050 540 Output Total 1050 750 Balance 0 -210 Physical Exam - Physical Exam General Appearance: WD/WN, alert, no apparent distress EENT: No scleral icterus (R), No scleral icterus (L) Respiratory: No respiratory distress, No accessory muscle use Cardiac/Chest: normal peripheral pulses, regular rate, rhythm, No edema Abdomen: No distended Skin: normal color, warm/dry, No cyanosis, No diaphoresis Extremities: No pedal edema, No swelling Neuro/Psych: alert, normal mood/affect ICD10 Worksheet Patient Problems: Problems Problem Status Onset Altered mental status Acute Hypochloremia Acute Hypochloremia Acute Hypokalemia Acute Hyponatremia Acute Hyponatremia Acute Renal insufficiency Acute Spinal stenosis Acute Urinary tract infection Acute
[2017-12-10] MEDS: ENOXAPARIN 40 MG/0.4 ML SYR SC SCH (08:51)
[2017-12-10] MEDS: DULoxetine 30 MG CAP PO SCH ×2 (08:51→21:29)
[2017-12-10] MEDS: SENNOSIDES 1 TAB PO SCH ×2 (08:51→21:24)
[2017-12-10] MEDS: morphINE SR 15 MG TAB PO SCH ×2 (08:51→21:25)
[2017-12-10] MEDS: clonazePAM 0.5 MG TAB PO SCH ×2 (08:51→21:26)
[2017-12-10] MEDS: IRBESARTAN 150 MG TAB PO SCH (08:55)
[2017-12-10] MEDS: LUBIPROSTONE 8 MCG CAP PO SCH (08:55)
[2017-12-10] MEDS: METHYLNALTREXONE BROMIDE 12 MG/0.6 ML INJ SC SCH (09:50)
[2017-12-10] MEDS: METHOCARBAMOL 750 MG TAB PO PRN (16:32)
[2017-12-10 18:13] LABS: PLATELET COUNT 160 10^3/uL (150-400)
[2017-12-11] MEDS: METHOCARBAMOL 750 MG TAB PO PRN (01:25)
[2017-12-11] MEDS: ACETAMINOPHEN 500 MG TAB PO SCH ×3 (06:30→20:51)
[2017-12-11] MEDS: BISACODYL 10 MG SUPP PR SCH (06:34)
[2017-12-11] MEDS: DULoxetine 30 MG CAP PO SCH ×2 (09:02→21:36)
[2017-12-11] MEDS: clonazePAM 0.5 MG TAB PO SCH ×2 (09:02→20:51)
[2017-12-11] MEDS: IRBESARTAN 150 MG TAB PO SCH (09:03)
[2017-12-11] MEDS: ENOXAPARIN 40 MG/0.4 ML SYR SC SCH (09:03)
[2017-12-11] MEDS: SENNOSIDES 1 TAB PO SCH ×2 (09:03→20:51)
[2017-12-11] MEDS: METHYLNALTREXONE BROMIDE 12 MG/0.6 ML INJ SC SCH (09:09)
[2017-12-11] MEDS: LUBIPROSTONE 8 MCG CAP PO SCH (09:09)
--- NOTE | 2017-12-11 11:24 | SOAPPROG ---
SOAP Progress Note Assessment/Plan: Assessment: 67-year-old woman status post evacuation of lumbar hematoma and compression of cauda equina following a L3-L4 laminectomy, bilateral lower extremity weakness left greater than right, lower motor neuron bowel and bladder. MRI 11/25/2017 shows stenosis at the level of L2 and L3 with the conus ending at L1. Debility with bilateral lower extremity weakness, left greater than right, following L3-L4 laminectomy, hematoma causing spinal cord compression, repeat surgery for evacuation of hematoma and further removal of old hardware from L1 to L3. * Initial functional independence measure is 61 on 11/30/2017, improved to 71 as of 12/07/2017. Standby assist for bed mobility with cues for spinal precautions. Transfers require standby assist for slide board, moderate assist for sit to stand. She ambulated 3 ft x 2, moderate assist, knee blocking, AFOs. She has self-propelled wheelchair 150 ft. Grooming and hygiene is done from the wheelchair with modified independence. Upper body dressing modified independent. Lower body dressing requires minimal to moderate assist. Bathing and toileting with modified independence, transfers with standby assist. * Continue PT and OT to optimize mobility and activities of daily living. Neuropathic pain and difficulty sleeping. * Addition of nortriptyline to fluoxetine was not successful. Has done better since transition from fluoxetine plus nortriptyline to duloxetine over 2 days, and 12/06/2017. * Started morphine SR 15 mg twice daily on 12/04/2017. Initiated acetaminophen 1000 mg q.8 hours and oxycodone 5-15 mg every 3 hr as needed, starting 2017. * No longer using oxycodone during the day. Will discontinue morning dose of morphine SR starting 12/12/2017. Constipation. Refractory to senna, polyethylene glycol, magnesium citrate, bisacodyl suppositories. * Constipation and neurogenic bowel issues discussed with Dr. Russ of Gastroenterology, , 12/08/2017. He does not believe that colonoscopy for disimpaction is an option. Per his advice initiated: * Methylnaltrexone 8 mcg QOD to remove the opiate induced constipation effect from the picture. * Discontinuation of polyethylene glycol. * Lubiprostone 8 mcg BID. Changed to daily starting 12/11/2017 due to multiple loose stools on 12/10/2017. * Continue senna and continue daily bisacodyl suppository. * Check electrolytes and magnesium q.3 days while on this protocol. Hypo magnesium 12/10/2017 and stable mild hyponatremia. Recheck 12/13/2017. Hypomagnesia: Due to GI losses, or reduced absorption? * Initiate magnesium oxide 400 mg QD on 12/11/2017. Postoperative anemia and possible history of renal insufficiency. * Anemia progressed since hospitalization, with hemoglobin decreased from 11.2 to-8.9; subsequent improvement to 9.4 on 11/29/2017. * Essentially stable with hemoglobin 9.2 on 12/02/2017. Improved with H/H 10.7/ 31.3 on 12/10/2017. Wound care. [place] inadvertently removed early. * No S/Sx infection. Minimal serous drainage. Continue to monitor daily. Confusion noted by nursing on 12/10/2017. CBC and BMP without infectious or metabolic etiologies. Seems much less confused and knows her medications on . Chronic/stable issues: Neurogenic bladder. No response to bethanechol, and may be causing urinary frequency at night. * Discontinued bethanechol 11/30/2017. * [place] catheter placed 12/01/2017 as she is unable to self catheterization; she was accustomed to doing it it from a standing position and cannot stand currently. Hyponatremia, stable at 134 on labs 12/02/2017. Osteoporosis. No vitamin-D deficiency. * She reports having used a bisphosphonate in the past. There is mention in hospital paperwork of history of hypercalcemia. Vitamin-D level at 93 on labs from 11/28/2017. * Chronic mild hypercalcemia with normal PTH on 12/02/2017. Hypertension. Continue irbesartan and adjust or add antihypertensives as needed. History of depression and anxiety. * Change from fluoxetine to to duloxetine for neuropathic pain effect. * Depressed mood due to 2 people in her life recently dying, much improved 2017. Weight loss with possible esophageal motility issues. She will have consultation with a dietitian regarding optimizing her nutrition with more manageable diet textures. Prophylaxis. She has greatly reduced mobility. I have initiated enoxaparin 40 mg subcutaneous q. day at a prophylactic dose. She is likely not at increased risk for GI bleeding, so I have not placed her on a proton pump inhibitor. DISPOSITION: Lives in a 1 story home with 3 steps to enter. She has a roommate who can help as well. Initial goal is safe transfers and community mobility with wheelchair. Tentative discharge date set for 12/16/2017. FOLLOW-UP: D/W Surgeon, Dr. Cody Leon. Can see for follow-up after her discharge from inpatient rehabilitation. Follow up with Urology regarding neurogenic bladder. Follow up with physiatry for ongoing care of leg weakness and spinal cord injury issues. 12/11/17 11:06 12/11/17 13:48 Subjective: No complaints. Pain is improved and she has stopped using oxycodone during the day. She reports her pain is mostly at night. She had a sudden urge to move her bowels today while working in the parallel bars with PT. She was able to roll herself to the bathroom and transfer to the commode which she moved her bowels, with no incontinence. She has no abdominal pain, no cough or dyspnea. She reports she had chronic constipation "my whole life" prior to her back issues. Objective: Vital Signs Temp Pulse Resp BP Pulse Ox 36.9 C 91 12 135/94 H 95 12/11/17 08:00 12/11/17 08:00 12/11/17 08:00 12/11/17 09:03 12/10/17 20:00 Laboratory Results 12/10/17 16:53 12/10/17 16:53 12/10/17 12/11/17 12/12/17 05:59 05:59 05:59 Intake Total 540 300 875 Output Total 750 600 700 Balance -210 -300 175 Physical Exam - Physical Exam General Appearance: WD/WN, alert, no apparent distress Respiratory: No respiratory distress, No accessory muscle use Skin: normal color, warm/dry Neuro/Psych: alert, normal mood/affect, oriented x 3 ICD10 Worksheet Patient Problems: Problems Problem Status Onset Altered mental status Acute Hypochloremia Acute Hypochloremia Acute Hypokalemia Acute Hyponatremia Acute Hyponatremia Acute Renal insufficiency Acute Spinal stenosis Acute Urinary tract infection Acute
[2017-12-11] MEDS: MAGNESIUM OXIDE 400 MG TAB PO SCH (15:19)
[2017-12-11] MEDS: morphINE SR 15 MG TAB PO SCH (20:52)
[2017-12-12] MEDS: oxyCODONE IR 5 MG TAB PO PRN (01:15)
[2017-12-12] MEDS: BISACODYL 10 MG SUPP PR SCH (05:29)
[2017-12-12] MEDS: ACETAMINOPHEN 500 MG TAB PO SCH ×3 (06:22→19:39)
[2017-12-12] MEDS: DULoxetine 30 MG CAP PO SCH ×2 (08:41→19:39)
[2017-12-12] MEDS: ENOXAPARIN 40 MG/0.4 ML SYR SC SCH (08:41)
[2017-12-12] MEDS: clonazePAM 0.5 MG TAB PO SCH ×2 (08:42→19:39)
[2017-12-12] MEDS: MAGNESIUM OXIDE 400 MG TAB PO SCH (08:42)
[2017-12-12] MEDS: IRBESARTAN 150 MG TAB PO SCH (08:42)
[2017-12-12] MEDS: SENNOSIDES 1 TAB PO SCH ×2 (08:42→19:39)
--- NOTE | 2017-12-12 09:22 | SOAPPROG ---
SOAP Progress Note Assessment/Plan: Assessment: Debility with bilateral lower extremity weakness, left greater than right, following L3-L4 laminectomy, hematoma causing spinal cord compression, repeat surgery for evacuation of hematoma and further removal of old hardware from L1 to L3. * Initial functional independence measure is 61 on 11/30/2017, improved to 71 as of 12/07/2017. Standby assist for bed mobility with cues for spinal precautions. Transfers require standby assist for slide board, moderate assist for sit to stand. She ambulated 3 ft x 2, moderate assist, knee blocking, AFOs. She has self-propelled wheelchair 150 ft. Grooming and hygiene is done from the wheelchair with modified independence. Upper body dressing modified independent. Lower body dressing requires minimal to moderate assist. Bathing and toileting with modified independence, transfers with standby assist. * Continue PT and OT to optimize mobility and activities of daily living. Neuropathic pain and difficulty sleeping. * Addition of nortriptyline to fluoxetine was not successful. Has done better since transition from fluoxetine plus nortriptyline to duloxetine over 2 days, and 12/06/2017. * Started morphine SR 15 mg twice daily on 12/04/2017. Initiated acetaminophen 1000 mg q.8 hours and oxycodone 5-15 mg every 3 hr as needed, starting 2017. WILL DISCUSS WITH NURSING TO TRY TO ENCOURAGE PATIENT TO TAKE THE ACETAMINOPHEN AND ENCOURAGE PATIENT TO BEGIN SELF WEAN OFF OF OXYCODONE * No longer using oxycodone during the day. Will discontinue morning dose of morphine SR starting 12/12/2017. Constipation. Refractory to senna, polyethylene glycol, magnesium citrate, bisacodyl suppositories. * Constipation and neurogenic bowel issues discussed with Dr. Russ of Gastroenterology, , 12/08/2017. He does not believe that colonoscopy for disimpaction is an option. Per his advice initiated: * Methylnaltrexone 8 mcg QOD to remove the opiate induced constipation effect from the picture. * Discontinuation of polyethylene glycol. * Lubiprostone 8 mcg BID. Changed to daily starting 12/11/2017 due to multiple loose stools on 12/10/2017. * Continue senna and continue daily bisacodyl suppository. * Check electrolytes and magnesium q.3 days while on this protocol. Hypo magnesium 12/10/2017 and stable mild hyponatremia. Recheck 12/13/2017. HAVE ORDERED MAGNESIUM LEVEL AND AND BMP TO BE DRAWN ON THURSDAY MORNING. Hypomagnesia: Due to GI losses, or reduced absorption? * Initiate magnesium oxide 400 mg QD on 12/11/2017. WILL CHECK MAGNESIUM LEVEL TOMORROW MORNING Postoperative anemia and possible history of renal insufficiency. * Anemia progressed since hospitalization, with hemoglobin decreased from 11.2 to-8.9; subsequent improvement to 9.4 on 11/29/2017. * Essentially stable with hemoglobin 9.2 on 12/02/2017. Improved with H/H 10.7/ 31.3 on 12/10/2017. Wound care. [place] inadvertently removed early. * No S/Sx infection. Minimal serous drainage. Continue to monitor daily. Confusion noted by nursing on 12/10/2017. CBC and BMP without infectious or metabolic etiologies. Seems much less confused and knows her medications on . Chronic/stable issues: Neurogenic bladder. No response to bethanechol, and may be causing urinary frequency at night. * Discontinued bethanechol 11/30/2017. * [place] catheter placed 12/01/2017 as she is unable to self catheterization; she was accustomed to doing it it from a standing position and cannot stand currently. * CONSIDER URODYNAMIC STUDIES IF NOT PREVIOUSLY OBTAINED Hyponatremia, stable at 134 on labs 12/02/2017. Osteoporosis. No vitamin-D deficiency. * She reports having used a bisphosphonate in the past. There is mention in hospital paperwork of history of hypercalcemia. Vitamin-D level at 93 on labs from 11/28/2017. * Chronic mild hypercalcemia with normal PTH on 12/02/2017. Hypertension. Continue irbesartan and adjust or add antihypertensives as needed. History of depression and anxiety. * Change from fluoxetine to to duloxetine for neuropathic pain effect. * Depressed mood due to 2 people in her life recently dying, much improved 2017. Weight loss with possible esophageal motility issues. She will have consultation with a dietitian regarding optimizing her nutrition with more manageable diet textures. Prophylaxis. She has greatly reduced mobility. I have initiated enoxaparin 40 mg subcutaneous q. day at a prophylactic dose. She is likely not at increased risk for GI bleeding, so I have not placed her on a proton pump inhibitor. DISPOSITION: Lives in a 1 story home with 3 steps to enter. She has a roommate who can help as well. Initial goal is safe transfers and community mobility with wheelchair. Tentative discharge date set for 12/16/2017. FOLLOW-UP: D/W Surgeon, Dr. Cody Leon. Can see for follow-up after her discharge from inpatient rehabilitation. Follow up with Urology regarding neurogenic bladder. Follow up with physiatry for ongoing care of leg weakness and spinal cord injury issues. Plan: 12/12/17 09:16 Subjective: SHE DENIES LOW BACK PAIN. SHE REPORTS INTERMITTENT BILATERAL LOWER EXTREMITY PAIN LEFT GREATER THAN RIGHT ALONG WITH WEAKNESS. LOWER EXTREMITY PAIN IS NOT DESCRIBED IN A PARTICULAR RADICULAR FASHION. SHE REFERS TO SCIATIC PAIN PAIN IN HER LOWER BACK AND BUTTOCKS. Objective: Vital Signs Temp Pulse Resp BP Pulse Ox 36.6 C 89 18 121/89 H 96 12/11/17 20:02 12/11/17 20:02 12/11/17 20:02 12/12/17 08:42 12/11/17 20:02 Laboratory Results 12/10/17 16:53 12/10/17 16:53 12/11/17 12/12/17 12/13/17 05:59 05:59 05:59 Intake Total 300 875 Output Total 600 2450 Balance -300 -1575 Physical Exam - Physical Exam General Appearance: WD/WN, alert, no apparent distress Respiratory: lungs clear, normal breath sounds Cardiac/Chest: No edema Abdomen: non-tender, soft Neuro/Psych: other (LEFT FOOT DROP. DECREASED MUSCLE MASS NOTED UPPER AND LOWER EXTREMITIES. FUNCTIONAL STRENGTH OF THE HIP FLEXORS AND ABDUCTORS. GOOD QUADRICEPS STRENGTH.) ICD10 Worksheet Patient Problems: Problems Problem Status Onset Altered mental status Acute Hypochloremia Acute Hypochloremia Acute Hypokalemia Acute Hyponatremia Acute Hyponatremia Acute Renal insufficiency Acute Spinal stenosis Acute Urinary tract infection Acute
[2017-12-12] MEDS: LUBIPROSTONE 8 MCG CAP PO SCH (10:14)
[2017-12-12] MEDS: METHOCARBAMOL 750 MG TAB PO PRN (15:31)
[2017-12-12] MEDS: morphINE SR 15 MG TAB PO SCH (19:39)
[2017-12-13] MEDS: ACETAMINOPHEN 500 MG TAB PO SCH ×3 (04:39→20:10)
[2017-12-13] MEDS: oxyCODONE IR 5 MG TAB PO PRN ×2 (04:39→17:01)
[2017-12-13] MEDS: BISACODYL 10 MG SUPP PR SCH (06:33)
[2017-12-13] MEDS: LUBIPROSTONE 8 MCG CAP PO SCH (09:11)
[2017-12-13] MEDS: ENOXAPARIN 40 MG/0.4 ML SYR SC SCH (09:11)
[2017-12-13] MEDS: MAGNESIUM OXIDE 400 MG TAB PO SCH ×2 (09:12→20:10)
[2017-12-13] MEDS: IRBESARTAN 150 MG TAB PO SCH (09:12)
[2017-12-13] MEDS: SENNOSIDES 1 TAB PO SCH ×2 (09:12→20:10)
[2017-12-13] MEDS: DULoxetine 30 MG CAP PO SCH ×2 (09:12→20:10)
[2017-12-13] MEDS: clonazePAM 0.5 MG TAB PO SCH ×2 (09:12→20:09)
--- NOTE | 2017-12-13 09:42 | SOAPPROG ---
SOAP Progress Note Assessment/Plan: Assessment: Debility with bilateral lower extremity weakness, left greater than right, following L3-L4 laminectomy, hematoma causing spinal cord compression, repeat surgery for evacuation of hematoma and further removal of old hardware from L1 to L3. * Initial functional independence measure is 61 on 11/30/2017, improved to 71 as of 12/07/2017. Standby assist for bed mobility with cues for spinal precautions. Transfers require standby assist for slide board, moderate assist for sit to stand. She ambulated 3 ft x 2, moderate assist, knee blocking, AFOs. She has self-propelled wheelchair 150 ft. Grooming and hygiene is done from the wheelchair with modified independence. Upper body dressing modified independent. Lower body dressing requires minimal to moderate assist. Bathing and toileting with modified independence, transfers with standby assist. * Continue PT and OT to optimize mobility and activities of daily living. PATIENT REPORTS THAT YESTERDAY SHE WALKED IN THE PARALLEL BARS AND USED A WALKER IN THE [employer]. Neuropathic pain and difficulty sleeping. CONTINUES TO COMPLAIN OF PAIN IN A SWING TRUNK DISTRIBUTION. MAY CONSIDER ADDING GABAPENTIN TO ADDRESS THIS * Addition of nortriptyline to fluoxetine was not successful. Has done better since transition from fluoxetine plus nortriptyline to duloxetine over 2 days, and 12/06/2017. * Started morphine SR 15 mg twice daily on 12/04/2017. Initiated acetaminophen 1000 mg q.8 hours and oxycodone 5-15 mg every 3 hr as needed, starting 2017. WILL DISCUSS WITH NURSING TO TRY TO ENCOURAGE PATIENT TO TAKE THE ACETAMINOPHEN AND ENCOURAGE PATIENT TO BEGIN SELF WEAN OFF OF OXYCODONE * No longer using oxycodone during the day. Will discontinue morning dose of morphine SR starting 12/12/2017. Constipation. Refractory to senna, polyethylene glycol, magnesium citrate, bisacodyl suppositories. * Constipation and neurogenic bowel issues discussed with Dr. Russ of Gastroenterology, , 12/08/2017. He does not believe that colonoscopy for disimpaction is an option. Per his advice initiated: * Methylnaltrexone 8 mcg QOD to remove the opiate induced constipation effect from the picture. * Discontinuation of polyethylene glycol. * Lubiprostone 8 mcg BID. Changed to daily starting 12/11/2017 due to multiple loose stools on 12/10/2017. * Continue senna and continue daily bisacodyl suppository. * Check electrolytes and magnesium q.3 days while on this protocol. Hypo magnesium 12/10/2017 and stable mild hyponatremia. Recheck 12/13/2017. HAVE ORDERED MAGNESIUM LEVEL AND AND BMP TO BE DRAWN ON THURSDAY MORNING. Hypomagnesia: Due to GI losses, or reduced absorption? * Initiate magnesium oxide 400 mg QD on 12/11/2017. MAGNESIUM LEVEL THIS MORNING STILL LOW AT 1.1, NORMAL RANGES NOTED TO BE 1.5-2.5, THEREFORE WILL INCREASE MAGNESIUM TO 400 TWICE DAILY AND MONITOR FOR DIARRHEA WHICH MAY BE A SIDE EFFECT OF THIS. Postoperative anemia and possible history of renal insufficiency. * Anemia progressed since hospitalization, with hemoglobin decreased from 11.2 to-8.9; subsequent improvement to 9.4 on 11/29/2017. * Essentially stable with hemoglobin 9.2 on 12/02/2017. Improved with H/H 10.7/ 31.3 on 12/10/2017. Wound care. [place] inadvertently removed early. * No S/Sx infection. Minimal serous drainage. Continue to monitor daily. Confusion noted by nursing on 12/10/2017. CBC and BMP without infectious or metabolic etiologies. Seems much less confused and knows her medications on . NURSING REPORTS CONTINUED CONFUSION. POSSIBLE URINARY TRACT INFECTION A CAUSE OF HER CONFUSION. SINCE NURSING REPORTS THAT HER SALAS HAS NOT BEEN CHANGED FOR 2 WEEKS, WILL WRITE AN ORDER TO DISCONTINUE CURRENT SALAS AND REPLACE AND OBTAIN URINALYSIS AND C&S THROUGH NEW SALAS. Chronic/stable issues: Neurogenic bladder. No response to bethanechol, and may be causing urinary frequency at night. * Discontinued bethanechol 11/30/2017. * [place] catheter placed 12/01/2017 as she is unable to self catheterization; she was accustomed to doing it it from a standing position and cannot stand currently. NURSING REPORTS THAT HER SALAS HAS NOT BEEN CHANGED FOR 2 WEEKS. THEREFORE HAVE WRITTEN AN ORDER TO D/C AND REPLACE SALAS CATHETER. * CONSIDER URODYNAMIC STUDIES IF NOT PREVIOUSLY OBTAINED Hyponatremia, stable at 134 on labs 12/02/2017. Osteoporosis. No vitamin-D deficiency. * She reports having used a bisphosphonate in the past. There is mention in hospital paperwork of history of hypercalcemia. Vitamin-D level at 93 on labs from 11/28/2017. * Chronic mild hypercalcemia with normal PTH on 12/02/2017. Hypertension. Continue irbesartan and adjust or add antihypertensives as needed. History of depression and anxiety. * Change from fluoxetine to to duloxetine for neuropathic pain effect. * Depressed mood due to 2 people in her life recently dying, much improved 2017. Weight loss with possible esophageal motility issues. She will have consultation with a dietitian regarding optimizing her nutrition with more manageable diet textures. Prophylaxis. She has greatly reduced mobility. I have initiated enoxaparin 40 mg subcutaneous q. day at a prophylactic dose. She is likely not at increased risk for GI bleeding, so I have not placed her on a proton pump inhibitor. DISPOSITION: Lives in a 1 story home with 3 steps to enter. She has a roommate who can help as well. Initial goal is safe transfers and community mobility with wheelchair. Tentative discharge date set for 12/16/2017. FOLLOW-UP: D/W Surgeon, Dr. Cody Leon. Can see for follow-up after her discharge from inpatient rehabilitation. Follow up with Urology regarding neurogenic bladder. Follow up with physiatry for ongoing care of leg weakness and spinal cord injury issues. Subjective: PATIENT DOES NOT VERBALIZE ANY COMPLAINTS THIS MORNING, HOWEVER NURSING REPORTS SHE SEEMS TO BE MORE CONFUSED CONFUSED. Objective: Vital Signs Temp Pulse Resp BP Pulse Ox 36.6 C 97 16 141/92 H 93 12/13/17 08:00 12/13/17 08:00 12/13/17 08:00 12/13/17 08:00 12/13/17 08:00 Laboratory Results 12/10/17 16:53 12/13/17 06:30 12/12/17 12/13/17 12/14/17 05:59 05:59 05:59 Intake Total 875 900 Output Total 2450 1100 Balance -1575 -200 Physical Exam - Physical Exam General Appearance: WD/WN, alert, no apparent distress Respiratory: lungs clear, normal breath sounds Abdomen: non-tender, soft Neuro/Psych: alert, oriented x 3, cognition abnormalities (SHE SEEMS TO HAVE SOME DIFFICULTY WITH SHORT-TERM MEMORY. SHE DID NOT RECALL HAVING HER BLOOD DRAWN EARLIER THIS MORNING BUT THEN SAID"SOMETHING HAPPENED AT 6:00 A.M."AND THEN REMEMBER THAT SHE HAD HER BLOOD DRAWN. SHE SEEMS TO PROVIDE A GOOD HISTORY OF HER PREVIOUS BACK PAIN AND SURGERIES, ALTHOUGH IT IS DIFFICULT TO TELL IF THERE IS SOME CONFLABULATION) ICD10 Worksheet Patient Problems: Problems Problem Status Onset Altered mental status Acute Hypochloremia Acute Hypochloremia Acute Hypokalemia Acute Hyponatremia Acute Hyponatremia Acute Renal insufficiency Acute Spinal stenosis Acute Urinary tract infection Acute
[2017-12-13] MEDS: METHYLNALTREXONE BROMIDE 12 MG/0.6 ML INJ SC SCH (09:43)
[2017-12-13] MEDS: SULFAMETHOX/TMP 800/160 MG 1 TAB PO SCH (20:10)
[2017-12-13] MEDS: morphINE SR 15 MG TAB PO SCH (20:10)
[2017-12-14] MEDS: ACETAMINOPHEN 500 MG TAB PO SCH ×3 (05:49→20:10)
[2017-12-14] MEDS: BISACODYL 10 MG SUPP PR SCH (05:50)
[2017-12-14] MEDS: LUBIPROSTONE 8 MCG CAP PO SCH (08:50)
[2017-12-14] MEDS: clonazePAM 0.5 MG TAB PO SCH ×2 (08:51→20:04)
[2017-12-14] MEDS: SULFAMETHOX/TMP 800/160 MG 1 TAB PO SCH ×2 (08:51→20:03)
[2017-12-14] MEDS: DULoxetine 30 MG CAP PO SCH ×2 (08:51→20:04)
[2017-12-14] MEDS: SENNOSIDES 1 TAB PO SCH ×2 (08:51→20:03)
[2017-12-14] MEDS: ENOXAPARIN 40 MG/0.4 ML SYR SC SCH (08:51)
[2017-12-14] MEDS: MAGNESIUM OXIDE 400 MG TAB PO SCH ×2 (08:51→20:03)
[2017-12-14] MEDS: IRBESARTAN 150 MG TAB PO SCH (08:54)
--- NOTE | 2017-12-14 11:50 | SOAPPROG ---
SOAP Progress Note Assessment/Plan: Assessment: Debility with bilateral lower extremity weakness, left greater than right, following L3-L4 laminectomy, hematoma causing spinal cord compression, repeat surgery for evacuation of hematoma and further removal of old hardware from L1 to L3. * Initial functional independence measure is 61 on 11/30/2017, improved to 71 as of 12/07/2017. Standby assist for bed mobility with cues for spinal precautions. Transfers require standby assist for slide board, moderate assist for sit to stand. She ambulated 3 ft x 2, moderate assist, knee blocking, AFOs. She has self-propelled wheelchair 150 ft. Grooming and hygiene is done from the wheelchair with modified independence. Upper body dressing modified independent. Lower body dressing requires minimal to moderate assist. Bathing and toileting with modified independence, transfers with standby assist. * Continue PT and OT to optimize mobility and activities of daily living. PATIENT REPORTS THAT YESTERDAY SHE WALKED IN THE [facility] AND USED A WALKER IN THE [employer] [facility]. Neuropathic pain and difficulty sleeping. CONTINUES TO COMPLAIN OF PAIN IN A SWING TRUNK DISTRIBUTION. MAY CONSIDER ADDING GABAPENTIN TO ADDRESS THIS * Addition of nortriptyline to fluoxetine was not successful. Has done better since transition from fluoxetine plus nortriptyline to duloxetine over 2 days, and 12/06/2017. * Started morphine SR 15 mg twice daily on 12/04/2017. Initiated acetaminophen 1000 mg q.8 hours and oxycodone 5-15 mg every 3 hr as needed, starting 2017. WILL DISCUSS WITH NURSING TO TRY TO ENCOURAGE PATIENT TO TAKE THE ACETAMINOPHEN AND ENCOURAGE PATIENT TO BEGIN SELF WEAN OFF OF OXYCODONE * No longer using oxycodone during the day. Will discontinue morning dose of morphine SR starting 12/12/2017. Constipation. Refractory to senna, polyethylene glycol, magnesium citrate, bisacodyl suppositories. * Constipation and neurogenic bowel issues discussed with Dr. Russ of Gastroenterology, , 12/08/2017. He does not believe that colonoscopy for disimpaction is an option. Per his advice initiated: * Methylnaltrexone 8 mcg QOD to remove the opiate induced constipation effect from the picture. * Discontinuation of polyethylene glycol. * Lubiprostone 8 mcg BID. Changed to daily starting 12/11/2017 due to multiple loose stools on 12/10/2017. * Continue senna and continue daily bisacodyl suppository. * Check electrolytes and magnesium q.3 days while on this protocol. Hypo magnesium 12/10/2017 and stable mild hyponatremia. Recheck 12/13/2017. HAVE ORDERED MAGNESIUM LEVEL AND AND BMP TO BE DRAWN ON THURSDAY MORNING. Hypomagnesia: Due to GI losses, or reduced absorption? * Initiate magnesium oxide 400 mg QD on 12/11/2017. MAGNESIUM LEVEL THIS MORNING STILL LOW AT 1.1, NORMAL RANGES NOTED TO BE 1.5-2.5, THEREFORE WILL INCREASE MAGNESIUM TO 400 TWICE DAILY AND MONITOR FOR DIARRHEA WHICH MAY BE A SIDE EFFECT OF THIS. Postoperative anemia and possible history of renal insufficiency. * Anemia progressed since hospitalization, with hemoglobin decreased from 11.2 to-8.9; subsequent improvement to 9.4 on 11/29/2017. * Essentially stable with hemoglobin 9.2 on 12/02/2017. Improved with H/H 10.7/ 31.3 on 12/10/2017. Wound care. [place] inadvertently removed early. * No S/Sx infection. Minimal serous drainage. Continue to monitor daily. Confusion noted by nursing on 12/10/2017. CBC and BMP without infectious or metabolic etiologies. Seems much less confused and knows her medications on . NURSING REPORTS CONTINUED CONFUSION. POSSIBLE URINARY TRACT INFECTION A CAUSE OF HER CONFUSION. SINCE NURSING REPORTS THAT HER SALAS HAS NOT BEEN CHANGED FOR 2 WEEKS, WILL WRITE AN ORDER TO DISCONTINUE CURRENT SALAS AND REPLACE AND OBTAIN URINALYSIS AND C&S THROUGH NEW SALAS. Chronic/stable issues: Neurogenic bladder. No response to bethanechol, and may be causing urinary frequency at night. * Discontinued bethanechol 11/30/2017. * Salas catheter placed 12/01/2017 as she is unable to self catheterization; she was accustomed to doing it it from a standing position and cannot stand currently. SALAS CATHETER CHANGED YESTERDAY * CONSIDER URODYNAMIC STUDIES IF NOT PREVIOUSLY OBTAINED URINARY TRACT INFECTION-URINALYSIS WAS POSITIVE WITH 3+ BACTERIA, TRACE LEUK ESTERASE. PATIENT REPORTS SUPRAPUBIC TENDERNESS AND PAIN WITH PALPATION. THESE FINDINGS, IN LIGHT OF INCREASED CONFUSION BUT TO TREATMENT OF UTI WITH BACTRIM DS. CULTURES PENDING. PATIENT STATES THAT SHE HAS A HISTORY OF CHRONIC URINARY TRACT INFECTION AND SHE REQUESTED THAT WE CONTACT DR. RHONDA COREA OF [facility] IN [facility] HER INTERNAL MEDICINE DOCTOR SHANEL SOLIS. WILL ASK THE BREWMASTER TO CONTACT OF THESE PHYSICIANS FOR MEDICAL RECORDS REGARDING POSSIBLE CHRONIC URINARY TRACT INFECTION Hyponatremia, stable at 134 on labs 12/02/2017. Osteoporosis. No vitamin-D deficiency. * She reports having used a bisphosphonate in the past. There is mention in hospital paperwork of history of hypercalcemia. Vitamin-D level at 93 on labs from 11/28/2017. * Chronic mild hypercalcemia with normal PTH on 12/02/2017. Hypertension. Continue irbesartan and adjust or add antihypertensives as needed. History of depression and anxiety. * Change from fluoxetine to to duloxetine for neuropathic pain effect. * Depressed mood due to 2 people in her life recently dying, much improved 2017. Weight loss with possible esophageal motility issues. She will have consultation with a dietitian regarding optimizing her nutrition with more manageable diet textures. Prophylaxis. She has greatly reduced mobility. I have initiated enoxaparin 40 mg subcutaneous q. day at a prophylactic dose. She is likely not at increased risk for GI bleeding, so I have not placed her on a proton pump inhibitor. DISPOSITION: Lives in a 1 story home with 3 steps to enter. She has a roommate who can help as well. Initial goal is safe transfers and community mobility with wheelchair. Tentative discharge date NOW SET FOR 12/18. FOLLOW-UP: D/W Surgeon, Dr. Cody Leon. Can see for follow-up after her discharge from inpatient rehabilitation. Follow up with Urology regarding neurogenic bladder. Follow up with physiatry for ongoing care of leg weakness and spinal cord injury issues. 12/14/17 11:48 Subjective: NURSING REPORTS COGNITION MAY BE IMPROVING THIS MORNING. NURSING ALSO REPORTS SHE HAS HAD SOME CONFUSION SINCE LAST THURSDAY. SHE WAS INFORMED OF RESULTS OF URINALYSIS AND INFORMED THAT SHE WAS STARTED ON BACTRIM DS DID TREAT SUSPECTED UTI, PARTICULARLY A POSSIBILITY OF THIS CAUSING SOME INCREASED CONFUSION. PATIENT STATES THAT SHE HAS A HISTORY OF CHRONIC URINARY TRACT INFECTION AND SHE REQUESTED THAT WE CONTACT DR. RHONDA ZAVALETA [employer] [facility] HER INTERNAL MEDICINE DOCTOR SHANEL SOLIS. Objective: Vital Signs Temp Pulse Resp BP Pulse Ox 36.5 C 113 H 16 122/86 H 95 12/14/17 06:21 12/14/17 08:53 12/14/17 06:21 12/14/17 08:54 12/14/17 06:21 Laboratory Results 12/10/17 16:53 12/13/17 06:30 12/13/17 12/14/17 12/15/17 05:59 05:59 05:59 Intake Total 900 400 Output Total 1100 1750 Balance -200 -1350 Physical Exam - Physical Exam General Appearance: WD/WN, alert, no apparent distress Respiratory: chest non-tender, lungs clear Cardiac/Chest: No edema Abdomen: other (POSITIVE FOR SUPRAPUBIC TENDERNESS) Skin: warm/dry Extremities: No swelling, No Mechelle's sign ICD10 Worksheet Patient Problems: Problems Problem Status Onset Altered mental status Acute Hypochloremia Acute Hypochloremia Acute Hypokalemia Acute Hyponatremia Acute Hyponatremia Acute Renal insufficiency Acute Spinal stenosis Acute Urinary tract infection Acute
[2017-12-14] MEDS: METHOCARBAMOL 750 MG TAB PO PRN (20:03)
[2017-12-14] MEDS: morphINE SR 15 MG TAB PO SCH (20:03)
[2017-12-15] MEDS: ACETAMINOPHEN 500 MG TAB PO SCH ×3 (06:23→20:16)
[2017-12-15] MEDS: BISACODYL 10 MG SUPP PR SCH (06:25)
[2017-12-15] MEDS: clonazePAM 0.5 MG TAB PO SCH ×2 (08:26→20:16)
[2017-12-15] MEDS: MAGNESIUM OXIDE 400 MG TAB PO SCH ×2 (08:29→20:16)
[2017-12-15] MEDS: SENNOSIDES 1 TAB PO SCH ×2 (08:29→20:16)
[2017-12-15] MEDS: IRBESARTAN 150 MG TAB PO SCH (08:29)
[2017-12-15] MEDS: DULoxetine 30 MG CAP PO SCH ×2 (08:30→20:16)
[2017-12-15] MEDS: SULFAMETHOX/TMP 800/160 MG 1 TAB PO SCH ×2 (08:30→20:16)
[2017-12-15] MEDS: ENOXAPARIN 40 MG/0.4 ML SYR SC SCH (08:30)
[2017-12-15] MEDS: METHYLNALTREXONE BROMIDE 12 MG/0.6 ML INJ SC SCH (08:51)
[2017-12-15] MEDS: LUBIPROSTONE 8 MCG CAP PO SCH (08:51)
--- NOTE | 2017-12-15 11:26 | SOAPPROG ---
SOAP Progress Note Assessment/Plan: Assessment: Debility with bilateral lower extremity weakness, left greater than right, following L3-L4 laminectomy, hematoma causing spinal cord compression, repeat surgery for evacuation of hematoma and further removal of old hardware from L1 to L3. * Initial functional independence measure is 61 on 11/30/2017, improved to 71 as of 12/07/2017. Standby assist for bed mobility with cues for spinal precautions. Transfers require standby assist for slide board, moderate assist for sit to stand. She ambulated 3 ft x 2, moderate assist, knee blocking, AFOs. She has self-propelled wheelchair 150 ft. Grooming and hygiene is done from the wheelchair with modified independence. Upper body dressing modified independent. Lower body dressing requires minimal to moderate assist. Bathing and toileting with modified independence, transfers with standby assist. * Continue PT and OT to optimize mobility and activities of daily living. Neuropathic pain and difficulty sleeping. BILATERAL ANTERIOR AND POSTERIOR THIGHS. CONSIDER ADDING GABAPENTIN TO ADDRESS THIS * Addition of nortriptyline to fluoxetine was not successful. Has done better since transition from fluoxetine plus nortriptyline to duloxetine over 2 days, and 12/06/2017. * Started morphine SR 15 mg twice daily on 12/04/2017. Initiated acetaminophen 1000 mg q.8 hours and oxycodone 5-15 mg every 3 hr as needed, starting 2017. Confusion -CONTINUE TO BE REPORTED BY STAFF. AFTER DISCUSSING HER CASE WITH NURSING, WILL DISCONTINUE THE MORPHINE THIS MAY BE THE SOURCE OF HER CONFUSION ESPECIALLY SINCE IT IS LONG ACTING. SHE CAN TAKE OXYCODONE FOR PAIN. CONTINUE ON BACTRIM, MY INITIAL CONCERN WAS THAT SHE WAS HAVING SOME CONFUSION FROM UTI, HOWEVER THE CULTURE CAME BACK WITH PROBABLE CONTAMINANT. SINCE PATIENT CONTINUES TO COMPLAIN OF URGENCY WILL CONTINUE BACTRIM. IF CONFUSION CONTINUES ONCE MORPHINE HAS CLEARED, WOULD CONSIDER HEAD CT TO RULE OUT CENTRAL CAUSE OF CONFUSION Constipation. Refractory to senna, polyethylene glycol, magnesium citrate, bisacodyl suppositories. * Constipation and neurogenic bowel issues discussed with Dr. Russ of Gastroenterology, , 12/08/2017. He does not believe that colonoscopy for disimpaction is an option. Per his advice initiated: * Methylnaltrexone 8 mcg QOD to remove the opiate induced constipation effect from the picture. * Discontinuation of polyethylene glycol. * Lubiprostone 8 mcg BID. Changed to daily starting 12/11/2017 due to multiple loose stools on 12/10/2017. * Continue senna and continue daily bisacodyl suppository. * Check electrolytes and magnesium q.3 days while on this protocol. Hypo magnesium 12/10/2017 and stable mild hyponatremia. Recheck 12/13/2017. HAVE ORDERED MAGNESIUM LEVEL AND AND BMP TO BE DRAWN ON THURSDAY MORNING. Hypomagnesia: Due to GI losses, or reduced absorption? * Initiate magnesium oxide 400 mg QD on 12/11/2017. MAGNESIUM LEVEL 12/14 1.1, NORMAL RANGES NOTED TO BE 1.5-2.5, THEREFORE MAGNESIUM INCREASED TO 400 MG TWICE DAILY Postoperative anemia and possible history of renal insufficiency. * Anemia progressed since hospitalization, with hemoglobin decreased from 11.2 to-8.9; subsequent improvement to 9.4 on 11/29/2017. * Essentially stable with hemoglobin 9.2 on 12/02/2017. Improved with H/H 10.7/ 31.3 on 12/10/2017. Wound care. [place] inadvertently removed early. * No S/Sx infection. Minimal serous drainage. Continue to monitor daily. Chronic/stable issues: Neurogenic bladder. No response to bethanechol, and may be causing urinary frequency at night. * Discontinued bethanechol 11/30/2017. * Salas catheter placed 12/01/2017 as she is unable to self catheterization; she was accustomed to doing it it from a standing position and cannot stand currently. SALAS CATHETER CHANGED YESTERDAY * CONSIDER URODYNAMIC STUDIES IF NOT PREVIOUSLY OBTAINED URINARY TRACT INFECTION-URINALYSIS WAS POSITIVE WITH 3+ BACTERIA, TRACE LEUK ESTERASE. PATIENT REPORTS SUPRAPUBIC TENDERNESS AND PAIN WITH PALPATION. THESE FINDINGS, IN LIGHT OF INCREASED CONFUSION BUT TO TREATMENT OF UTI WITH BACTRIM DS. CULTURES PENDING. PATIENT STATES THAT SHE HAS A HISTORY OF CHRONIC URINARY TRACT INFECTION AND SHE REQUESTED THAT WE CONTACT DR. RHONDA COREA OF [facility] IN [place] [facility] HER INTERNAL MEDICINE DOCTOR SHANEL SOLIS. WILL ASK THE EXTRUDER OPERATOR [employer] TO CONTACT OF THESE PHYSICIANS FOR MEDICAL RECORDS REGARDING POSSIBLE CHRONIC URINARY TRACT INFECTION Hyponatremia, stable at 134 on labs 12/02/2017. Osteoporosis. No vitamin-D deficiency. * She reports having used a bisphosphonate in the past. There is mention in hospital paperwork of history of hypercalcemia. Vitamin-D level at 93 on labs from 11/28/2017. * Chronic mild hypercalcemia with normal PTH on 12/02/2017. Hypertension. Continue irbesartan and adjust or add antihypertensives as needed. BLOOD PRESSURE THIS MORNING 140/90. WILL CONTINUE TO MONITOR History of depression and anxiety. * Change from fluoxetine to to duloxetine for neuropathic pain effect. * Depressed mood due to 2 people in her life recently dying, much improved 2017. Weight loss with possible esophageal motility issues. She will have consultation with a dietitian regarding optimizing her nutrition with more manageable diet textures. Prophylaxis. She has greatly reduced mobility. I have initiated enoxaparin 40 mg subcutaneous q. day at a prophylactic dose. She is likely not at increased risk for GI bleeding, so I have not placed her on a proton pump inhibitor. DISPOSITION: Lives in a 1 story home with 3 steps to enter. She has a roommate who can help as well. Initial goal is safe transfers and community mobility with wheelchair. Tentative discharge date NOW SET FOR 12/18. FOLLOW-UP: D/W Surgeon, Dr. Cody Leon. Can see for follow-up after her discharge from inpatient rehabilitation. Follow up with Urology regarding neurogenic bladder. Follow up with physiatry for ongoing care of leg weakness and spinal cord injury issues. 12/14/17 11:48 12/15/17 10:56 Subjective: PATIENT REPORTS SHE IS FRUSTRATED THAT SHE IS BEING AWAKENED FOR MEDICATIONS AFTER SHE GOES ASLEEP AT 8:30 A.M. NURSING REPORTS THAT HER MEDICATIONS WERE GIVEN LAST NIGHT AT 8:00 P.M.. ALSO REPORTS THAT SHE IS FRUSTRATED THAT SHE IS AWAKEN EARLY IN THE MORNING HER MEDICATIONS. NURSING STAFF AND STAFF CONTINUE TO REPORT THAT SHE IS CONFUSED. Objective: Vital Signs Temp Pulse Resp BP Pulse Ox 36.6 C 92 20 140/90 H 91 L 12/15/17 06:48 12/15/17 06:48 12/15/17 06:48 12/15/17 06:48 12/15/17 06:48 Laboratory Results 12/10/17 16:53 12/13/17 06:30 12/14/17 12/15/17 12/16/17 05:59 05:59 05:59 Intake Total 400 1200 560 Output Total 1750 1225 Balance -1350 -25 560 Physical Exam - Physical Exam General Appearance: WD/WN, no apparent distress Respiratory: lungs clear, normal breath sounds Abdomen: non-tender, soft Skin: normal color Extremities: normal range of motion, No swelling, No Mechelle's sign Neuro/Psych: motor weakness (BILATERAL LOWER EXTREMITY WEAKNESS LEFT FOOT DROP. MILD WEAKNESS OF THE RIGHT ANKLE DORSIFLEXORS.) ICD10 Worksheet Patient Problems: Problems Problem Status Onset Altered mental status Acute Hypochloremia Acute Hypochloremia Acute Hypokalemia Acute Hyponatremia Acute Hyponatremia Acute Renal insufficiency Acute Spinal stenosis Acute Urinary tract infection Acute
[2017-12-15] MEDS ORDERED: SODIUM CL NASAL GEL 14.1 GM TUBE TP PRN (18:04)
[2017-12-15] MEDS: oxyCODONE IR 5 MG TAB PO PRN (20:20)
[2017-12-15] MEDS: METHOCARBAMOL 750 MG TAB PO PRN (20:20)
[2017-12-16] MEDS: METHOCARBAMOL 750 MG TAB PO PRN ×2 (05:42→13:54)
[2017-12-16] MEDS: ACETAMINOPHEN 500 MG TAB PO SCH ×4 (05:42→20:43)
[2017-12-16] MEDS: BISACODYL 10 MG SUPP PR SCH (05:42)
[2017-12-16 07:54] LABS: PLATELET COUNT 154 10^3/uL (150-400)
[2017-12-16 08:05] LABS: PROTIME(PATIENT) 13.4 SEC (12.0-15.0)
[2017-12-16] MEDS: clonazePAM 0.5 MG TAB PO SCH ×2 (09:28→20:39)
[2017-12-16] MEDS: ENOXAPARIN 40 MG/0.4 ML SYR SC SCH (09:29)
[2017-12-16] MEDS: DULoxetine 30 MG CAP PO SCH ×2 (09:29→20:39)
[2017-12-16] MEDS: LUBIPROSTONE 8 MCG CAP PO SCH (09:30)
[2017-12-16] MEDS: IRBESARTAN 150 MG TAB PO SCH (09:30)
[2017-12-16] MEDS: SENNOSIDES 1 TAB PO SCH ×2 (09:31→20:39)
[2017-12-16] MEDS: SULFAMETHOX/TMP 800/160 MG 1 TAB PO SCH (09:31)
[2017-12-16] MEDS: MAGNESIUM OXIDE 400 MG TAB PO SCH ×2 (09:31→20:39)
--- NOTE | 2017-12-16 10:59 | SOAPPROG ---
SOAP Progress Note Assessment/Plan: Assessment: 67-year-old woman status post evacuation of lumbar hematoma and compression of cauda equina following a L3-L4 laminectomy, bilateral lower extremity weakness left greater than right, lower motor neuron bowel and bladder. MRI 11/25/2017 shows stenosis at the level of L2 and L3 with the conus ending at L1. Debility with bilateral lower extremity weakness, left greater than right, following L3-L4 laminectomy, hematoma causing spinal cord compression, repeat surgery for evacuation of hematoma and further removal of old hardware from L1 to L3. * Initial functional independence measure is 61 on 11/30/2017, improved to 71 as of 12/07/2017; improved to 78 as of 12/14/2017. Bed mobility standby assist for logroll. Working on transfers with minimal assist. Ambulated 15 ft with front wheeled walker and bilateral AFOs; otherwise working on gait with the [employer] weight-supported treadmill. Standby assist for bed mobility with cues for spinal precautions. Transfers require standby assist for slide board, moderate assist for sit to stand. She ambulated 3 ft x 2, moderate assist, knee blocking , AFOs. She has self-propelled wheelchair 150 ft. Grooming and hygiene is done from the wheelchair with modified independence. Upper and lower body dressing are done with standby assist. Bathing and toileting with modified independence, transfers with standby assist. * Continue PT and OT to optimize mobility and activities of daily living. Neuropathic pain and difficulty sleeping. * Addition of nortriptyline to fluoxetine was not successful. Has done better since transition from fluoxetine plus nortriptyline to duloxetine over 2 days, and 12/06/2017. * Started morphine SR 15 mg twice daily on 12/04/2017. Initiated acetaminophen 1000 mg q.8 hours and oxycodone 5-15 mg every 3 hr as needed, starting 2017. * Morphine has been discontinued. Continues to use occasional oxycodone. Constipation. Refractory to senna, polyethylene glycol, magnesium citrate, bisacodyl suppositories. * Constipation and neurogenic bowel issues discussed with Dr. Russ of Gastroenterology, , 12/08/2017. He does not believe that colonoscopy for disimpaction is an option. Per his advice initiated: * Methylnaltrexone 8 mcg QOD to remove the opiate induced constipation effect from the picture. * Discontinuation of polyethylene glycol. * Lubiprostone 8 mcg BID. Changed to daily starting 12/11/2017 due to multiple loose stools on 12/10/2017. * Continue senna and continue daily bisacodyl suppository. * Check electrolytes and magnesium q.3 days while on this protocol. Hypo magnesium 12/10/2017 and stable mild hyponatremia. Recheck 12/13/2017. Hypomagnesia: Due to GI losses, or reduced absorption? * Initiate magnesium oxide 400 mg QD on 12/11/2017. * Magnesium 1.1 on 12/13/2017. Dose increased to 400 mg twice daily. Recheck on 12/20/2017. UTI. Preliminary culture with Enterococcus faecalis and E coli on 12/16/2017. * Changed antibiotic from Bactrim to nitrofurantoin on 12/16/2017 to cover Enterococcus. Await culture and sensitivities. * Discontinue [place] today 12/16/2017, and initiate intermittent catheterization with nurse to train patient to do it herself from a seated position. Postoperative anemia and possible history of renal insufficiency. * Anemia progressed since hospitalization, with hemoglobin decreased from 11.2 to-8.9; subsequent improvement to 9.4 on 11/29/2017. * Essentially stable with hemoglobin 9.2 on 12/02/2017. Improved with H/H 10.7/ 31.3 on 12/10/2017. Continues to improve on labs 12/16/2017. Wound care. [place] inadvertently removed early. * No S/Sx infection. Minimal serous drainage. Continue to monitor daily. Confusion noted by nursing on 12/10/2017. CBC and BMP without infectious or metabolic etiologies. Seems much less confused and knows her medications on . Chronic/stable issues: Neurogenic bladder. No response to bethanechol, and may be causing urinary frequency at night. * Discontinued bethanechol 11/30/2017. * [place] catheter placed 12/01/2017 as she is unable to self catheterization; she was accustomed to doing it it from a standing position and cannot stand currently. Hyponatremia, stable at 134 on labs 12/02/2017. Chronic, stable. Osteoporosis. No vitamin-D deficiency. * She reports having used a bisphosphonate in the past. There is mention in hospital paperwork of history of hypercalcemia. Vitamin-D level at 93 on labs from 11/28/2017. * Chronic mild hypercalcemia with normal PTH on 12/02/2017. Hypertension. Continue irbesartan and adjust or add antihypertensives as needed. History of depression and anxiety. * Change from fluoxetine to to duloxetine for neuropathic pain effect. * Depressed mood due to 2 people in her life recently dying, much improved 2017. Weight loss with possible esophageal motility issues. She will have consultation with a dietitian regarding optimizing her nutrition with more manageable diet textures. Prophylaxis. She has greatly reduced mobility. I have initiated enoxaparin 40 mg subcutaneous q. day at a prophylactic dose. She is likely not at increased risk for GI bleeding, so I have not placed her on a proton pump inhibitor. DISPOSITION: Lives in a 1 story home with 3 steps to enter. She has a roommate who can help as well. Initial goal is safe transfers and community mobility with wheelchair. [facility]tic[facility] facility [facility]. Brother is evaluating facilities in the area. FOLLOW-UP: D/W Surgeon, Dr. Cody Leon. Can see for follow-up after her discharge from inpatient rehabilitation. Follow up with Urology regarding neurogenic bladder. Follow up with physiatry for ongoing care of leg weakness and spinal cord injury issues. 12/11/17 11:06 12/11/17 13:48 12/16/17 12:29 Subjective: Had suprapubic and back pain this morning but better now. Having regular bowel movements. Wants [place] removed if possible. Otherwise no complaints. Objective: Vital Signs Temp Pulse Resp BP Pulse Ox 36.5 C 92 15 130/87 H 96 12/16/17 05:49 12/16/17 05:49 12/16/17 05:49 12/16/17 09:30 12/16/17 05:49 Laboratory Results 12/16/17 06:05 12/13/17 06:30 12/15/17 12/16/17 12/17/17 05:59 05:59 05:59 Intake Total 1200 1400 Output Total 1225 1000 Balance -25 400 PT 13.4 SEC (12.0-15.0) 12/16/17 06:05 INR 1.00 (0.83-1.16) 12/16/17 06:05 Physical Exam - Physical Exam General Appearance: WD/WN, alert, no apparent distress Respiratory: normal breath sounds, No crackles, No rhonchi, No wheezing Cardiac/Chest: regular rate, rhythm, No edema, No diastolic murmur, No systolic murmur Skin: normal color, warm/dry Neuro/Psych: alert, normal mood/affect, oriented x 3, motor weakness (Bilateral lower extremities) ICD10 Worksheet Patient Problems: Problems Problem Status Onset Altered mental status Acute Hypochloremia Acute Hypochloremia Acute Hypokalemia Acute Hyponatremia Acute Hyponatremia Acute Renal insufficiency Acute Spinal stenosis Acute Urinary tract infection Acute
[2017-12-16] MEDS: NITROFURANTOIN MACROBID 100 MG CAP PO SCH ×2 (11:04→20:39)
[2017-12-17] MEDS: METHOCARBAMOL 750 MG TAB PO PRN (01:39)
[2017-12-17 05:13] VITALS: BP 123/85
[2017-12-17] MEDS: BISACODYL 10 MG SUPP PR SCH ×2 (05:49→07:26)
[2017-12-17] MEDS: ACETAMINOPHEN 500 MG TAB PO SCH (05:49)
[2017-12-17] MEDS: ENOXAPARIN 40 MG/0.4 ML SYR SC SCH (09:11)
[2017-12-17] MEDS: clonazePAM 0.5 MG TAB PO SCH (09:12)
[2017-12-17] MEDS: IRBESARTAN 150 MG TAB PO SCH (09:12)
[2017-12-17] MEDS: NITROFURANTOIN MACROBID 100 MG CAP PO SCH (09:12)
[2017-12-17] MEDS: DULoxetine 30 MG CAP PO SCH (09:12)
[2017-12-17] MEDS: LUBIPROSTONE 8 MCG CAP PO SCH (09:13)
[2017-12-17] MEDS: MAGNESIUM OXIDE 400 MG TAB PO SCH (09:15)
[2017-12-17] MEDS: SENNOSIDES 1 TAB PO SCH (09:15)
--- NOTE | 2017-12-17 16:35 | PDOREHIP ---
Admission [facility] - Admission - 3 Day Assessment Period Admission Date/Day 1: 11/27/17 Day 2: 11/28/17 Day 3: 11/29/17 - Active Diagnoses Comorbidities and Co-existing Conditions at Admission: 87153. None of the Above Discharge [facility] - Discharge - 3 Day Assessment Period 2 Days Prior to Anticipated Discharge Date: 12/15/17 1 Day Prior to Anticipated Discharge Date: 12/16/17 Anticipated Discharge Date: 12/17/17 - Discharge Skin Conditions Unhealed Pressure Ulcer (1 or more/Stage 1 or >)-Discharge: 0. No # Stage 1 Pressure Ulcers-Discharge: 0 # Stage 2 Pressure Ulcers-Discharge: 0 # of These Stage 2 Pressure Ulcers Present on Admission: 0 # Stage 3 Pressure Ulcers-Discharge: 0 # of These Stage 3 Pressure Ulcers Present on Admission: 0 # Stage 4 Pressure Ulcers-Discharge: 0 # of These Stage 4 Pressure Ulcers Present on Admission: 0 # Unstageable Pressure Ulcers (Non-remove Dress)-Discharge: 0 # These Unstageable Pressure Ulcers (NRD)-Present on Admit: 0 # Unstageable Pressure Ulcers ([place]char)-Discharge: 0 # These Unstageable Pressure Ulcers([place]) Present on Admit: 0 # Unstageable Pressure Ulcers (Deep Tissue Injury)-Discharge: 0 # These Unstageable Pressure Ulcers (DTI) Present on Admit: 0
--- NOTE | 2017-12-17 21:25 | GDS ---
ADMISSION DIAGNOSIS: Debility status post lumbar surgery. DISCHARGE DIAGNOSIS: Debility status post lumbar surgery. OTHER DISCHARGE DIAGNOSES: 1. Neuropathic pain. 2. Neurogenic bladder. 3. Neurogenic bowel. 4. Hypomagnesemia. 5. Urinary tract infection. 6. Hyponatremia. 7. Osteoporosis. 8. Depression/anxiety. COMPLICATIONS: There were none. CONSULTATION: There were none. PROCEDURES: There were none. HISTORY AND HOSPITAL COURSE: This patient was admitted from [facility]. She had a history of prior lumbar fusion surgery. She fell while in [place] where her lives, and after her return to the [facility], sought medical care for worsening back pain and leg weakness. She ultimately needed revision surgery. She had hardware removal and a laminectomy. Post surgery, she had a hematoma causing spinal cord compression, and she had repeat surgery for the hematoma. Laminectomy was at L3 and L4. She was quite debilitated when she was initially admitted. Her initial functional independence measure was 61 on 11/30/2017, which is consistent with [facility] level of care. She needed assistance with all mobility related activities of daily living. Functional independence measure improved to 78 as of 12/14/2017, which is close to assisted living level of care. She is requiring standby assist for bed mobility. She was independent or close to independent with transfers using a sliding board and was working on stand pivot transfers. She had ambulated 15 feet with a front-wheeled walker and bilateral AFOs, and she was working with the [employer]ite Gait weight supported treadmill to improve her gait. She required standby assist for bed mobility with cues for spinal precautions. She had self propelled a wheelchair independently 150 feet. She was doing grooming and hygiene from the wheelchair with modified independence. Upper and lower body dressing were done with standby assist. Bathing and toileting required modified independence and bath and toilet transfers required standby assist. She had issues with pain control and ability to sleep. Addition of nortriptyline to the fluoxetine, which she had been taking previously, was not successful regarding either issue. These were discontinued, and she was begun on duloxetine titrated over 2 days with a full dose of 30 mg b.i.d. initiated on 12/06/2017. She was also begun on morphine sustained release 15 mg twice a day. She had improved sleep, and her pain progressively improved until by the day of discharge, the long-acting morphine had been discontinued, and she had not used any oxycodone for several days. She had constipation, which proved refractory to senna, polyethylene glycol, magnesium citrate, and bisacodyl suppositories. It was suspected that she had neurogenic bowel. There was discussion with [place] tribunal member, Dr. Russ, who advised initiating methylnaltrexone to remove the opiate-induced constipation affect and initiating lubiprostone. Lubiprostone was started on 12/08/2017. She had multiple loose stools, and the lubiprostone was changed to daily starting 12/11/2017. Methylnaltrexone was discontinued and had not been used since 12/14/2017. She also had a history of neurogenic bladder and had been in the habit of self- catheterizing. However, she did this from a standing physician, which she was unable to achieve due to her leg weakness. A voiding trial was done with the addition of bethanechol to try to improve bladder contractility and this was not successful. Shelton catheter was placed. On the day before discharge, Shelton catheter was removed and she was able to void spontaneously with insignificant postvoid residuals, so symptomatically both neurogenic bowel and neurogenic bladder resolved during her rehabilitation stay. She developed hypomagnesemia, possibly due to lack of GI absorption. She was treated with magnesium oxide 400 mg q. day starting 12/11/2017. Her magnesium was 1.1 on 12/13/2017. The dose was increased to 400 mg twice daily. She had episodes of confusion. She also had suprapubic pressure. She was diagnosed with a UTI. Culture grew Enterococcus faecalis and Escherichia coli on 12/16/2017. These were pansensitive. She had initially been treated with Bactrim. This was changed to nitrofurantoin on 12/16/2017 to cover Enterococcus and should be continued for 5 days or through 12/21/2017. The Shelton catheter was discontinued on 12/16/2017. She had postoperative anemia and had steady improvement. On labs on 12/16/2017 , hemoglobin was 10.9 and hematocrit was 32.1. She had stable hyponatremia throughout her stay on multiple laboratory determinations. Her sodium remained at 134. With history of osteoporosis and report of several years of being treated with bisphosphonates, vitamin D level was checked and it was not low. DISCHARGE PLAN: Condition upon discharge is good. Activity is ad tracey, but she needs assistance with all mobility related activities of daily living. DESTINATION: She is discharging to [facility], where she will continue skilled rehabilitation services for a more prolonged period than is possible at inpatient rehabilitation. She eventually hopes to return home independently. DIET: Regular. MEDICATIONS ON DISCHARGE: 1. Acetaminophen 1000 mg p.o. q.8 hours. 2. Clonazepam 0.5 mg p.o. b.i.d. 3. Duloxetine 30 mg p.o. b.i.d. 4. Enoxaparin 40 mg subcutaneous q. day. 5. Irbesartan 150 mg p.o. q. day. 6. Magnesium oxide 400 mg p.o. b.i.d. 7. Methocarbamol 750 mg p.o. q.8 hours p.r.n. 8. Nitrofurantoin 100 mg p.o. b.i.d. through 12/21/2017. 9. Oxycodone 5 mg p.o. q.4 hours p.r.n. 10. Senna 1 tablet p.o. b.i.d. ISSUES TO BE ADDRESSED AT FOLLOWUP: 1. Mobility and activities of daily living. She will continue PT and OT at the [facility] and can follow up with her new attending physician there. 2. Hypomagnesemia. She should have a recheck of her magnesium level within several days of admission to the [facility]. 3. Anemia is improving, and she can have her CBC rechecked periodically. 4. Urinary tract infection. This may well clear simply with discontinuation of the Shelton catheter. Would continue nitrofurantoin for a total of 5 days. There is no need for a repeat urinalysis for test of cure. 5. Postsurgical status. She will follow up with orthopedic surgeon, Dr. Cody Leon. 6. If she continues to have any symptoms of neurogenic bladder, she should follow up with a urologist. 7. She should follow up with a mash filter cloth changer for ongoing care of leg weakness and spinal cord injury issues if these symptoms persist. Copy requested to: Attn: New attending physician [facility] /[id number]/[id number] [email or web address]
== END 2017-12-17 14:26 | DRG 949 ==
LOC: BREH 13:34
PROVIDERS: ADMIT Internal Medicine; ATTEND Internal Medicine
PROC: F0636ZZ Communicative/Cognitive Integration Skills Treatment of Neurological System - Whole Body (ICD-10-PCS; principal; 2017-11-27)
PROC: F07M3ZZ Motor Function Treatment of Musculoskeletal System - Whole Body (ICD-10-PCS; principal; 2017-11-27)
PROC: F08Z7ZZ Vocational Activities and Functional Community or Work Reintegration Skills Treatment (ICD-10-PCS; principal; 2017-11-27)
DX: Z48.811 Encounter for surgical aftercare following surgery on the nervous system (principal); M47.16 Other spondylosis with myelopathy, lumbar region; Z98.1 Arthrodesis status; N31.9 Neuromuscular dysfunction of bladder, unspecified; D64.89 Other specified anemias; R63.4 Abnormal weight loss; K22.4 Dyskinesia of esophagus; M81.0 Age-related osteoporosis without current pathological fracture; K59.00 Constipation, unspecified; I10 Essential (primary) hypertension; F41.9 Anxiety disorder, unspecified; F32.9 Major depressive disorder, single episode, unspecified; E83.42 Hypomagnesemia; N39.0 Urinary tract infection, site not specified; K59.2 Neurogenic bowel, not elsewhere classified; E87.1 Hypo-osmolality and hyponatremia
CPT/HCPCS: 82607-90; 92507-GN; 92523-GN; 92610-GN; 97110-GO; 97110-GP; 97112-GP; 97116-GP; 97140-GP; 97162-GP; 97166-GO; 97530-GO; 97530-GP; 97535-GO; 97542-GP; G0515-GO; J1650; J2212